=== PATIENT | female | born 1940 | race Caucasian/White ===

== ENCOUNTER 2018-12-14 07:16 | Outpatient (CLI) | payer MEDICARE ==
--- NOTE | 2018-12-14 08:17 | ULT ---
US Gallbladder RUQ HISTORY: Right upper quadrant abdominal pain COMPARISON: None. FINDINGS: The echogenicity of the liver is coarse likely due to fatty infiltration. No focal mass or intrahepatic ductal dilatation is seen. The pancreas and right kidney are normal. Multiple shadowing gallstones are seen without gallbladder wall thickening or pericholecystic fluid. The commo n duct measures 4 mm in diameter. No free fluid is seen in the Estrada's pouch. IMPRESSION: Cholelithiasis.
--- NOTE | 2018-12-14 10:40 | CT ---
CT ABDOMEN AND PELVIS WITH IV CONTRAST 12/14/2018 CLINICAL INFORMATION: Abdominal pain for one week. History of prior appendectomy as well as history of breast cancer. COMPARISON: None. Technique: Multiple contiguous axial CT images are obtained through the abdomen and pelvis with IV contrast. Cor onal reformatted images are provided. FINDINGS: Lower Chest: Postsurgical changes related to CABG are noted. Vascular calcifications are seen in the coronary arteries. Atelectasis is present in the lingula. 2 punctate pleural-based nodular densities are seen at the posterolateral right lung base stable from prior exam. Tiny punctate pulmon jason nodule is seen at the left lung base laterally which is also stable from the prior exam making potential representing small calcified granuloma. Vessels: Dense vascular calcifications are seen in the normal aorta involving the iliac arteries. The re is mild focal aneurysmal dilatation of the infrarenal abdominal aorta measuring approximately 3 cm in greatest AP dimension. Abdomen: Portal vein:Patent Gallbladder: Within normal limits for CT imaging. Liver: Calcified granulomata are seen. Pancreas: within normal limits. Spleen: Calcified granulomata are seen. Adrenals: within normal limits. Kidneys: A 12 mm low-density cystic lesion is seen in the midportion right kidney with a smaller hypo dense cystic lesion seen in the midportion left kidney which are difficult to further characterize but statistically likely represent cysts. There is an exophytic 3.9 cm cystic lesion inferior pole le ft kidney demonstrating attenuation coefficient consistent with a cyst. Bowel: There is colonic diverticulosis. Loops of small bowel are normal in caliber. Appendix: Not visualized. Patient has reported history of prior appendectomy. Peritoneum: No ascites or free air; no fluid collection. Mesentery and Retroperitoneum: No enlarged mesenteric or retroperitoneal lymph nodes. Abdominal Wall: Small focal area of stranding is seen in the adipose layer right posterior lateral ch est which may be related to minimal contusion in this region. Pelvis: Reproductive Organs: The uterus is small in size. Pelvis within normal limits. Bladder: within normal limits. Bones: Degenerative changes are seen in the spine. 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 No lytic or sclerotic osseous lesions are appreciated. IMPRESSION: 1. Difficult to characterize hypodense lesions in each kidney, but these lesions statistically likely represent small cysts. There is a larger exophytic left renal cyst identified. 2. Colonic diverticulosis. 3. No acute findings are seen in the abdomen or pelvis. 4. Dense vascular calcifications. 5. Tiny less than 3 mm nodular densities at each lung base. 6. Small focal aneurysmal dilatation of the abdominal aorta which measures 3 cm.
[2018-12-14] MEDS ORDERED: Iopamidol 370 76% 100 ML VIAL ONE (11:14)
== END 2018-12-14 07:17 | disposition home or self-care (01) ==
LOC: CT 07:16
PROVIDERS: ATTEND Family Medicine
DX: R10.9 Unspecified abdominal pain (principal); R63.4 Abnormal weight loss; N28.89 Other specified disorders of kidney and ureter; K57.30 Diverticulosis of large intestine without perforation or abscess without bleeding; I70.90 Unspecified atherosclerosis; R91.8 Other nonspecific abnormal finding of lung field; I77.811 Abdominal aortic ectasia; K80.20 Calculus of gallbladder without cholecystitis without obstruction
CPT/HCPCS: 74177; 76705; Q9967

== ENCOUNTER 2019-10-01 15:32 | Inpatient (IN) | payer MEDICARE ==
[2019-10-01] MEDS ORDERED: Furosemide 40 MG/4 ML VIAL ONE ×2 (16:56→20:18)
[2019-10-01 17:29] LABS: #Eosinphils 0.1 thou/uL (0.0-0.7); #Monocytes 0.6 thou/uL (0.11-0.59); #Neutrophils 11.3 thou/uL (1.40-6.50); %Basophils 0.3 % (0.0-1.0); %Eosinophils 0.7 % (0.0-10.0); %Lymphocytes 7.6 % (21.0-51.0); %Monocytes 4.4 % (0.0-10.0); %Neutrophils 86.9 % (42.0-75.0); Hemoglobin 7.3 g/dL (12.0-16.0); Mean Corpuscular HGB CONC 30.4 g/dL (32.0-36.0); Mean Corpuscular Hemoglobin 24.3 pg (27.0-31.0); Mean Corpuscular Volume 79.8 fL (78.0-98.0); Mean Platelet Volume 9.5 fL (7.4-10.4); Platelet Count 354 thou/uL (130-400); RBC Distribution Width 15.7 % (11.5-14.5); White Blood Cell (WBC) Count 13.1 thou/uL (4.8-10.8)
--- NOTE | 2019-10-01 17:37 | RAD ---
Chest AP view INDICATION: History of volume overload COMPARISON: October 03, 2016 and October 01, 2019 FINDINGS: Lungs:Left basilar pleural-parenchymal opacity persists suspicious for volume loss. Component of the left lower lobe pneumonia is not excluded. Cardiac silhouette:There is stable moderate cardiomegaly Pulmonary vasculature:Normal Pleural spaces:There is a moderate left and tiny right pleural effusion which is stable. Upper abdomen:No abnormality seen. Osseous structures: No acute osseous abnormality. Additional findings:Post-CABG changes stable IMPRESSION: Stable moderate left and tiny right pleural effusion. Stable moderate cardiomegaly. Persi stent left basilar airspace opacity most suspicious for volume loss. Pneumonia is not entirely excluded. Recommend correlation with the clinical exam.
[2019-10-01 18:00] LABS: ALT (SGPT) 13 U/L (8-55); AST (SGOT) 16 U/L (5-34); Albumin 4.1 g/dL (3.4-4.8); Alkaline Phosphatase 141 U/L (40-110); Anion Gap 15 mmol/L (10-20); BUN (Urea Nitrogen) 28 mg/dL (9.8-20.1); Bilirubin, Total 0.2 mg/dL (0.2-1.2); Calc. Creatinine Clearance 0 mL/min (70-130); Calcium 9.1 mg/dL (7.8-10.44); Carbon Dioxide 31 mmol/L (23-31); Chloride 100 mmol/L (98-107); Estimated GFR-MDRD 46; Glucose 229 mg/dL (83-110); Protein, Total 7.1 g/dL (6.0-8.3); Sodium 141 mmol/L (136-145)
[2019-10-01 18:14] LABS: CKMB 1.7 ng/mL (0-6.6)
[2019-10-01 21:33] LABS: Troponin I 0.087 ng/mL (< 0.028)
[2019-10-01] MEDS ORDERED: Ondansetron PF 4 MG/2 ML Vial IVP PRN (22:01)
[2019-10-01] MEDS ORDERED: Ondansetron ODT 4 MG TAB SL PRN (22:01)
[2019-10-02 00:39] LABS: Troponin I 0.088 ng/mL (< 0.028)
[2019-10-02] MEDS ORDERED: Loperamide HCl 2 MG CAP PO PRN (00:44)
[2019-10-02] MEDS ORDERED: Senokot S 8.6-50 MG TAB PO PRN (00:44)
[2019-10-02] MEDS ORDERED: Bisacodyl 5 MG TAB PO PRN (00:44)
[2019-10-02] MEDS ORDERED: Furosemide 100 MG/10 ML VIAL SLOW IVP SCH (01:00)
[2019-10-02] MEDS ORDERED: Dextrose 50% Abboject 50 ML SYRINGE SLOW IVP PRN (01:18)
[2019-10-02] MEDS ORDERED: Dextrose 5% in Water 1,000 ML IV PRN (01:18)
--- NOTE | 2019-10-02 05:38 | PDOC.HHP ---
Hospitalist HPI - History of Present Illness shortness of breath History of Present Illness: This is a 79 year old female with a past medical history of hypertension, COPD, CHF, who presented to the emergency room with shortness of breath . The patient states that her shortness of breath is worst with exertion and started a few days ago. It progressively got worst and she was having difficulty just ambulating to the bathroom. This morning her son increased her oxygen from 2.5L to 3L nasal cannula. The patient says her oxygen saturation was low but doesn't recall the number. She denies fevers, chills, sick contacts, cough,. SHe has been drinking approximately two jugs of water a day. SHe does feel her legs have gotten more swollen. THe patient says she takes lasix 40 mg daily at home and she is compliant with her medications. ED Course: In the ED, the patient had normal vital with oxygen saturation of 94% on 2L of oxygen. EKG showed new T wave inversions in V4-V6 and lead II and old T wave inversions in I and AVL. Troponin was positive at 0.80 and increased to 0.87. Creatinine was 1.15. Chest Xray shows large pleural effusion on the left. THe patient was given 40 mg IV lasix at 5:30 pm and 8:20 pm. Per nursing patient had only 200 output. The patient reports that her breathing had improved slightly after arriving on the floor. Hospitalist ROS - Review of Systems ENT: denies: ear pain, ear discharge Respiratory: denies: cough, dry, shortness of breath Cardiovascular: denies: chest pain, palpitations, orthopnea Gastrointestinal: denies: nausea, vomiting, abdominal pain, diarrhea, constipation Genitourinary: denies: dysuria, frequency, incontinence Musculoskeletal: denies: neck pain, shoulder pain, arm pain Hospitalist History - Past Medical History Cardiac: reports: CAD Pulmonary: reports: COPD - Past Surgical History Past Surgical History: reports: Appendectomy, CABG Other Surgical History: Right breast lumpectomy - Family History Other Family History: Brother had diabetes and of heart attack - Social History Smoking Status: Former smoker (Smoked for 50 years, quit three weeks ago. Approx 1 pack a day) Alcohol: reports: None Drugs: reports: none Living Situation: Alone Other Social History: Retired. Worked a [employer] - Exam General Appearance: NAD, awake alert Eye: PERRL, anicteric sclera ENT: normocephalic atraumatic, no oropharyngeal lesions Neck: no JVD Heart: RRR, no murmur, no gallops, no rubs Respiratory: CTAB, no wheezes, no rales, no ronchi Gastrointestinal: soft, non-tender, non-distended, normal bowel sounds Extremities: no cyanosis, 2+ LE edema Skin: normal turgor, no lesions, no rashes Neurological: cranial nerve grossly intact, normal sensation to touch, no focal deficits, no new deficit Hospitalist Results - Labs Result Diagrams: 10/02/19 04:00 10/02/19 04:00 Lab results: WBC 13.1 thou/uL (4.8-10.8) H 10/01/19 17:16 Hgb 7.3 g/dL (12.0-16.0) L 10/01/19 17:16 Hct 23.9 % (36.0-47.0) L 10/01/19 17:16 MCV 79.8 fL (78.0-98.0) 10/01/19 17:16 Plt Count 354 thou/uL (130-400) 10/01/19 17:16 Neutrophils % 86.9 % (42.0-75.0) H 10/01/19 17:16 Sodium 141 mmol/L (136-145) 10/01/19 17:16 Potassium 5.0 mmol/L (3.5-5.1) 10/01/19 17:16 Chloride 100 mmol/L (98-107) 10/01/19 17:16 Carbon Dioxide 31 mmol/L (23-31) 10/01/19 17:16 BUN 28 mg/dL (9.8-20.1) H 10/01/19 17:16 Creatinine 1.15 mg/dL (0.6-1.1) H 10/01/19 17:16 Glucose 229 mg/dL (83-110) H 10/01/19 17:16 Calcium 9.1 mg/dL (7.8-10.44) 10/01/19 17:16 Total Bilirubin 0.2 mg/dL (0.2-1.2) 10/01/19 17:16 AST 16 U/L (5-34) 10/01/19 17:16 ALT 13 U/L (8-55) 10/01/19 17:16 Alkaline Phosphatase 141 U/L (40-110) H 10/01/19 17:16 CK-MB (CK-2) 1.7 ng/mL (0-6.6) 10/01/19 17:16 Troponin I 0.088 ng/mL (< 0.028) H 10/02/19 00:02 B-Natriuretic Peptide 615.5 pg/mL (0-100) H 10/01/19 17:16 Serum Total Protein 7.1 g/dL (6.0-8.3) 10/01/19 17:16 Albumin 4.1 g/dL (3.4-4.8) 10/01/19 17:16 Hospitalist H&P A/P - Plan Plan: This is a 79 year old female with history of diastolic CHF, CAD s/p CABG presenting with gradually worsening shortness of breath over the past few days, likely from CHF exacerbation #Acute diastolic CHF exacerbation #Elevated troponin #CAD s/p CABG - chest Xray showed moderate left effusion and tiny right effusion. S/p 80 mg IV lasix in the ER - additional 80 mg IV lasix ordered - repeat labs in am - troponin elevated with EKG changes. CUrrently no chest pain, will placed cardiology consult and repeat ECHO SHARONDA - secondary to cardiorenal - creatinine improved from 1.15 to 1.0 with diuretics - check UA COPD - continue breathing treatments Breast cancer s/p right lumpectomy - stable DVT prophylaxis: Heparin COde status: full code
[2019-10-02 05:46] LABS: #Eosinphils 0.2 thou/uL (0.0-0.7); #Lymphocytes 1.1 thou/uL (1.20-3.40); #Monocytes 0.8 thou/uL (0.11-0.59); #Neutrophils 9.4 thou/uL (1.40-6.50); %Basophils 0.3 % (0.0-1.0); %Lymphocytes 9.2 % (21.0-51.0); %Neutrophils 81.5 % (42.0-75.0); ALT (SGPT) 12 U/L (8-55); AST (SGOT) 12 U/L (5-34); Albumin 3.8 g/dL (3.4-4.8); Alkaline Phosphatase 122 U/L (40-110); Anion Gap 14 mmol/L (10-20); BUN (Urea Nitrogen) 28 mg/dL (9.8-20.1); Bilirubin, Total 0.3 mg/dL (0.2-1.2); Calc. Creatinine Clearance 0 mL/min (70-130); Calcium 9.2 mg/dL (7.8-10.44); Carbon Dioxide 33 mmol/L (23-31); Chloride 97 mmol/L (98-107); Estimated GFR-MDRD 53; Globulin 2.9 g/dL (2.4-3.5); Glucose 234 mg/dL (83-110); Hemoglobin 7.3 g/dL (12.0-16.0); Mean Corpuscular HGB CONC 30.7 g/dL (32.0-36.0); Mean Corpuscular Hemoglobin 24.5 pg (27.0-31.0); Mean Corpuscular Volume 79.6 fL (78.0-98.0); Mean Platelet Volume 9.7 fL (7.4-10.4); Platelet Count 300 thou/uL (130-400); Potassium 3.8 mmol/L (3.5-5.1); Protein, Total 6.7 g/dL (6.0-8.3); RBC Distribution Width 15.5 % (11.5-14.5); Red Blood Cell (RBC) Count 2.99 mill/uL (4.20-5.40); Sodium 140 mmol/L (136-145); White Blood Cell (WBC) Count 11.5 thou/uL (4.8-10.8)
[2019-10-02] MEDS: Carvedilol 6.25 MG TAB PO SCH ×3 (06:13→20:39)
[2019-10-02] MEDS ORDERED: Simvastatin 40 MG TAB ONE (06:30)
[2019-10-02] MEDS: Simvastatin 40 MG TAB PO SCH ×2 (06:46→20:40)
--- NOTE | 2019-10-02 07:50 | RAD ---
EXAM: Chest PA and lateral: HISTORY: Follow-up pleural effusion COMPARISON: 10/01/2019 FINDINGS: Sternotomy wires are redemonstrated Heart: Marked cardiomegaly Aorta: Atherosclerosis Pulmonary vessels: Normal Costophrenic angles: Persistent left-sided pleural effusion. Lungs: Left lower lobe and lingular parenchymal changes due to atelectasis, pneumonia or aspiration. Additional chronic changes throughout the lung parenchyma. Pneumothorax: No pneumothorax Osseous structures: No osseous abnormalities IMPRESSION: Persistent pleural and parenchymal changes left lung base, no significant interval change.
[2019-10-02] MEDS: Acetaminophen 325 MG TAB PO PRN (09:53)
[2019-10-02] MEDS: Aspirin 325 mg Enteric Coated Tablet PO SCH (09:53)
[2019-10-02] MEDS: Heparin 5,000 UNITS/ML VIAL SC SCH ×3 (09:54→20:38)
[2019-10-02] MEDS: Amlodipine 10 MG TAB PO SCH (09:54)
[2019-10-02 11:37] LABS: Iron 10 ug/dL (50-170); Iron Binding Capacity, Total 391 mcg/dL (265-497)
[2019-10-02] MEDS: Furosemide 40 MG/4 ML VIAL SLOW IVP SCH (14:28)
--- NOTE | 2019-10-02 14:45 | PDOC.HOSPP ---
- Subjective Encounter Date: 10/02/19 Encounter Time: 08:00 Subjective: Pt seen for followup re; CHF exacerbation. Feels better. - Objective Vital Signs & Weight: Vital Signs (12 hours) Temp Pulse Pulse Pulse Resp BP BP 10/02/19 13:00 98.2 F 88 16 10/02/19 11:51 89 70 108/56 L 10/02/19 09:00 98.3 F 101 H 16 10/02/19 06:13 132/62 10/02/19 03:45 98.9 F 92 16 BP BP Pulse Ox 10/02/19 13:00 108/56 L 96 10/02/19 11:51 112/51 L 10/02/19 09:00 122/61 10/02/19 06:13 10/02/19 03:45 132/62 91 L Weight Weight 201 lb 3.2 oz I&O: 10/01/19 10/02/19 10/03/19 06:59 06:59 06:59 Intake Total 237 Output Total 825 Balance -588 Result Diagrams: 10/02/19 04:00 10/02/19 04:00 Additional Labs: Accuchecks 10/02/19 06:35 POC Glucose 253 H labs and MARs reviewed by me EKG Reviewed by me: Yes (Tele: a. génesis) Hospitalist ROS - Review of Systems Respiratory: reports: cough, dry, shortness of breath, SOB with excertion. denies: hemoptysis, pleuritic pain, sputum, wheezing Cardiovascular: denies: chest pain, palpitations, orthopnea, paroxysmal noc. dyspnea, edema, light headedness - Medication Medications: Active Medications Generic Name Dose Route Start Last Admin Trade Name Freq PRN Reason Stop Dose Admin Acetaminophen 650 mg 10/02/19 00:44 10/02/19 09:53 Tylenol PO 650 mg Q4H PRN Administration Headache/Fever/Mild Pain (1-3) Amlodipine Besylate 10 mg 10/02/19 09:00 10/02/19 09:54 Norvasc PO 10 mg DAILY WONG Administration Aspirin 325 mg 10/02/19 09:00 10/02/19 09:53 Ecotrin PO 325 mg QAM WONG Administration Carvedilol 6.25 mg 10/02/19 01:18 10/02/19 09:53 Coreg PO 6.25 mg BID WONG Administration Heparin Sodium (Porcine) 5,000 units 10/02/19 09:00 10/02/19 09:54 Heparin SC 5,000 units TID WONG Administration Pantoprazole Sodium 20 mg 10/02/19 09:00 10/02/19 09:53 Protonix PO 20 mg DAILY WONG Administration Simvastatin 40 mg 10/02/19 01:18 10/02/19 06:46 Zocor PO 40 mg HS WONG Administration - Exam General Appearance: NAD Eye: anicteric sclera ENT: moist mucosa Neck: supple, symmetric, no thyromegaly, JVD Heart: no gallops, no rubs, normal peripheral pulses, irregular Respiratory: rales Gastrointestinal: soft, non-tender, non-distended, normal bowel sounds Extremities: 1+ LE edema Psychiatric: normal affect, normal behavior, A&O x 3 Hosp A/P - Plan #Acute diastolic CHF exacerbation NYHA Class 3 -Await 2D echo. -continue iv furosemide -clinically improved #Elevated troponin -likely due to CHF exacerbation #CAD s/p CABG - no chest pain #Acute on chronic stage 2 renal failure - creatinine improved 1.0 - Monitor creatinine and lytes #COPD - continue breathing treatments -clinically stable #Breast cancer s/p right lumpectomy - stable
--- NOTE | 2019-10-02 14:59 | CON ---
DATE OF CONSULTATION: 10/02/2019 REASON FOR CONSULTATION: Shortness of breath and pleural effusion. HISTORY OF PRESENT ILLNESS: Ms. Vazquez is a 79-year-old woman, who I have seen and evaluated in the past. She has had a history of CAD, status post bypass surgery many years ago. She presented with increased shortness of breath over the last several weeks. No chest pain or pressure noted. She does state she has had lower extremity edema. She does have underlying COPD and is followed by Dr. Ramu Richardson. She was given Lasix given the pleural effusion with some improvement, but continues with symptoms. She also appears to have new-onset anemia with a hemoglobin of 7.3. After reviewing her chart, her last CBC at [facility] was in 2019, where her hemoglobin was within normal limits. CURRENT MEDICATIONS: Include: 1. Amlodipine. 2. Centrum Silver. 3. Levemir. 4. Pantoprazole. 5. Janumet. 6. Meloxicam. 7. Allopurinol. 8. Simvastatin. 9. Coreg. 10. Potassium. 11. GoodSense. 12. Lisinopril. 13. Lasix. 14. Symbicort. PAST MEDICAL HISTORY: CAD, status post bypass surgery; hypertension; COPD; diabetes mellitus; hyperlipidemia; appendectomy; lumpectomy; and CABG x3 in 2012. SOCIAL HISTORY: Continued tobacco use, unfortunately. No alcohol use. ALLERGIES: NONE. REVIEW OF SYSTEMS: A 10-point review of systems is reviewed and as above, otherwise negative. PHYSICAL EXAMINATION: GENERAL: Patient is a pleasant 79-year-old woman, who is in no acute distress. The patient appears their stated age. VITAL SIGNS: Blood pressure 108/56, pulse 88, temperature 98.2. NEUROLOGIC: The patient is alert and oriented x3 with no focal neurologic deficits. HEENT: Sclerae without icterus. Mouth has moist mucous membranes with normal pallor. NECK: No JVD. Carotid upstroke brisk. No bruits bilaterally. LUNGS: Decreased breath sounds on the left versus right. BACK: No scoliosis or kyphosis. CARDIAC: Regular rate and rhythm with normal S1 and S2. No S3 or S4 noted. No significant rubs, murmurs, thrills, or gallops noted throughout the precordium. PMI is not displaced. There is no parasternal heave. ABDOMEN: Soft, nontender, nondistended. No peritoneal signs present. No hepatosplenomegaly. No abnormal striae. EXTREMITIES: 1 to 2+ pitting edema. 2+ femoral and 2+ dorsalis pedis pulses. No cyanosis, clubbing. SKIN: No gross abnormalities. PERTINENT LABORATORY DATA: Hemoglobin 7.3, hematocrit 23.8, white blood cell count 11.5. Creatinine 1.01, chloride 97, CO2 of 33. Current glucose 234. Telemetry monitoring suggests atrial fibrillation. IMPRESSION: 1. Shortness of breath. 2. Atrial fibrillation. 3. Chronic obstructive pulmonary disease. 4. Anemia. 5. Tobacco abuse. RECOMMENDATIONS: Ms. Vazquez's symptoms are likely multifactorial. Her last LVEF estimated 55% to 60% with mild aortic stenosis. She also has anemia with a new left-sided pleural effusion in addition to COPD. At this point, we will continue with Lasix. Consider transfusion if symptoms continue. Recommend repeating her echo. Last echo was over 1 year ago. She also appears to have new-onset atrial fibrillation. At this point, we will hold off on anticoagulants until further assessment of anemia is noted. This is felt to be a new finding based on her CBC 1 year ago. Job ID: [id number]
[2019-10-02] MEDS ORDERED: METFORMIN HCL PO SCH (17:00)
[2019-10-02] MEDS ORDERED: SITAGLIPTIN PHOS PO SCH (17:00)
[2019-10-02] MEDS: Mometasone/Formoterol 120 PUFF INHALER INH SCH (18:18)
[2019-10-02] MEDS: PROVENTIL INHALER 6.7 G (200 INHALATIONS) INH SCH (18:19)
[2019-10-02 19:03] LABS: Bacteria/HPF None Seen HPF (None Seen); Bilirubin Negative (Negative); Blood, Urine Negative (Negative); Clarity Clear (Clear); Glucose, Urine (Dipstick) Normal (Negative); Leukocyte 250 Leu/uL (Negative); Nitrite Negative (Negative); Protein, Urine (Dipstick) Negative (Neg-Trace); RBC/HPF 0-3 HPF (0-3); Renal Epithelial 0-3 HPF (None Seen); Squamous Epithelial 0-3 HPF (0-3); Transitional Epithelial 0-3 HPF (None Seen); Urobilinogen Normal mg/dL (Less than 2); WBC/HPF 0-3 HPF (0-3)
[2019-10-02 19:05] LABS: Urine Culture Reflex Yes Yes
[2019-10-02] MEDS: HumaLOG 300 UNITS/3 ML VIAL SC PRN (20:38)
[2019-10-02] MEDS: Insulin Glargine 4 UNITS in Pre-Filled Syringe 1 EACH SC SCH (20:39)
[2019-10-02] MEDS ORDERED: Non-Formulary Item 1 EACH (Budesonide-Formoterol [Symbicort 160-4.5] 2 PUFF) INH SCH (21:00)
[2019-10-02] MEDS ORDERED: ALBUTEROL SULFATE INH SCH (21:00)
[2019-10-02] MEDS ORDERED: Ferrous Sulfate 325 MG TAB PO SCH (21:30)
--- NOTE | 2019-10-02 23:53 | CON ---
DATE OF CONSULTATION: 10/02/2019 CONSULTING PHYSICIAN: Dong Devries MD REASON FOR CONSULTATION: Shortness of breath. HISTORY OF PRESENT ILLNESS: Ms. Vazquez came to my office yesterday on an urgent visit requesting to be seen because of increasing shortness of breath. I found her to be in florid congestive heart failure and had her sent to the emergency room for further evaluation, workup, and admission to the hospitalist group. She was diuresed last night. She says she is breathing better today. PAST MEDICAL HISTORY: 1. Congestive heart failure, diastolic. 2. Coronary artery disease. 3. COPD, quit smoking 3 weeks ago. 4. Diabetes mellitus. PAST SURGICAL HISTORY: 1. Coronary artery bypass grafting surgery. 2. Appendectomy. 3. Breast lumpectomy. SOCIAL HISTORY: Quit smoking 3 weeks ago after heavy consumption in the past. Does not consume alcohol. ALLERGIES: NONE. MEDICATIONS: Prior to admission, reviewed, see chart. REVIEW OF SYSTEMS: Remarkable for shortness breath, orthopnea, PND. Otherwise, negative. PHYSICAL EXAMINATION: VITAL SIGNS: Temperature 98, pulse 80, respirations 20, saturating 94% on 3 L, and blood pressure 108/56. GENERAL: She is awake, appears much less dyspneic than yesterday. HEENT: Unremarkable. NECK: No adenopathy or JVD. LUNGS: She has improved air movement in both bases compared to yesterday. She has slight dullness to percussion in the left base. CARDIOVASCULAR: S1 and S2. Regular. ABDOMEN: Soft, obese, nontender, nondistended. EXTREMITIES: Trace edema. IMAGING STUDIES: Her x-ray shows bilateral effusions, left greater than right. The left effusion is probably better compared to yesterday. An echocardiogram is pending. LABORATORY DATA: White blood cell count 11.5, hematocrit 23.8, and platelet count 300. Sodium 140, potassium 3.8, chloride 97, CO2 of 33, BUN 28, creatinine 1.0, glucose 234. BNP level was 615. ASSESSMENT: 1. Acute congestive heart failure, primarily diastolic. 2. History of mild aortic stenosis. 3. Bilateral pleural effusions. 4. Anemia. 5. Underlying chronic obstructive pulmonary disease. RECOMMENDATIONS: I have recommended to her that the pleural effusions be treated with diuresis as we are most likely looking at transudative effusions from diastolic congestive heart failure. Her COPD seems to be under good control at this point. Thank you for the referral. We will follow. Job ID: [id number]
[2019-10-03] MEDS: Furosemide 40 MG/4 ML VIAL SLOW IVP SCH ×2 (05:58→14:17)
[2019-10-03] MEDS: PROVENTIL INHALER 6.7 G (200 INHALATIONS) INH SCH ×2 (07:07→19:08)
[2019-10-03] MEDS: Mometasone/Formoterol 120 PUFF INHALER INH SCH ×2 (07:10→19:10)
[2019-10-03] MEDS: Multivitamin W/ Minerals 1 TAB PO SCH (08:33)
[2019-10-03] MEDS: Heparin 5,000 UNITS/ML VIAL SC SCH ×3 (08:33→20:33)
[2019-10-03] MEDS: Aspirin 325 mg Enteric Coated Tablet PO SCH (08:34)
[2019-10-03] MEDS: Carvedilol 6.25 MG TAB PO SCH ×2 (08:34→20:34)
[2019-10-03] MEDS: Potassium Chloride 20 MEQ TAB PO SCH (08:34)
[2019-10-03] MEDS: Amlodipine 10 MG TAB PO SCH (08:34)
[2019-10-03] MEDS: Ferrous Sulfate 325 MG TAB PO SCH ×2 (08:34→17:00)
[2019-10-03] MEDS: Metolazone 2.5 MG TAB PO SCH (08:34)
[2019-10-03 08:41] LABS: #Basophils 0.1 thou/uL (0.0-0.2); #Eosinphils 0.3 thou/uL (0.0-0.7); #Lymphocytes 1.2 thou/uL (1.20-3.40); #Monocytes 0.6 thou/uL (0.11-0.59); #Neutrophils 8.3 thou/uL (1.40-6.50); %Basophils 0.8 % (0.0-1.0); %Eosinophils 2.7 % (0.0-10.0); %Monocytes 6.2 % (0.0-10.0); %Neutrophils 79.3 % (42.0-75.0); Hemoglobin 7.2 g/dL (12.0-16.0); Mean Corpuscular HGB CONC 30.4 g/dL (32.0-36.0); Mean Corpuscular Hemoglobin 23.6 pg (27.0-31.0); Mean Corpuscular Volume 77.9 fL (78.0-98.0); Mean Platelet Volume 9.6 fL (7.4-10.4); Platelet Count 310 thou/uL (130-400); RBC Distribution Width 15.8 % (11.5-14.5); Red Blood Cell (RBC) Count 3.04 mill/uL (4.20-5.40); White Blood Cell (WBC) Count 10.4 thou/uL (4.8-10.8)
--- NOTE | 2019-10-03 08:59 | PRG ---
DATE OF SERVICE: 10/03/2019 SUBJECTIVE: Ms. Vazquez is doing somewhat better, had no acute complaints this morning. OBJECTIVE: VITAL SIGNS: On exam, temperature is 98.5, pulse 85, respirations 16, and O2 saturation 95% on 3 L. HEENT: Unremarkable. NECK: No adenopathy or JVD. LUNGS: Diminished breath sounds in both bases. CARDIAC: S1 and S2. Regular. ABDOMEN: Soft. EXTREMITIES: 2+ edema in her ankles. LABORATORY DATA: No labs have resulted today. ASSESSMENT: 1. Acute diastolic congestive heart failure. 2. Bilateral pleural effusions. PLAN: Continue diuresis. We will recheck a chest x-ray tomorrow. Job ID: [id number]
[2019-10-03] MEDS ORDERED: INSULIN DETEMIR 4 UNIT SQ SCH (09:00)
[2019-10-03] MEDS ORDERED: Non-Formulary Item 1 EACH (Potassium Chloride [Potassium Chloride] 20 MEQ) PO SCH (09:00)
[2019-10-03] MEDS ORDERED: Non-Formulary Item 1 EACH (Multivit-Min/Iron/Folic/Lutein [Centrum Silver Women] 1 TAB) PO SCH (09:00)
[2019-10-03 09:04] LABS: Anion Gap 14 mmol/L (10-20); BUN (Urea Nitrogen) 35 mg/dL (9.8-20.1); Calc. Creatinine Clearance 55 mL/min (70-130); Calcium 8.6 mg/dL (7.8-10.44); Carbon Dioxide 33 mmol/L (23-31); Chloride 96 mmol/L (98-107); Estimated GFR-MDRD 43; Glucose 197 mg/dL (83-110); Potassium 4.2 mmol/L (3.5-5.1); Sodium 139 mmol/L (136-145)
--- NOTE | 2019-10-03 11:51 | PQF ---
TAMMY ROSALES GEOFFREY NOVOA [id number] CLINICAL DOCUMENTATION IMPROVEMENT CLARIFICATION FORM: ICD-10 Updated PLEASE DO AN ADDENDUM TO THE PROGRESS NOTE WITH ANY DOCUMENTATION UPDATES OR ADDITIONS AND CARRY THROUGH TO DC SUMMARY. THANK YOU. DATE: 10/03/2019 ATTN: DR. Andrea BROUSSARD Please exercise your independent, professional judgment in responding to the clarification form. Clinical indicators are provided on the bottom of this form for your review. Please check appropriate box(s): [ ] Acute On Chronic Respiratory Failure: [ ] with Hypoxia [ ] with Hypercapnia [ ] Chronic Respiratory Failure only [ ] with Hypoxia [ ] with Hypercapnia [ ] Hypoxia [ ] Other diagnosis [ ] Unable to determine In addition, please specify: Present on Admission (POA): [ ] Yes [ ] No [ ] Unable to determine For continuity of documentation, please document condition throughout progress notes and discharge summary. Thank You. CLINICAL INDICATORS - SIGNS / SYMPTOMS / LABS / RESULTS AND LOCATION IN MR 10/01 ED REPORT: PT SENT FROM DR OCHOA OFFICE FOR OVERLOAD, PT USUALLY WEARS 2L/NC AT HOME, WENT UP TO 3L THIS AM, PT ON 5L ON ARRIVAL TO ED. RESP 18-24, 91% 4L/NC, PT REPORTS SOB, FATIGUE AND WEAKNESS 10/01 H&P (LOPEZ) HPI: THIS MORNING PT SON INCREASED HER OXYGEN FROM 2.5-3;/NC PLAN: THIS IS A 79 YEAR OLD FEMALE WITH A HX OF DIASTOLIC CHF, CAD S/P CABG PRESENTING WITH GRADUALLY WORSENING SOB OVER THE PAST FEW DAYS, LIKELY FROM CHF EXACERBATION. 10/03 PN (JANNA) ASSESSMENT: 2). BILATERAL PLEURAL EFFUSIONS. RISK: HX/DX CHF, COPD (H&P/LOPEZ) 10/01 DX LEFT SIDE PLEURAL EFFUSION (CONSULT/JAZMIN) 10/02 HX TOBACCO USE, QUIT SMOKING X 3 WEEKS AGO (ED REPORT/10/01) TREATMENTS: SUPPLEMENTAL OXYGEN( 10/01-PRESENT) LASIX 40MG IVP ( 10/01 - PRESENT) PULMONOLOGY CONSULT (JANNA/ 10/02) Acute Respiratory Failure: ABG pH < 7.35 or > 7.45; Decreased oxygen saturation (<90% room air or < 95% on oxygen); PCO2 > 50 mm Hg; PO2 < 60 mm Hg; Labored or rapid respirations ARDS: Dx Criteria [[place] ARDS]: Respiratory symptoms within one week of a known clinical insult (e.g. shock, infection, surgery, trauma) Bilateral opacities in CXR/Chest CT not due to CHF or fluid THANK YOU! MIKAEL (This form is maintained as a part of the permanent medical record) 2014 [employer], [employer]. All Rights Reserved [email or web address] [phone] [email or web address]
[2019-10-03] MEDS: JANUMET PO SCH ×2 (12:10→16:59)
[2019-10-03] MEDS: HumaLOG 300 UNITS/3 ML VIAL SC PRN (12:41)
--- NOTE | 2019-10-03 18:31 | CON ---
DATE OF CONSULTATION: 10/03/2019 SUBJECTIVE: Ms. Vazquez states she is doing better. She is breathing better. She continues to have shortness of breath, but is improving. Her hemoglobin remains low. A recent echo did suggest LVEF 50% to 55% with mild concentric LVH. She did have underlying atrial fibrillations, was difficult to assess her diastolic function. OBJECTIVE: GENERAL: Patient is a pleasant 79-year-old who is in no acute distress. The patient appears their stated age. VITAL SIGNS: Blood pressure 115/51, pulse 82, temperature afebrile. I's and O's -363. NEUROLOGIC: The patient is alert and oriented x3 with no focal neurologic deficits. HEENT: Sclerae without icterus. Mouth has moist mucous membranes with normal pallor. NECK: No JVD. Carotid upstroke brisk. No bruits bilaterally. LUNGS: Crackles noted bilaterally with decreased breath sounds noted on the left versus right. BACK: No scoliosis or kyphosis. CARDIAC: Regular rate and rhythm with normal S1 and S2. No S3 or S4 noted. No significant rubs, murmurs, thrills, or gallops noted throughout the precordium. PMI is not displaced. There is no parasternal heave. ABDOMEN: Soft, nontender, nondistended. No peritoneal signs present. No hepatosplenomegaly. No abnormal striae. EXTREMITIES: 2+ femoral and 2+ dorsalis pedis pulses. No cyanosis, clubbing, or edema. SKIN: No gross abnormalities. PERTINENT LABORATORY DATA: Hemoglobin 7.2, creatinine 1.21, chloride 96, ferritin 6.88. IMPRESSION: 1. Shortness of breath. 2. Likely diastolic dysfunction. 3. Chronic obstructive pulmonary disease. 4. Tobacco abuse. 5. Anemia. RECOMMENDATIONS: Certainly her symptoms are likely multifactorial. Her LVEF is normal. She likely has diastolic dysfunction. I agree with continued diuresis. I am concerned about anticoagulating Ms. Vazquez. She continues to be anemic. On review of her hemoglobin last year, her hemoglobin appeared much better. May consider GI consultations by Primary Team. Job ID: [id number]
--- NOTE | 2019-10-03 18:34 | PDOC.HOSPP ---
- Subjective Encounter Date: 10/03/19 Encounter Time: 13:00 Subjective: Pt seen for followup re: acute diastolic heart failure. Feels better. - Objective Vital Signs & Weight: Vital Signs (12 hours) Temp Pulse Resp BP BP BP BP 10/03/19 16:00 98.7 F 80 20 97/55 L 10/03/19 11:57 98.5 F 82 20 115/51 L 10/03/19 08:34 85 112/52 L 10/03/19 07:30 98.4 F 83 22 H 112/52 L 10/03/19 07:12 10/03/19 07:10 85 16 10/03/19 07:07 85 16 Pulse Ox 10/03/19 16:00 99 10/03/19 11:57 99 10/03/19 08:34 10/03/19 07:30 94 L 10/03/19 07:12 95 10/03/19 07:10 95 10/03/19 07:07 95 Weight Weight 199 lb 1.6 oz I&O: 10/02/19 10/03/19 10/04/19 06:59 06:59 06:59 Intake Total 1437 Output Total 1800 Balance -363 Result Diagrams: 10/03/19 08:29 10/03/19 08:29 Additional Labs: Accuchecks 10/03/19 10/03/19 10/03/19 16:40 11:23 05:24 POC Glucose 163 H 376 H 201 H 10/02/19 20:28 POC Glucose 307 H Labs and MARs reviewed by me EKG Reviewed by me: Yes (Tele; NSR) Hospitalist ROS - Review of Systems Respiratory: reports: cough, SOB with excertion, sputum. denies: dry, shortness of breath, hemoptysis, pleuritic pain, wheezing Cardiovascular: denies: chest pain, palpitations, orthopnea, paroxysmal noc. dyspnea, edema, light headedness - Medication Medications: Active Medications Generic Name Dose Route Start Last Admin Trade Name Freq PRN Reason Stop Dose Admin Acetaminophen 650 mg 10/02/19 00:44 10/02/19 09:53 Tylenol PO 650 mg Q4H PRN Administration Headache/Fever/Mild Pain (1-3) Albuterol Sulfate 1 puff 10/02/19 18:30 10/03/19 07:07 Proventil Hfa INH 1 puff BID-RT WONG Administration Amlodipine Besylate 10 mg 10/02/19 09:00 10/03/19 08:34 Norvasc PO 10 mg DAILY WONG Administration Aspirin 325 mg 10/02/19 09:00 10/03/19 08:34 Ecotrin PO 325 mg QAM WONG Administration Carvedilol 6.25 mg 10/02/19 01:18 10/03/19 08:34 Coreg PO 6.25 mg BID WONG Administration Ferrous Sulfate 325 mg 10/03/19 08:00 10/03/19 17:00 Feosol PO 325 mg BID-WM WONG Administration Furosemide 40 mg 10/02/19 14:00 10/03/19 14:17 Lasix SLOW IVP 40 mg 0600,1400 WONG Administration Heparin Sodium (Porcine) 5,000 units 10/02/19 09:00 10/03/19 14:17 Heparin SC 5,000 units TID WONG Administration Insulin Glargine 4 units/ 0.04 mls @ 0 mls/hr 10/02/19 21:00 10/02/19 20:39 Miscellaneous Medication SC 0.04 mls HS WONG Administration Insulin Human Lispro 0 units 10/02/19 01:18 10/03/19 12:41 Humalog SC 6 unit .MILD SLIDING SCALE PRN Administration Mild Correctional Scale Iron/Minerals/Multivitamins 1 tab 10/03/19 09:00 10/03/19 08:33 Theragran M PO 1 tab DAILY WONG Administration Metolazone 2.5 mg 10/03/19 08:30 10/03/19 08:34 Zaroxolyn PO 2.5 mg 0830 WONG Administration Mometasone Furoate/Formoterol Fumar 2 puff 10/02/19 18:30 10/03/19 07:10 Dulera 200 Mcg/5 Mcg Inhaler INH 2 puff BID-RT WONG Administration Pantoprazole Sodium 20 mg 10/02/19 09:00 10/03/19 08:33 Protonix PO 20 mg DAILY WONG Administration Janumet Xr 0 each 10/02/19 17:00 10/03/19 16:59 Mg PO 2 each QPM-WM WONG Administration Potassium Chloride 20 meq 10/03/19 09:00 10/03/19 08:34 K-Dur PO 20 meq DAILY WONG Administration Simvastatin 40 mg 10/02/19 01:18 10/02/19 20:40 Zocor PO 40 mg HS WONG Administration Sodium Chloride 10 ml 10/01/19 22:01 10/03/19 14:17 Flush - Normal Saline IVF 10 ml PRN PRN Administration Saline Flush - Exam General - other findings: Obese Eye: anicteric sclera ENT: moist mucosa Neck: supple Heart: RRR Respiratory: rales Gastrointestinal: soft, non-tender Extremities: 1+ LE edema Psychiatric: normal affect, normal behavior Hosp A/P - Plan #Acute diastolic CHF exacerbation NYHA Class 3 -clinically improved -continue iv furosemide #Acute on chronic hypoxic respiratory failure - POA, improving #Elevated troponin -NSTEMI II secondary to CHF exacerbation. #CAD s/p CABG - stable #Acute on chronic stage 2 renal failure - Monitor creatinine and lytes #COPD - stable #Breast cancer s/p right lumpectomy - stable #DM2 - sugars poorly controlled. Switch to moderate insulin sliding scale and start 1800 david diet.
[2019-10-03] MEDS: Insulin Glargine 4 UNITS in Pre-Filled Syringe 1 EACH SC SCH (20:33)
[2019-10-03] MEDS: Simvastatin 40 MG TAB PO SCH (20:34)
[2019-10-04 04:02] LABS: #Eosinphils 0.3 thou/uL (0.0-0.7); #Lymphocytes 1.4 thou/uL (1.20-3.40); #Monocytes 0.8 thou/uL (0.11-0.59); #Neutrophils 8.2 thou/uL (1.40-6.50); %Eosinophils 2.6 % (0.0-10.0); %Monocytes 7.3 % (0.0-10.0); %Neutrophils 77.1 % (42.0-75.0); Hemoglobin 6.3 g/dL (12.0-16.0); Mean Corpuscular HGB CONC 29.5 g/dL (32.0-36.0); Mean Corpuscular Hemoglobin 23.2 pg (27.0-31.0); Mean Corpuscular Volume 78.6 fL (78.0-98.0); Mean Platelet Volume 10.1 fL (7.4-10.4); Platelet Count 277 thou/uL (130-400); RBC Distribution Width 15.7 % (11.5-14.5); Red Blood Cell (RBC) Count 2.74 mill/uL (4.20-5.40); White Blood Cell (WBC) Count 10.7 thou/uL (4.8-10.8)
[2019-10-04 04:23] LABS: Anion Gap 12 mmol/L (10-20); BUN (Urea Nitrogen) 43 mg/dL (9.8-20.1); Calc. Creatinine Clearance 49 mL/min (70-130); Calcium 8.4 mg/dL (7.8-10.44); Carbon Dioxide 35 mmol/L (23-31); Chloride 97 mmol/L (98-107); Estimated GFR-MDRD 38; Glucose 196 mg/dL (83-110); Potassium 4.1 mmol/L (3.5-5.1); Sodium 140 mmol/L (136-145)
[2019-10-04] MEDS: Furosemide 40 MG/4 ML VIAL SLOW IVP SCH ×2 (05:48→14:58)
[2019-10-04] MEDS: Mometasone/Formoterol 120 PUFF INHALER INH SCH ×2 (07:03→18:28)
[2019-10-04] MEDS: PROVENTIL INHALER 6.7 G (200 INHALATIONS) INH SCH ×2 (07:03→18:28)
--- NOTE | 2019-10-04 07:41 | RAD ---
Portable frontal chest radiograph: 10/04/2019 COMPARISON: 10/01/2019 HISTORY: Pneumonia FINDINGS: Stable midline sternotomy wires and prominence of the cardiac silhouette. Stable mild pulmo nary vascular congestion. No pneumothorax seen. There is persistent dense opacity within the left lung base with obscuration of the left heart border and left hemidiaphragm as well as blunting of the left costophrenic angle. IMPRESSION: Stable dense pleural and parenchymal opacity within the left lung base.
[2019-10-04] MEDS: Ferrous Sulfate 325 MG TAB PO SCH ×2 (09:10→17:40)
[2019-10-04] MEDS: Multivitamin W/ Minerals 1 TAB PO SCH (09:10)
[2019-10-04] MEDS: Amlodipine 10 MG TAB PO SCH (09:10)
[2019-10-04] MEDS: Carvedilol 6.25 MG TAB PO SCH ×2 (09:11→20:02)
[2019-10-04] MEDS: Potassium Chloride 20 MEQ TAB PO SCH (09:11)
[2019-10-04] MEDS: Metolazone 2.5 MG TAB PO SCH (09:11)
[2019-10-04] MEDS: Aspirin 325 mg Enteric Coated Tablet PO SCH (09:11)
[2019-10-04] MEDS: HumaLOG 300 UNITS/3 ML VIAL SC PRN ×3 (09:23→17:44)
[2019-10-04] MEDS: Heparin 5,000 UNITS/ML VIAL SC SCH ×3 (09:32→20:02)
--- NOTE | 2019-10-04 10:11 | PRG ---
DATE OF SERVICE: 10/04/2019 SUBJECTIVE: The patient states that she is breathing better. She is sitting up. She is talking to family today without much difficulty. OBJECTIVE: VITAL SIGNS: Temperature 98, pulse 74, blood pressure 146/64, O2 sat 95%. I's and O's showed only negative 500 output yesterday. HEENT: Unremarkable. NECK: No adenopathy or JVD. LUNGS: Slightly diminished breath sounds in the left base. Right side clear. CARDIAC: S1 and S2, regular. ABDOMEN: Soft. EXTREMITIES: No edema. LABORATORY DATA: White blood cell count 10, hematocrit 21.5, and platelet count 277. Sodium 140, potassium 4.1, chloride 97, CO2 of 35, BUN 43, creatinine 1.3, and glucose 196. ASSESSMENT: 1. Acute diastolic congestive heart failure. 2. Mild aortic stenosis. 3. Bilateral pleural effusions, left greater than right, slight improvement on the x-ray. 4. Underlying chronic obstructive pulmonary disease. 5. Anemia. RECOMMENDATIONS: We would suggest transfusing the patient and also continuing with aggressive diuresis. There is no urgent indication for thoracentesis at this time. Job ID: [id number]
[2019-10-04 11:31] LABS: Hemoglobin 8.4 g/dL (12.0-16.0)
--- NOTE | 2019-10-04 14:15 | PDOC.HOSPP ---
- Subjective Encounter Date: 10/04/19 Encounter Time: 09:00 Subjective: Pt seen for followup re: acute CHF. Feels better today. - Objective Vital Signs & Weight: Vital Signs (12 hours) Temp Pulse Pulse Resp BP BP BP 10/04/19 12:00 71 10/04/19 09:15 96.9 F L 74 20 145/64 H 10/04/19 09:11 146/64 H 10/04/19 09:10 74 145/64 H 10/04/19 08:00 96.9 F L 74 20 10/04/19 06:23 98.0 F 65 16 112/74 10/04/19 04:00 99.0 F 78 16 99/48 L BP Pulse Ox 10/04/19 12:00 137/56 L 10/04/19 09:15 98 10/04/19 09:11 10/04/19 09:10 10/04/19 08:00 145/64 H 98 10/04/19 06:23 95 10/04/19 04:00 95 Weight Weight 197 lb 8 oz I&O: 10/03/19 10/04/19 10/05/19 06:59 06:59 06:59 Intake Total 1437 300 350 Output Total 1800 800 Balance -363 -500 350 Result Diagrams: 10/04/19 11:22 10/04/19 03:48 Additional Labs: Accuchecks 10/04/19 10/04/19 10/03/19 10:46 05:27 20:32 POC Glucose 308 H 221 H 179 H 10/03/19 16:40 POC Glucose 163 H Labs and MARs reviewed by me EKG Reviewed by me: Yes (Tele: NSR) Hospitalist ROS - Review of Systems Respiratory: reports: SOB with excertion Cardiovascular: reports: orthopnea, edema. denies: chest pain, palpitations, paroxysmal noc. dyspnea, light headedness, other Gastrointestinal: denies: nausea, vomiting, abdominal pain, diarrhea, constipation, melena, hematochezia - Medication Medications: Active Medications Generic Name Dose Route Start Last Admin Trade Name Freq PRN Reason Stop Dose Admin Acetaminophen 650 mg 10/02/19 00:44 10/02/19 09:53 Tylenol PO 650 mg Q4H PRN Administration Headache/Fever/Mild Pain (1-3) Albuterol Sulfate 1 puff 10/02/19 18:30 10/04/19 07:03 Proventil Hfa INH 1 puff BID-RT WONG Administration Amlodipine Besylate 10 mg 10/02/19 09:00 10/04/19 09:10 Norvasc PO 10 mg DAILY WONG Administration Aspirin 325 mg 10/02/19 09:00 10/04/19 09:11 Ecotrin PO 325 mg QAM WONG Administration Carvedilol 6.25 mg 10/02/19 01:18 10/04/19 09:11 Coreg PO 6.25 mg BID WONG Administration Ferrous Sulfate 325 mg 10/03/19 08:00 10/04/19 09:10 Feosol PO 325 mg BID-WM WONG Administration Furosemide 40 mg 10/02/19 14:00 10/04/19 05:48 Lasix SLOW IVP 40 mg 0600,1400 WONG Administration Heparin Sodium (Porcine) 5,000 units 10/02/19 09:00 10/04/19 09:32 Heparin SC Not Given TID WONG Insulin Glargine 4 units/ 0.04 mls @ 0 mls/hr 10/02/19 21:00 10/03/19 20:33 Miscellaneous Medication SC 0.04 mls HS WONG Administration Insulin Human Lispro 0 units 10/03/19 18:39 10/04/19 11:45 Humalog SC 8 unit .MODERATE SLIDING SC PRN Administration Moderate Correctional Scale Iron/Minerals/Multivitamins 1 tab 10/03/19 09:00 10/04/19 09:10 Theragran M PO 1 tab DAILY WONG Administration Metolazone 2.5 mg 10/03/19 08:30 10/04/19 09:11 Zaroxolyn PO 2.5 mg 0830 WONG Administration Mometasone Furoate/Formoterol Fumar 2 puff 10/02/19 18:30 10/04/19 07:03 Dulera 200 Mcg/5 Mcg Inhaler INH 2 puff BID-RT WONG Administration Pantoprazole Sodium 20 mg 10/02/19 09:00 10/04/19 09:11 Protonix PO 20 mg DAILY WONG Administration Janumet Xr 0 each 10/02/19 17:00 10/03/19 16:59 Mg PO 2 each QPM-WM WONG Administration Potassium Chloride 20 meq 10/03/19 09:00 10/04/19 09:11 K-Dur PO 20 meq DAILY WONG Administration Sodium Chloride 10 ml 10/01/19 22:01 10/03/19 14:17 Flush - Normal Saline IVF 10 ml PRN PRN Administration Saline Flush - Exam General - other findings: Obese Eye: anicteric sclera ENT: moist mucosa Heart: RRR, no gallops, no rubs Respiratory: rales Gastrointestinal: soft, non-tender Extremities: 1+ LE edema Psychiatric: normal affect, normal behavior Hosp A/P - Plan #Acute diastolic CHF exacerbation NYHA Class 3 -clinically improved -continue iv furosemide #Acute on chronic hypoxic respiratory failure - POA, improving #Symptomatic anemia -pRBC transfusion, GI consult #Elevated troponin -NSTEMI II secondary to CHF exacerbation. #CAD s/p CABG - stable #Acute on chronic stage 2 renal failure - Monitor creatinine and lytes #COPD - stable #Breast cancer s/p right lumpectomy - stable #DM2 - Switch to aggressive insulin sliding scale and 1800 david diet.
--- NOTE | 2019-10-04 14:37 | PRG ---
DATE OF SERVICE: 10/04/2019 HISTORY OF PRESENT ILLNESS: Ms. Vazquez today feels better overall. Her hemoglobin dropped to 6.3. She did receive 2 units of packed red blood cells. GI has been consulted. Recommendations are currently pending. OBJECTIVE: VITAL SIGNS: Blood pressure 137-56, pulse 71, temperature 96.9. LUNGS: Decreased breath sounds on the left versus right. HEART: Regular rate and rhythm with extra systolic beats. ABDOMEN: Soft, nontender, nondistended. EXTREMITIES: No edema. PERTINENT LABORATORY DATA: Hemoglobin 6.3, up to 8.4 after transfusion. Creatinine 1.34 with a GFR of 38. IMPRESSION: 1. One shortness of breath. 2. Paroxysmal atrial fibrillation. 3. Diastolic dysfunction. 4. Chronic obstructive pulmonary disease. 5. Tobacco abuse. RECOMMENDATIONS: Ms. Vazquez's symptoms are likely multifactorial. She did convert back to sinus. Having paroxysmal atrial fibrillation, may exacerbate her current symptoms from all the above. At this point, I would agree with a GI consultation to assess her anemia. I feel reluctant to proceed with anticoagulation therapy despite having her having paroxysmal atrial fibrillation. I discussed this with Ms. Vazquez. We will add Multaq to her current regime to prevent episodes from recurring. Continue aspirin 325 q.a.m. in addition to carvedilol, Lasix and metolazone. Discontinue metolazone after today's doses and may switch to p.o. Lasix in a.m. Job ID: [id number]
--- NOTE | 2019-10-04 15:39 | CON ---
DATE OF CONSULTATION: 10/04/2019 REQUESTING PHYSICIAN: Dr. Devries. REASON FOR CONSULTATION: Iron deficiency anemia. HISTORY OF PRESENT ILLNESS: Tatiana Vazquez is a very pleasant 79-year-old woman with a history of severe COPD, on home oxygen, as well as coronary artery disease and coronary artery bypass graft in 2012. She has some mild aortic stenosis and diastolic heart failure for which she takes diuretics. She reports having had a history of peptic ulcer disease in the remote past. It would have been over 20 years ago. We have no pertinent records that I can find regarding this. She has never undergone colonoscopy. She presented to the hospital, was admitted three days ago with progressive shortness of breath, had some degree of acute kidney injury, imaging showed a left pleural effusion and she also has new onset atrial fibrillation. Laboratory studies are also remarkable for a new anemia. Last year, hemoglobin was in normal range of 13.6, but on admission here, it is 7.3. This is a normocytic anemia with MCV 79.8, but iron studies are all low with ferritin of only 6.8. The patient has been diuresed over the past few days and is breathing a lot better, feeling a lot better. She has some fatigue which persists. We are consulted for evaluation of the iron deficiency anemia. She is not yet on any anticoagulation due to this issue. Notably, she is not on any special diet. She denies any primary gastrointestinal symptoms such as abdominal pain, nausea, vomiting, significant heartburn, diarrhea, constipation, melena or hematochezia. There has been no abnormal weight loss that she knows of. She denies any overt bleeding from anywhere, including any epistaxis or gross hematuria. She has no known family history Of GI malignancy. She had a large breakfast today. REVIEW OF SYSTEMS: Full review of systems including constitutional, head, eyes, ears, nose, throat, GI, , cardiovascular, respiratory, musculoskeletal, neurologic systems is negative except as noted in the HPI. PAST MEDICAL HISTORY: Coronary artery disease; coronary artery bypass graft 2012; diastolic CHF; mild aortic stenosis; COPD, on home oxygen; tobacco abuse, ongoing, quit just a few weeks ago; hypertension; diabetes; breast cancer, status post lumpectomy; appendectomy; possible remote history of peptic ulcer disease. FAMILY HISTORY: Negative for GI illness or malignancy. SOCIAL HISTORY: The patient has been a long-time smoker but quit about 3 weeks ago. No alcohol use. ALLERGIES: NO KNOWN DRUG ALLERGIES. INPATIENT MEDICATIONS: 1. Tylenol. 2. Albuterol. 3. Amlodipine. 4. Aspirin 325 mg daily. 5. Coreg. 6. Ferrous sulfate 325 mg b.i.d. 7. Lasix 40 mg IV q.12 hours. 8. Sliding scale insulin. 9. Multivitamin with iron. 10. Zaroxolyn. 11. Dulera inhaler. 12. Pantoprazole 20 mg daily. 13. Potassium chloride. 14. Zocor. PHYSICAL EXAMINATION: VITAL SIGNS: Temperature 96.9, blood pressure is 146/64, pulse is 74, 98% oxygen saturation on 2.5 L nasal cannula. GENERAL: Obese 79-year-old woman, sitting up in bed comfortably, in no distress. SKIN: Pale. No jaundice. No rashes were palpable. EYES: No scleral icterus. Extraocular movements intact. ENT: Mucous membranes moist. No oral lesions. LYMPH: No submandibular or supraclavicular lymphadenopathy. Thyroid nontender to palpation. HEART: Irregular rhythm. LUNGS: Some bibasilar crackles. No wheezing. No respiratory distress. ABDOMEN: Bowel sounds are present. Soft, nontender to palpation. EXTREMITIES: No peripheral edema. VESSELS: Radial pulses 2+ bilaterally. NEURO: Cranial nerves 2 through 12 intact bilaterally. No focal deficits. LABORATORY STUDIES: Hemoglobin 6.3, now up to 8.4 after 1 unit RBC transfusion. MCV is a 78.6, WBC 10.7, platelets 277. Ferritin only 6.88, iron only 10, TIBC 391, 3% iron saturation. BUN 43, creatinine 1.34, glucose 221. IMAGING STUDIES: Chest x-ray shows moderate left pleural effusion and cardiomegaly. Echocardiogram shows ejection fraction of 50% to 55% with mild aortic stenosis. ASSESSMENT AND PLAN: 1. Iron-deficiency anemia, symptomatic. 2. Severe chronic obstructive pulmonary disease, on home oxygen. 3. Diastolic heart failure, doing better over the past few days with aggressive diuresis. I had a long discussion with the patient regarding potential reasons for iron deficiency. I doubt inadequate dietary intake or malabsorption. She has no evidence of overt bleeding, but occult GI bleeding lesion should certainly be considered. I do recommend we proceed further with diagnostic EGD and colonoscopy. The patient had a large breakfast today and is not really willing to drink bowel preparation this evening. So, we will plan to have her on clear liquids tomorrow, we will discuss again with her and she will make her final decision on whether she wants to proceed. If so, we will administer bowel preparation tomorrow evening with plan for EGD and colonoscopy the following day. Please call anytime with questions or concerns. Job ID: [id number]
[2019-10-04] MEDS: JANUMET PO SCH (17:40)
[2019-10-04] MEDS: Simvastatin 40 MG TAB PO SCH (20:02)
[2019-10-04] MEDS: Insulin Glargine 4 UNITS in Pre-Filled Syringe 1 EACH SC SCH (20:02)
[2019-10-05 04:52] LABS: Anion Gap 14 mmol/L (10-20); BUN (Urea Nitrogen) 44 mg/dL (9.8-20.1); Calc. Creatinine Clearance 49 mL/min (70-130); Calcium 8.9 mg/dL (7.8-10.44); Carbon Dioxide 36 mmol/L (23-31); Chloride 95 mmol/L (98-107); Estimated GFR-MDRD 39; Glucose 188 mg/dL (83-110); Potassium 3.9 mmol/L (3.5-5.1); Sodium 141 mmol/L (136-145)
[2019-10-05 05:59] LABS: #Eosinphils 0.3 thou/uL (0.0-0.7); #Lymphocytes 1.3 thou/uL (1.20-3.40); #Monocytes 0.7 thou/uL (0.11-0.59); #Neutrophils 7.9 thou/uL (1.40-6.50); %Basophils 0.2 % (0.0-1.0); %Eosinophils 2.5 % (0.0-10.0); %Lymphocytes 12.9 % (21.0-51.0); %Monocytes 7.2 % (0.0-10.0); %Neutrophils 77.3 % (42.0-75.0); Anisocytosis SLIGHT = 6-15 cells (100X) (0-5/hpf); Hemoglobin 7.7 g/dL (12.0-16.0); Hypochromia SLIGHT = 6-15 cells (100X) (0-5/hpf); MDiff Complete? YES; Mean Corpuscular HGB CONC 30.8 g/dL (32.0-36.0); Mean Corpuscular Hemoglobin 24.8 pg (27.0-31.0); Mean Corpuscular Volume 80.6 fL (78.0-98.0); Mean Platelet Volume 9.9 fL (7.4-10.4); Platelet Count 270 thou/uL (130-400); Polychromasia SLIGHT = 2-3 cells (100X) (0-2/hpf); RBC Distribution Width 16.5 % (11.5-14.5); White Blood Cell (WBC) Count 10.3 thou/uL (4.8-10.8)
[2019-10-05] MEDS: Furosemide 40 MG/4 ML VIAL SLOW IVP SCH ×2 (06:04→15:34)
--- NOTE | 2019-10-05 08:41 | PRG ---
DATE OF SERVICE: 10/05/2019 SUBJECTIVE: Ms. Vazquez is feeling fine. No chest pain or shortness of breath this morning. Hemoglobin essentially stable at 7.7. No overt bleeding. She started a clear liquid diet this morning. OBJECTIVE: VITAL SIGNS: Temperature 97.9, pulse 63, blood pressure 132/53, and 97% oxygen saturation on 3 L nasal cannula. GENERAL: No acute distress. HEART: Regular rate and rhythm. LUNGS: Clear to auscultation bilaterally. ABDOMEN: Soft, nontender. EXTREMITIES: No peripheral edema. LABORATORY STUDIES: Hemoglobin 7.7, WBC 10.3, and platelets 270. Sodium 141, potassium 3.9, BUN 44, creatinine 1.33, and glucose 233. ASSESSMENT AND PLAN: 1. Iron deficiency anemia. 2. Atrial fibrillation. 3. Congestive heart failure. 4. Severe chronic obstructive pulmonary disease. The patient is willing to undergo bowel preparation this evening and so we will plan for EGD and colonoscopy tomorrow as investigation of her iron deficiency anemia. Further recommendations tomorrow following endoscopy. Please call anytime with questions or concerns. Job ID: [id number]
--- NOTE | 2019-10-05 08:44 | PRG ---
DATE OF SERVICE: 10/05/2019 SUBJECTIVE: Ms. Vazquez says she is breathing better. She is going to have a colonoscopy and EGD tomorrow. OBJECTIVE: VITAL SIGNS: Temperature 97.9, pulse 63, respirations 21, O2 saturation 97% on 3 L, blood pressure 132/53. HEENT: Clear. NECK: No adenopathy or JVD. LUNGS: Fairly clear. CARDIAC: S1, S2. Regular. ABDOMEN: Soft. EXTREMITIES: Decreased edema. LABORATORY DATA: White blood cell count 10, hematocrit 25.0, and platelet count 270. Sodium 141, potassium 3.9, chloride 95, CO2 of 36, BUN 44, creatinine 1.3, glucose 188. ASSESSMENT: 1. Diastolic heart failure. 2. Severe chronic obstructive pulmonary disease which is probably at baseline. 3. Bilateral pleural effusions, left greater than right secondary to diastolic heart failure. 4. Paroxysmal atrial fibrillation. PLAN: Symptomatically, respiratory status is better after diuresis. At some point in the next 2 or 3 weeks, we will recheck her x-ray and see what progress we made towards resolving her pleural effusions. There is no urgent need to address or intervene with a thoracentesis. Dr. Crane is available design/animation instructor this weekend. Please call if help needed. Job ID: [id number]
[2019-10-05] MEDS: Amlodipine 10 MG TAB PO SCH (09:01)
[2019-10-05] MEDS: Potassium Chloride 20 MEQ TAB PO SCH (09:01)
[2019-10-05] MEDS: Ferrous Sulfate 325 MG TAB PO SCH ×2 (09:01→16:49)
[2019-10-05] MEDS: Aspirin 325 mg Enteric Coated Tablet PO SCH (09:01)
[2019-10-05] MEDS: Multivitamin W/ Minerals 1 TAB PO SCH (09:01)
[2019-10-05] MEDS: Carvedilol 6.25 MG TAB PO SCH ×2 (09:01→20:19)
[2019-10-05] MEDS: Heparin 5,000 UNITS/ML VIAL SC SCH ×3 (09:02→20:19)
[2019-10-05] MEDS: PROVENTIL INHALER 6.7 G (200 INHALATIONS) INH SCH ×2 (10:06→19:26)
[2019-10-05] MEDS: Mometasone/Formoterol 120 PUFF INHALER INH SCH ×2 (10:06→19:24)
[2019-10-05] MEDS: HumaLOG 300 UNITS/3 ML VIAL SC PRN (11:54)
--- NOTE | 2019-10-05 13:24 | PRG ---
DATE OF SERVICE: 10/05/2019 SUBJECTIVE: Ms. Vazquez is feeling better. She has less shortness of breath. She did receive 2 units of packed red blood cells yesterday. OBJECTIVE: VITAL SIGNS: Blood pressure 125/63, pulse 64, and temperature 97.7. LUNGS: Clear to auscultation. HEART: Regular rate and rhythm. ABDOMEN: Soft, nontender, and nondistended. EXTREMITIES: No edema. PERTINENT LABORATORY DATA: Hemoglobin 7.7. Creatinine 1.33. IMPRESSION: 1. Shortness of breath. 2. Chronic obstructive pulmonary disease. 3. Diastolic dysfunction. 4. Recurrent anemia. RECOMMENDATIONS: Symptoms likely multifactorial. She is scheduled for an EGD and colonoscopy tomorrow. At this point, we will continue with conservative treatment. Continue amlodipine and carvedilol. Metolazone had been discontinued. We would recommend changing Lasix to p.o. Otherwise, I have no further recommendations. Plan is to follow up with Ms. Vazquez in the office in 1 to 2 weeks. Please re-consult if needed. Job ID: [id number]
[2019-10-05] MEDS ORDERED: GoLYTELY 4,000 ml Bottle PO SCH (16:00)
[2019-10-05] MEDS: JANUMET PO SCH (16:51)
--- NOTE | 2019-10-05 18:37 | PDOC.HOSPP ---
- Subjective Encounter Date: 10/05/19 Encounter Time: 08:20 Subjective: Pt seen for followup re: CHF. Feels better today. - Objective Vital Signs & Weight: Vital Signs (12 hours) Temp Pulse Pulse Pulse Resp BP BP 10/05/19 15:45 97.2 F L 62 16 10/05/19 14:05 68 65 120/52 L 10/05/19 11:35 97.7 F 64 17 10/05/19 10:06 63 16 10/05/19 09:01 63 123/76 10/05/19 08:00 98.0 F 66 17 BP BP BP Pulse Ox Pulse Ox Pulse Ox 10/05/19 15:45 120/52 L 96 10/05/19 14:05 121/57 L 94 L 95 10/05/19 11:35 125/63 97 10/05/19 10:06 10/05/19 09:01 10/05/19 08:00 144/60 H 100 Weight Weight 196 lb 12.236 oz I&O: 10/04/19 10/05/19 10/06/19 06:59 06:59 06:59 Intake Total 300 1050 1440 Output Total 800 1400 1500 Balance -500 -350 -60 Result Diagrams: 10/05/19 04:05 10/05/19 04:05 Additional Labs: Accuchecks 10/05/19 10/05/19 10/05/19 16:54 10:56 06:12 POC Glucose 110 315 H 233 H 10/04/19 20:04 POC Glucose 186 H Labs and MARs reviewed by me EKG Reviewed by me: Yes (Tele; NSR) Hospitalist ROS - Review of Systems Respiratory: denies: cough, shortness of breath, SOB with excertion, pleuritic pain, wheezing Cardiovascular: denies: chest pain, orthopnea, paroxysmal noc. dyspnea, edema - Medication Medications: Active Medications Generic Name Dose Route Start Last Admin Trade Name Freq PRN Reason Stop Dose Admin Acetaminophen 650 mg 10/02/19 00:44 10/02/19 09:53 Tylenol PO 650 mg Q4H PRN Administration Headache/Fever/Mild Pain (1-3) Albuterol Sulfate 1 puff 10/02/19 18:30 10/05/19 10:06 Proventil Hfa INH 1 puff BID-RT WONG Administration Amlodipine Besylate 10 mg 10/02/19 09:00 10/05/19 09:01 Norvasc PO 10 mg DAILY WONG Administration Aspirin 325 mg 10/02/19 09:00 10/05/19 09:01 Ecotrin PO 325 mg QAM WONG Administration Carvedilol 6.25 mg 10/02/19 01:18 10/05/19 09:01 Coreg PO 6.25 mg BID WONG Administration Ferrous Sulfate 325 mg 10/03/19 08:00 10/05/19 16:49 Feosol PO 325 mg BID-WM WONG Administration Heparin Sodium (Porcine) 5,000 units 10/02/19 09:00 10/05/19 15:34 Heparin SC 5,000 units TID WONG Administration Insulin Glargine 4 units/ 0.04 mls @ 0 mls/hr 10/02/19 21:00 10/04/19 20:02 Miscellaneous Medication SC 0.04 mls HS WONG Administration Insulin Human Lispro 0 units 10/04/19 14:17 10/05/19 11:54 Humalog SC 11 unit .AGGRESSIVE SLIDING PRN Administration Aggressive Correctional Scale Iron/Minerals/Multivitamins 1 tab 10/03/19 09:00 10/05/19 09:01 Theragran M PO 1 tab DAILY WONG Administration Mometasone Furoate/Formoterol Fumar 2 puff 10/02/19 18:30 10/05/19 10:06 Dulera 200 Mcg/5 Mcg Inhaler INH 2 puff BID-RT WONG Administration Pantoprazole Sodium 20 mg 10/02/19 09:00 10/05/19 09:01 Protonix PO 20 mg DAILY WONG Administration Janumet Xr 0 each 10/02/19 17:00 10/05/19 16:51 Mg PO 2 each QPM-WM WONG Administration Polyethylene Glycol/Electrolytes 4,000 ml 10/05/19 16:00 10/05/19 16:49 Golytely PO 10/05/19 23:59 4,000 ml 1600 WONG Administration Potassium Chloride 20 meq 10/03/19 09:00 10/05/19 09:01 K-Dur PO 20 meq DAILY WONG Administration Simvastatin 40 mg 10/04/19 21:00 10/04/19 20:02 Zocor PO 40 mg HS WONG Administration Sodium Chloride 10 ml 10/01/19 22:01 10/03/19 14:17 Flush - Normal Saline IVF 10 ml PRN PRN Administration Saline Flush - Exam General - other findings: Obese Eye: scleral icterus ENT: no oropharyngeal lesions Neck: supple Heart: RRR Respiratory: CTAB Gastrointestinal: soft, non-tender Extremities: 2+ LE edema Psychiatric: normal affect, normal behavior Hosp A/P - Plan #Acute diastolic CHF exacerbation NYHA Class 3 -clinically improved -switch to oral furosemide #Acute on chronic hypoxic respiratory failure - Improved #Symptomatic anemia -Pt for scope studies tomorrow #Elevated troponin -NSTEMI II secondary to CHF exacerbation. #CAD s/p CABG - stable #Acute on chronic stage 2 renal failure - Monitor creatinine and lytes; ACEI on hold #COPD - stable #Breast cancer s/p right lumpectomy - stable #DM2 - Continue aggressive insulin sliding scale and 1800 david diet.
[2019-10-05] MEDS: Simvastatin 40 MG TAB PO SCH (20:19)
[2019-10-05] MEDS: Insulin Glargine 4 UNITS in Pre-Filled Syringe 1 EACH SC SCH (20:19)
[2019-10-06 04:30] LABS: #Eosinphils 0.3 thou/uL (0.0-0.7); #Monocytes 0.7 thou/uL (0.11-0.59); #Neutrophils 7.6 thou/uL (1.40-6.50); %Eosinophils 2.7 % (0.0-10.0); %Lymphocytes 10.8 % (21.0-51.0); %Monocytes 7.6 % (0.0-10.0); %Neutrophils 78.9 % (42.0-75.0); Hemoglobin 7.8 g/dL (12.0-16.0); Mean Corpuscular HGB CONC 31.1 g/dL (32.0-36.0); Mean Corpuscular Volume 80.2 fL (78.0-98.0); Mean Platelet Volume 10.1 fL (7.4-10.4); Platelet Count 269 thou/uL (130-400); RBC Distribution Width 16.8 % (11.5-14.5); Red Blood Cell (RBC) Count 3.13 mill/uL (4.20-5.40); White Blood Cell (WBC) Count 9.6 thou/uL (4.8-10.8)
[2019-10-06 04:52] LABS: BUN (Urea Nitrogen) 34 mg/dL (9.8-20.1); Calc. Creatinine Clearance 57 mL/min (70-130); Calcium 9.1 mg/dL (7.8-10.44); Estimated GFR-MDRD 46; Glucose 149 mg/dL (83-110)
[2019-10-06 05:01] LABS: Anion Gap 19 mmol/L (10-20); Carbon Dioxide 38 mmol/L (23-31); Chloride 89 mmol/L (98-107); Potassium 3.9 mmol/L (3.5-5.1); Sodium 142 mmol/L (136-145)
[2019-10-06] MEDS ORDERED: Ketamine 50 MG/ML (10ML VIAL) ONE (09:05)
[2019-10-06] MEDS ORDERED: Midazolam HCl 2 mg/2 ml Vial ONE (09:19)
[2019-10-06] MEDS ORDERED: PROPOFOL 200 MG/20 ML VIAL ONE (09:37)
[2019-10-06] MEDS ORDERED: Iopamidol 370 76% 50 ML VIAL FS ONE (11:48)
[2019-10-06] MEDS ORDERED: Iopamidol-370 76% 500 ML 1 ML ONE (11:48)
[2019-10-06] MEDS: Mometasone/Formoterol 120 PUFF INHALER INH SCH ×2 (12:09→19:03)
[2019-10-06] MEDS: PROVENTIL INHALER 6.7 G (200 INHALATIONS) INH SCH ×2 (12:09→19:02)
--- NOTE | 2019-10-06 13:09 | PDOC.HOSPP ---
- Subjective Encounter Date: 10/06/19 Encounter Time: 16:00 Subjective: had egd and colonoscopy this am no sob - Objective Vital Signs & Weight: Vital Signs (12 hours) Temp Pulse Resp BP Pulse Ox 10/06/19 07:50 98.5 F 68 18 138/49 L 94 L 10/06/19 07:30 94 L 10/06/19 04:00 98.1 F 75 23 H 131/54 L 94 L Weight Weight 198 lb 3.2 oz I&O: 10/05/19 10/06/19 10/07/19 06:59 06:59 06:59 Intake Total 1050 3240 Output Total 1400 3700 Balance -350 -460 Result Diagrams: 10/07/19 08:42 10/07/19 08:42 Additional Labs: Accuchecks 10/06/19 10/05/19 10/05/19 06:26 21:12 16:54 POC Glucose 160 H 133 H 110 Hospitalist ROS - Medication Medications: Active Medications Generic Name Dose Route Start Last Admin Trade Name Freq PRN Reason Stop Dose Admin Acetaminophen 650 mg 10/02/19 00:44 10/02/19 09:53 Tylenol PO 650 mg Q4H PRN Administration Headache/Fever/Mild Pain (1-3) Albuterol Sulfate 1 puff 10/02/19 18:30 10/06/19 12:09 Proventil Hfa INH Not Given BID-RT WONG Amlodipine Besylate 10 mg 10/02/19 09:00 10/05/19 09:01 Norvasc PO 10 mg DAILY WONG Administration Aspirin 325 mg 10/02/19 09:00 10/05/19 09:01 Ecotrin PO 325 mg QAM WONG Administration Carvedilol 6.25 mg 10/02/19 01:18 10/05/19 20:19 Coreg PO 6.25 mg BID WONG Administration Ferrous Sulfate 325 mg 10/03/19 08:00 10/05/19 16:49 Feosol PO 325 mg BID-WM WONG Administration Heparin Sodium (Porcine) 5,000 units 10/02/19 09:00 10/05/19 20:19 Heparin SC Not Given TID WONG Insulin Glargine 4 units/ 0.04 mls @ 0 mls/hr 10/02/19 21:00 10/05/19 20:19 Miscellaneous Medication SC Not Given HS WONG Insulin Human Lispro 0 units 10/04/19 14:17 10/05/19 11:54 Humalog SC 11 unit .AGGRESSIVE SLIDING PRN Administration Aggressive Correctional Scale Iron/Minerals/Multivitamins 1 tab 10/03/19 09:00 10/05/19 09:01 Theragran M PO 1 tab DAILY WONG Administration Mometasone Furoate/Formoterol Fumar 2 puff 10/02/19 18:30 10/06/19 12:09 Dulera 200 Mcg/5 Mcg Inhaler INH Not Given BID-RT WONG Pantoprazole Sodium 20 mg 10/02/19 09:00 10/05/19 09:01 Protonix PO 20 mg DAILY WONG Administration Janumet Xr 0 each 10/02/19 17:00 10/05/19 16:51 Mg PO 2 each QPM-WM WONG Administration Potassium Chloride 20 meq 10/03/19 09:00 10/05/19 09:01 K-Dur PO 20 meq DAILY WONG Administration Simvastatin 40 mg 10/04/19 21:00 10/05/19 20:19 Zocor PO 40 mg HS WONG Administration Sodium Chloride 10 ml 10/01/19 22:01 10/03/19 14:17 Flush - Normal Saline IVF 10 ml PRN PRN Administration Saline Flush - Exam General Appearance: awake alert Eye: PERRL, anicteric sclera ENT: no oropharyngeal lesions, moist mucosa Neck: supple, no JVD Heart: RRR, no murmur Respiratory: no wheezes, no rales Gastrointestinal: soft, non-distended, normal bowel sounds Extremities: no cyanosis, no edema Neurological: cranial nerve grossly intact, no focal deficits Psychiatric: normal affect, A&O x 3 Hosp A/P (1) Acute blood loss anemia Code(s): D62 - ACUTE POSTHEMORRHAGIC ANEMIA Status: Acute (2) CAD (coronary artery disease) Code(s): I25.10 - ATHSCL HEART DISEASE OF [place] CORONARY ARTERY W/O ANG PCTRS Status: Chronic Qualifiers: Coronary Disease-Associated Artery/Lesion type: bypass graft [place] vs. transplanted heart: [place] heart Associated angina: without angina Qualified Code(s): I25.810 - Atherosclerosis of coronary artery bypass graft(s) without angina pectoris (3) h/o right breast cancer Status: Chronic (4) Iron deficiency anemia Code(s): D50.9 - IRON DEFICIENCY ANEMIA, UNSPECIFIED Status: Chronic (5) Acute respiratory failure Code(s): J96.00 - ACUTE RESPIRATORY FAILURE, UNSP W HYPOXIA OR HYPERCAPNIA Status: Acute Qualifiers: Respiratory failure complication: hypoxia Qualified Code(s): J96.01 - Acute respiratory failure with hypoxia (6) CHF (congestive heart failure) Code(s): I50.9 - HEART FAILURE, UNSPECIFIED Status: Acute (7) COPD (chronic obstructive pulmonary disease) Status: Chronic Qualifiers: COPD type: chronic bronchitis (8) Physical deconditioning Code(s): R53.81 - OTHER [place]AISE Status: Chronic (9) DM type 2 (diabetes mellitus, type 2) Status: Chronic Qualifiers: Diabetes mellitus intermediate frame tender insulin use: without penitentiary use Diabetes mellitus complication status: with unspecified complications (10) Hypertension Code(s): I10 - ESSENTIAL (PRIMARY) HYPERTENSION Status: Chronic Qualifiers: Hypertension type: essential hypertension Qualified Code(s): I10 - Essential (primary) hypertension (11) Tobacco abuse Code(s): Z72.0 - TOBACCO USE Status: Chronic (12) Colonic mass Code(s): K63.89 - OTHER SPECIFIED DISEASES OF INTESTINE Status: Acute - Plan had egd and colonoscopy this am, friable mass in colon at 70cm, biopsies have been taken CT abd and pelvis will give iv ferrlicet 250mg daily for severe iron def anemia continue asp, coreg, lasix bid, lantus, zocor, norvasc echo showed ef of 50% had 1 unit prbc given on 10/04/2019. hemostable
[2019-10-06] MEDS: Ferrous Sulfate 325 MG TAB PO SCH ×2 (13:27→18:26)
[2019-10-06] MEDS: Heparin 5,000 UNITS/ML VIAL SC SCH ×3 (13:27→20:44)
[2019-10-06] MEDS: Furosemide 40 MG TAB PO SCH ×2 (13:27→13:30)
[2019-10-06] MEDS: Multivitamin W/ Minerals 1 TAB PO SCH (13:30)
[2019-10-06] MEDS: Aspirin 325 mg Enteric Coated Tablet PO SCH (13:30)
[2019-10-06] MEDS: Amlodipine 10 MG TAB PO SCH (13:31)
[2019-10-06] MEDS: Carvedilol 6.25 MG TAB PO SCH ×2 (13:31→20:44)
[2019-10-06] MEDS: Potassium Chloride 20 MEQ TAB PO SCH (13:32)
[2019-10-06] MEDS: Iron, Sodium Ferric Gluconate 250 MG in Sodium Chloride 0.9% 100 ML IVPB SCH (13:33)
--- NOTE | 2019-10-06 17:05 | OP ---
DATE OF PROCEDURE: 10/06/2019 [employer] LE[employer] SURGEON: None. PROCEDURES PERFORMED: 1. Esophagogastroduodenoscopy with argon plasma coagulation treatment. 2. Colonoscopy with biopsies and submucosal injection. INDICATIONS: Iron-deficiency anemia. MEDICATIONS: See Anesthesia record. FINDINGS: After discussion of the risks, benefits, and alternatives of the procedure, informed consent was obtained and witnessed. Pre-endoscopic cardiopulmonary examination was satisfactory. Time-out was performed before sedation was achieved. Sedation was achieved with Anesthesia assistance in the endoscopy unit. A Pentax adult upper endoscope was placed into the oropharynx and passed through the cricopharyngeus under direct visualization. The esophageal mucosa appeared normal throughout with a normal-appearing Z-line. There was no evidence of any esophageal varices. The endoscope was advanced into the stomach. Forward and retroflexed views of the entire gastric mucosa were obtained. There was no evidence of any old blood or active bleeding in the stomach. There were no gastric varices noted. 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 One of these AVMs was quite friable and started oozing upon manipulation with the endoscope. I used argon plasma coagulation to treat all 5 of these areas with good hemostasis maintained. The endoscope was passed through the pylorus and into the first and second portions of the duodenum, which appeared normal. The upper endoscope was completely withdrawn and the patient was repositioned. Digital rectal exam was performed, which was unremarkable. A Pentax adult colonoscope was inserted into the anus and passed forward to the cecum in the usual fashion. The cecal base was identified by the appendiceal orifice as well as the ileocecal valve. The terminal ileum was not intubated. The colonoscope was slowly withdrawn in a gradual and circumferential manner with careful examination of the entire colonic mucosa. The quality of the prep was fair, particularly in the right colon. There were a couple of small polyps, measuring no more than 5 mm, in the right colon, which were not snared on today's exam. This is because at about 70 cm, which I estimate to be in the transverse colon, there is a larger, flat, friable mass. It measures about 3 cm in diameter. It involves a couple of folds, and is not endoscopically resectable. I biopsied this lesion and it turned out to be quite vascular. Using 5 mL of SPOT ink, I tattooed the site just proximal and distal to the lesion. The remainder of the colonic mucosa appeared normal. There were a few sigmoid diverticula. There was what appears to be a submucosal lipoma in the sigmoid colon as well. Retroflexion in the rectum demonstrated some internal hemorrhoids. The colonoscope was completely withdrawn and the patient allowed to recover. The patient tolerated the procedure well. There were no immediate postprocedure complications. IMPRESSION: 1. 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 2. Otherwise normal esophagogastroduodenoscopy. 3. Flat, friable mass in the colon at 70 cm, estimated to be in the transverse colon, about 3 cm in diameter, not endoscopically resectable. Biopsied and tattooed proximal and distal to the lesion. 4. Few tiny right colon polyps, not removed on this exam. 5. Fair colon prep. 6. Sigmoid diverticulosis. 7. Internal hemorrhoids. RECOMMENDATION: 1. Follow up biopsy results. 2. CT of the abdomen and pelvis with contrast. 3. Get a CEA level with tomorrow morning's labs. 4. The patient will need surgical referral, either inpatient or outpatient, for resection of the colon mass. 5. I would avoid any anticoagulation for now. 6. Protonix 40 mg twice daily for 2 months, which should facilitate healing of APC treatment sites. Job ID: [id number]
--- NOTE | 2019-10-06 17:56 | CT ---
CT ABDOMEN AND PELVIS: HISTORY: Colon cancer. Staging. COMPARISON: 12/14/2018 PROCEDURE: Multiple contiguous axial images were obtained and a CT of the abdomen and pelvis with IV contrast. C oronal reformats were performed. FINDINGS: Lower Chest: Moderate left-sided pleural effusion with left lower lobe consolidation due to atelectas is, pneumonia or aspiration. Trace right-sided pleural effusion. Vessels: Atherosclerosis of the aorta with calcified and noncalcified plaque. Significant atheroscler otic disease involving the proximal to mid superior mesenteric artery as well as the splenic artery. Heart: Normal heart size. ABDOMEN Portal vein: Patent. Gallbladder: Cholelithiasis, without evidence of cholecystitis. Liver: Within normal limits. Pancreas: Within normal limits. Spleen: Within normal limits. Adrenals: Within normal limits. Kidneys: Symmetric enhancement. No obstructive uropathy. Stable hypodensity in the left renal cortex, measuring 0.7 cm. Incomplete evaluation. Nonobstructing calculus in the left renal cortex. Stable large exophytic cyst emanating from the lower pole the left kidney measuring 3.3 x 3.4 cm. Stable hyp odensity in the right renal cortex measuring 1.0 cm with an attenuation coefficient of 18 Hounsfield units. A slightly complex cyst is favored. No appreciable change in size. Nonobstructing c alcifications in the right renal pelvis. Peritoneum: No ascites or free air, no fluid collection. Bowel: Limited evaluation due to the lack of oral contrast administration. No evidence of bowel obstr uction. Ileocecal junction is unremarkable. Appendix is not appreciated. No obvious inflammation at the cecal apex. There is diverticulosis and bowel wall thickening involving the sigmoid colon. No inf lammatory change. Bowel wall thickening is similar to the previous examination and may represent sequela of remote bouts of diverticulitis. Scattered fecal material in a nondistended, nondilated colon. Mesentery and Retroperitoneum: No enlarged mesenteric or retroperitoneal lymph nodes. Abdominal Wall: Within normal limits. PELVIS Reproductive Organs: Reproductive organs are unremarkable. Pelvis: No mass, lymphadenopathy, free air or free fluid. Bladder: Within normal limits. Bones: Within normal limits. IMPRESSION: 1. Stable renal parenchymal hypodensities. No evidence of obstructive uropathy. 2. Cholelithiasis without evidence of cholecystitis. 3. Right-sided pleural effusion with adjacent consolidation due to atelectasis, pneumonia or aspirati on. 4. Mucosal thickening of the left hemicolon as described above. Transcribed Date/Time: 10/07/2019 8:43 AM
[2019-10-06] MEDS: JANUMET PO SCH (18:26)
[2019-10-06] MEDS: Simvastatin 40 MG TAB PO SCH (20:44)
[2019-10-06] MEDS: Insulin Glargine 4 UNITS in Pre-Filled Syringe 1 EACH SC SCH (20:45)
[2019-10-06] MEDS: HumaLOG 300 UNITS/3 ML VIAL SC PRN (20:46)
[2019-10-07] MEDS: Mometasone/Formoterol 120 PUFF INHALER INH SCH ×2 (07:53→19:01)
[2019-10-07] MEDS: PROVENTIL INHALER 6.7 G (200 INHALATIONS) INH SCH ×2 (07:53→19:00)
[2019-10-07 09:01] LABS: #Eosinphils 0.2 thou/uL (0.0-0.7); #Lymphocytes 0.9 thou/uL (1.20-3.40); #Monocytes 0.8 thou/uL (0.11-0.59); #Neutrophils 9.5 thou/uL (1.40-6.50); %Basophils 0.3 % (0.0-1.0); %Eosinophils 1.7 % (0.0-10.0); Hemoglobin 8.7 g/dL (12.0-16.0); Mean Corpuscular HGB CONC 30.5 g/dL (32.0-36.0); Mean Corpuscular Hemoglobin 25.3 pg (27.0-31.0); Mean Corpuscular Volume 82.8 fL (78.0-98.0); Platelet Count 277 thou/uL (130-400); RBC Distribution Width 17.9 % (11.5-14.5); Red Blood Cell (RBC) Count 3.44 mill/uL (4.20-5.40); White Blood Cell (WBC) Count 11.4 thou/uL (4.8-10.8)
[2019-10-07 09:12] LABS: BUN (Urea Nitrogen) 26 mg/dL (9.8-20.1); Calc. Creatinine Clearance 54 mL/min (70-130); Calcium 9.4 mg/dL (7.8-10.44); Estimated GFR-MDRD 42; Glucose 154 mg/dL (83-110)
[2019-10-07] MEDS: Ferrous Sulfate 325 MG TAB PO SCH ×2 (09:14→16:16)
[2019-10-07] MEDS: Amlodipine 10 MG TAB PO SCH (09:15)
[2019-10-07] MEDS: Aspirin 325 mg Enteric Coated Tablet PO SCH (09:15)
[2019-10-07] MEDS: Carvedilol 6.25 MG TAB PO SCH ×2 (09:15→21:19)
[2019-10-07] MEDS: Heparin 5,000 UNITS/ML VIAL SC SCH ×3 (09:16→21:19)
[2019-10-07] MEDS: Multivitamin W/ Minerals 1 TAB PO SCH (09:16)
[2019-10-07] MEDS: Furosemide 40 MG TAB PO SCH ×2 (09:16→14:56)
[2019-10-07] MEDS: Potassium Chloride 20 MEQ TAB PO SCH (09:17)
[2019-10-07] MEDS: Acetaminophen 325 MG TAB PO PRN ×3 (09:18→22:22)
[2019-10-07] MEDS: Iron, Sodium Ferric Gluconate 250 MG in Sodium Chloride 0.9% 100 ML IVPB SCH (09:19)
[2019-10-07 09:22] LABS: Anion Gap 20 mmol/L (10-20); Carbon Dioxide 32 mmol/L (23-31); Chloride 90 mmol/L (98-107); Potassium 4.1 mmol/L (3.5-5.1); Sodium 138 mmol/L (136-145)
--- NOTE | 2019-10-07 11:24 | PRG ---
DATE OF SERVICE: 10/07/2019 SUBJECTIVE: Ms. Vazquez is feeling pretty well today. There is no shortness of breath or abdominal pain. No nausea or vomiting. She is tolerating her diet. OBJECTIVE: VITAL SIGNS: Temperature 98.7, pulse 65, blood pressure 142/66, and 96% oxygen saturation on 2 L nasal cannula. GENERAL: No acute distress. HEART: Regular rate and rhythm. LUNGS: Clear to auscultation bilaterally. ABDOMEN: Bowel sounds present. Soft, nontender to palpation. EXTREMITIES: No peripheral edema. LABORATORY STUDIES: Hemoglobin up to 8.7, WBC is 11.4, platelets 277. Sodium 138, potassium 4.1, BUN 26, creatinine 1.23, glucose 154, calcium 9.4. CEA level is only 3.54. IMAGING STUDIES: CT of the abdomen and pelvis from yesterday showed some chronic mucosal thickening of the left hemicolon, similar to a prior examination, diverticulosis in the sigmoid colon, no inflammatory change, notably no evidence of ascites or free air or fluid collection or lymphadenopathy, no evidence of any metastatic disease. She does have cholelithiasis. ASSESSMENT AND PLAN: 1. Iron deficiency anemia. 2. Multiple gastric arteriovenous malformations, status post APC treatment yesterday with good hemostasis maintained. The patient will need to continue on pantoprazole 40 mg twice daily for 2 months, which should facilitate healing of the APC treatment sites. 3. Small colon mass at 70 cm, estimated to be in the transverse colon, not endoscopically resectable. We are awaiting biopsy results. I suspect this is either an advanced polyp or early adenocarcinoma. I tattooed the colon proximal and distal to the lesion. The patient is going to need consideration of surgical resection. She is already established with Dr. Betts in the past, so would recommend consultation with Dr. Betts tomorrow. Please call anytime if GI can be of further assistance this hospitalization. Job ID: [id number]
--- NOTE | 2019-10-07 12:04 | PDOC.HOSPP ---
- Subjective Encounter Date: 10/07/19 Encounter Time: 09:45 Subjective: no sob, is sitting in chair no abd pain or nausea - Objective Vital Signs & Weight: Vital Signs (12 hours) Temp Pulse Resp BP BP Pulse Ox 10/07/19 09:15 65 10/07/19 07:57 96 10/07/19 07:54 98.7 F 65 18 142/66 H 96 10/07/19 07:53 71 16 10/07/19 04:00 98.5 F 71 18 146/58 H 97 Weight Weight 199 lb 9.6 oz I&O: 10/06/19 10/07/19 10/08/19 06:59 06:59 06:59 Intake Total 3240 860 Output Total 3700 800 Balance -460 60 Result Diagrams: 10/07/19 08:42 10/07/19 08:42 Additional Labs: Accuchecks 10/07/19 10/07/19 10/06/19 10:22 06:13 23:23 POC Glucose 233 H 153 H 117 H 10/06/19 10/06/19 20:26 16:58 POC Glucose 223 H 186 H Hospitalist ROS - Medication Medications: Active Medications Generic Name Dose Route Start Last Admin Trade Name Freq PRN Reason Stop Dose Admin Acetaminophen 650 mg 10/02/19 00:44 10/07/19 09:18 Tylenol PO 650 mg Q4H PRN Administration Headache/Fever/Mild Pain (1-3) Albuterol Sulfate 1 puff 10/02/19 18:30 10/07/19 07:53 Proventil Hfa INH 1 puff BID-RT WONG Administration Amlodipine Besylate 10 mg 10/02/19 09:00 10/07/19 09:15 Norvasc PO 10 mg DAILY WONG Administration Aspirin 325 mg 10/02/19 09:00 10/07/19 09:15 Ecotrin PO 325 mg QAM WONG Administration Carvedilol 6.25 mg 10/02/19 01:18 10/07/19 09:15 Coreg PO 6.25 mg BID WONG Administration Ferrous Sulfate 325 mg 10/03/19 08:00 10/07/19 09:14 Feosol PO 325 mg BID-WM WONG Administration Furosemide 40 mg 10/06/19 09:00 10/07/19 09:16 Lasix PO 40 mg 0900,1400 WONG Administration Heparin Sodium (Porcine) 5,000 units 10/02/19 09:00 10/07/19 09:16 Heparin SC 5,000 units TID WONG Administration Insulin Glargine 4 units/ 0.04 mls @ 0 mls/hr 10/02/19 21:00 10/06/19 20:45 Miscellaneous Medication SC 0.04 mls HS WONG Administration Ferric Sodium Gluconate 120 mls @ 60 mls/hr 10/06/19 09:00 10/07/19 09:19 Complex 250 mg/ Sodium IVPB 10/09/19 10:59 120 mls Chloride Q24HR WONG Administration Insulin Human Lispro 0 units 10/04/19 14:17 10/06/19 20:46 Humalog SC 6 unit .AGGRESSIVE SLIDING PRN Administration Aggressive Correctional Scale Iron/Minerals/Multivitamins 1 tab 10/03/19 09:00 10/07/19 09:16 Theragran M PO 1 tab DAILY WONG Administration Mometasone Furoate/Formoterol Fumar 2 puff 10/02/19 18:30 10/07/19 07:53 Dulera 200 Mcg/5 Mcg Inhaler INH 2 puff BID-RT WONG Administration Pantoprazole Sodium 40 mg 10/06/19 21:00 10/07/19 09:17 Protonix PO 40 mg BID WONG Administration Janumet Xr 0 each 10/02/19 17:00 10/06/19 18:26 Mg PO 2 each QPM-WM WONG Administration Potassium Chloride 20 meq 10/03/19 09:00 10/07/19 09:17 K-Dur PO 20 meq DAILY WONG Administration Simvastatin 40 mg 10/04/19 21:00 10/06/19 20:44 Zocor PO 40 mg HS WONG Administration Sodium Chloride 10 ml 10/01/19 22:01 10/03/19 14:17 Flush - Normal Saline IVF 10 ml PRN PRN Administration Saline Flush - Exam General Appearance: awake alert Eye: PERRL, anicteric sclera ENT: no oropharyngeal lesions, moist mucosa Neck: supple, no JVD Heart: RRR, no murmur Respiratory: no wheezes, no rales Gastrointestinal: soft, non-tender, non-distended, normal bowel sounds Extremities: no cyanosis, no edema Neurological: cranial nerve grossly intact, no focal deficits Psychiatric: normal affect, A&O x 3 Hosp A/P (1) Colonic mass Code(s): K63.89 - OTHER SPECIFIED DISEASES OF INTESTINE Status: Acute (2) Acute blood loss anemia Code(s): D62 - ACUTE POSTHEMORRHAGIC ANEMIA Status: Acute (3) CAD (coronary artery disease) Code(s): I25.10 - ATHSCL HEART DISEASE OF [place] CORONARY ARTERY W/O ANG PCTRS Status: Chronic Qualifiers: Coronary Disease-Associated Artery/Lesion type: bypass graft [place] vs. transplanted heart: [place] heart Associated angina: without angina Qualified Code(s): I25.810 - Atherosclerosis of coronary artery bypass graft(s) without angina pectoris (4) h/o right breast cancer Status: Chronic (5) Iron deficiency anemia Code(s): D50.9 - IRON DEFICIENCY ANEMIA, UNSPECIFIED Status: Chronic (6) Acute respiratory failure Code(s): J96.00 - ACUTE RESPIRATORY FAILURE, UNSP W HYPOXIA OR HYPERCAPNIA Status: Acute Qualifiers: Respiratory failure complication: hypoxia Qualified Code(s): J96.01 - Acute respiratory failure with hypoxia (7) CHF (congestive heart failure) Code(s): I50.9 - HEART FAILURE, UNSPECIFIED Status: Acute (8) COPD (chronic obstructive pulmonary disease) Status: Chronic Qualifiers: COPD type: chronic bronchitis (9) Physical deconditioning Code(s): R53.81 - OTHER [place] Status: Chronic (10) DM type 2 (diabetes mellitus, type 2) Status: Chronic Qualifiers: Diabetes mellitus fdc insulin use: without long term care pharmacist use Diabetes mellitus complication status: with unspecified complications (11) Hypertension Code(s): I10 - ESSENTIAL (PRIMARY) HYPERTENSION Status: Chronic Qualifiers: Hypertension type: essential hypertension Qualified Code(s): I10 - Essential (primary) hypertension (12) Tobacco abuse Code(s): Z72.0 - TOBACCO USE Status: Chronic - Plan had egd and colonoscopy this am, friable mass in colon at 70cm, biopsies have been taken CT abd and pelvis shows no signs of mets. will need cardiac clearance for likely hemicolectomy. will give iv ferrlicet 250mg daily for severe iron def anemia continue asp, coreg, lasix bid, lantus, zocor, norvasc echo showed ef of 50% had 1 unit prbc given on 10/04/2019. hemostable
[2019-10-07] MEDS: JANUMET PO SCH (16:16)
[2019-10-07] MEDS: HumaLOG 300 UNITS/3 ML VIAL SC PRN (17:54)
[2019-10-07 18:06] LABS: Troponin I 0.093 ng/mL (< 0.028)
[2019-10-07] MEDS: Simvastatin 40 MG TAB PO SCH (21:19)
[2019-10-07] MEDS: Insulin Glargine 4 UNITS in Pre-Filled Syringe 1 EACH SC SCH (21:21)
[2019-10-07 21:47] LABS: Troponin I 0.073 ng/mL (< 0.028)
[2019-10-08 04:35] LABS: Anion Gap 15 mmol/L (10-20); BUN (Urea Nitrogen) 31 mg/dL (9.8-20.1); Calc. Creatinine Clearance 41 mL/min (70-130); Calcium 9.3 mg/dL (7.8-10.44); Carbon Dioxide 37 mmol/L (23-31); Chloride 93 mmol/L (98-107); Estimated GFR-MDRD 31; Glucose 188 mg/dL (83-110); Potassium 3.8 mmol/L (3.5-5.1); Sodium 141 mmol/L (136-145)
[2019-10-08 05:36] LABS: #Basophils 0.1 thou/uL (0.0-0.2); #Eosinphils 0.3 thou/uL (0.0-0.7); #Lymphocytes 1.2 thou/uL (1.20-3.40); #Neutrophils 8.6 thou/uL (1.40-6.50); %Basophils 0.7 % (0.0-1.0); %Eosinophils 3.1 % (0.0-10.0); %Lymphocytes 10.5 % (21.0-51.0); %Monocytes 8.6 % (0.0-10.0); %Neutrophils 77.1 % (42.0-75.0); Hemoglobin 7.8 g/dL (12.0-16.0); Mean Corpuscular HGB CONC 31.2 g/dL (32.0-36.0); Mean Corpuscular Hemoglobin 25.5 pg (27.0-31.0); Mean Corpuscular Volume 81.7 fL (78.0-98.0); Mean Platelet Volume 10.3 fL (7.4-10.4); Platelet Count 263 thou/uL (130-400); RBC Distribution Width 17.5 % (11.5-14.5); Red Blood Cell (RBC) Count 3.04 mill/uL (4.20-5.40); White Blood Cell (WBC) Count 11.2 thou/uL (4.8-10.8)
[2019-10-08] MEDS: PROVENTIL INHALER 6.7 G (200 INHALATIONS) INH SCH ×2 (07:58→18:57)
[2019-10-08] MEDS: Mometasone/Formoterol 120 PUFF INHALER INH SCH ×2 (07:59→18:57)
[2019-10-08] MEDS: Sodium Chloride 0.45% 1,000 ML IV SCH ×2 (08:44→21:06)
[2019-10-08] MEDS: Ferrous Sulfate 325 MG TAB PO SCH ×2 (08:45→17:03)
[2019-10-08] MEDS: Heparin 5,000 UNITS/ML VIAL SC SCH ×3 (08:45→21:05)
[2019-10-08] MEDS: Aspirin 325 mg Enteric Coated Tablet PO SCH (08:45)
[2019-10-08] MEDS: Iron, Sodium Ferric Gluconate 250 MG in Sodium Chloride 0.9% 100 ML IVPB SCH (08:45)
[2019-10-08] MEDS: Potassium Chloride 20 MEQ TAB PO SCH (08:46)
[2019-10-08] MEDS: Multivitamin W/ Minerals 1 TAB PO SCH (08:46)
[2019-10-08] MEDS ORDERED: Regadenoson 0.4 MG/5 ML SYRINGE ONE (09:03)
--- NOTE | 2019-10-08 11:30 | PRG ---
DATE OF SERVICE: 10/08/2019 SUBJECTIVE: The patient is doing reasonably well. She is anticipating a stress test later today. She is going to need partial colectomy for a large polyp found in the colon. She says she is breathing better, has no complaints about that. OBJECTIVE: VITAL SIGNS: Temperature is 98.7, pulse 73, respirations 16, O2 saturation 96% on 2 L, and blood pressure 130/64. HEENT: Unremarkable. NECK: No adenopathy or JVD. LUNGS: Slight diminished breath sounds at the left base compared to right. CARDIAC: S1, S2 regular. ABDOMEN: Soft. EXTREMITIES: No edema. LABORATORY DATA: White blood cell count 11.2, hematocrit 24.9, platelet count 263. Sodium 141, potassium 3.8, chloride 93, CO2 of 37, BUN 31, creatinine 1.6, glucose 188. ASSESSMENT: 1. Improved left pleural effusion. 2. Congestive heart failure. 3. Colon polyp. 4. Underlying severe chronic obstructive pulmonary disease. PLAN: 1. Continue diuresis as needed. 2. I would be very hesitant to give her much in the way of IV fluids. 3. She is at high risk for pulmonary complications from surgery. We will follow. Job ID: [id number]
--- NOTE | 2019-10-08 12:05 | PDOC.GSPN ---
Surgery Progress Note: Subj - Subjective Narrative: Ms. Vazquez is a 79 F with a history of COPD, CAD, and prior CABG who presented to the hospital with shortness of breath. GI was consulted for evaluation of anemia. Colonoscopy was done and a colonic mass was found, and surgery is now being consulted. Patient reports feeling tired today but denies shortness of breath on oxygen. She denies difficulty eating, abdominal pain or changes in bowel habits. She notes that she usually has a BM every other day and that this is normal for her. She denies constipation, diarrhea, blood in stool. Surgery Progress Note: Obj - Vital signs Vital signs: Vital Signs - Most Recent Temp Pulse Resp BP Pulse Ox 98.7 F 73 16 132/64 96 10/08/19 07:54 10/08/19 07:59 10/08/19 07:59 10/08/19 07:54 10/08/19 07:54 - Physical Exam General: no distress Cardiovascular: regular rate and rhythm Respiratory: clear to auscultation Abdomen: soft, non tender, nondistended, positive bowel sounds Surgery Progress Note: Results - Labs Result Diagrams: 10/08/19 03:53 10/10/19 04:20 Lab results: Laboratory Results - last 24 hr 10/08/19 10/08/19 10/08/19 03:53 03:53 05:30 WBC 11.2 H RBC 3.04 L Hgb 7.8 L Hct 24.9 L MCV 81.7 MCH 25.5 L MCHC 31.2 L RDW 17.5 H Plt Count 263 MPV 10.3 Neutrophils % 77.1 H Lymphocytes % 10.5 L Monocytes % 8.6 Eosinophils % 3.1 Basophils % 0.7 Neutrophils # 8.6 H Lymphocytes # 1.2 Monocytes # 1.0 H Eosinophils # 0.3 Basophils # 0.1 Sodium 141 Potassium 3.8 Chloride 93 L Carbon Dioxide 37 H Anion Gap 15 BUN 31 H Creatinine 1.61 H Estimated GFR (MDRD) 31 Glucose 188 H POC Glucose 198 H Calcium 9.3 Surgery Progress Note: A/P - Problem (1) Colonic mass Code(s): K63.89 - OTHER SPECIFIED DISEASES OF INTESTINE Status: Acute - Plan Plan: Ms. Vazquez is a 79 F who is being seen by surgery for consultation of colonic mass found on colonoscopy. -Risks, benefits, and alternatives to surgical procedures will be discussed. Biopsy from colonoscopy is pending. Addendum - Physician - Physician Attestation Date/Time: 10/15/19 1828 I personally performed or re-performed the physical examination and medical decision making. I have verified all student documentation or findings, including history, physical exam and/or medical decision making.
--- NOTE | 2019-10-08 12:56 | PDOC.HOSPP ---
- Subjective Encounter Date: 10/08/19 Encounter Time: 10:35 Subjective: is npo for stress test no abd pain or sob - Objective Vital Signs & Weight: Vital Signs (12 hours) Temp Pulse Resp BP BP Pulse Ox 10/08/19 07:59 73 16 10/08/19 07:58 73 16 10/08/19 07:54 98.7 F 65 16 132/64 96 10/08/19 03:29 98.6 F 73 18 142/62 H 95 Weight Weight 202 lb 1.6 oz I&O: 10/07/19 10/08/19 10/09/19 06:59 06:59 06:59 Intake Total 860 840 Output Total 800 700 Balance 60 140 Result Diagrams: 10/08/19 03:53 10/08/19 03:53 Additional Labs: Accuchecks 10/08/19 10/07/19 10/07/19 05:30 20:12 17:06 POC Glucose 198 H 126 H 249 H Hospitalist ROS - Medication Medications: Active Medications Generic Name Dose Route Start Last Admin Trade Name Freq PRN Reason Stop Dose Admin Acetaminophen 650 mg 10/02/19 00:44 10/07/19 22:22 Tylenol PO 650 mg Q4H PRN Administration Headache/Fever/Mild Pain (1-3) Albuterol Sulfate 1 puff 10/02/19 18:30 10/08/19 07:58 Proventil Hfa INH 1 puff BID-RT WONG Administration Amlodipine Besylate 10 mg 10/02/19 09:00 10/07/19 09:15 Norvasc PO 10 mg DAILY WONG Administration Aspirin 325 mg 10/02/19 09:00 10/08/19 08:45 Ecotrin PO 325 mg QAM WONG Administration Carvedilol 6.25 mg 10/02/19 01:18 10/07/19 21:19 Coreg PO 6.25 mg BID WONG Administration Ferrous Sulfate 325 mg 10/03/19 08:00 10/08/19 08:45 Feosol PO 325 mg BID-WM WONG Administration Heparin Sodium (Porcine) 5,000 units 10/02/19 09:00 10/08/19 08:45 Heparin SC 5,000 units TID WONG Administration Insulin Glargine 4 units/ 0.04 mls @ 0 mls/hr 10/02/19 21:00 10/07/19 21:21 Miscellaneous Medication SC Not Given HS WONG Ferric Sodium Gluconate 120 mls @ 60 mls/hr 10/06/19 09:00 10/08/19 08:45 Complex 250 mg/ Sodium IVPB 10/09/19 10:59 120 mls Chloride Q24HR WONG Administration Sodium Chloride 1,000 mls @ 75 mls/hr 10/08/19 06:45 10/08/19 08:44 1/2 Normal Saline IV 1,000 mls .[id number] WONG Administration Insulin Human Lispro 0 units 10/04/19 14:17 10/07/19 17:54 Humalog SC 6 unit .AGGRESSIVE SLIDING PRN Administration Aggressive Correctional Scale Iron/Minerals/Multivitamins 1 tab 10/03/19 09:00 10/08/19 08:46 Theragran M PO 1 tab DAILY WONG Administration Mometasone Furoate/Formoterol Fumar 2 puff 10/02/19 18:30 10/08/19 07:59 Dulera 200 Mcg/5 Mcg Inhaler INH 2 puff BID-RT OWNG Administration Pantoprazole Sodium 40 mg 10/06/19 21:00 10/08/19 08:45 Protonix PO 40 mg BID WONG Administration Janumet Xr 0 each 10/02/19 17:00 10/07/19 16:16 Mg PO 2 each QPM-WM WONG Administration Potassium Chloride 20 meq 10/03/19 09:00 10/08/19 08:46 K-Dur PO 20 meq DAILY WONG Administration Simvastatin 40 mg 10/04/19 21:00 10/07/19 21:19 Zocor PO 40 mg HS WONG Administration Sodium Chloride 10 ml 10/01/19 22:01 10/03/19 14:17 Flush - Normal Saline IVF 10 ml PRN PRN Administration Saline Flush - Exam General Appearance: awake alert Eye: PERRL, anicteric sclera ENT: no oropharyngeal lesions, moist mucosa Neck: supple, no JVD Heart: RRR, no murmur Respiratory: no wheezes, no rales, rhonchi Gastrointestinal: soft, non-tender, non-distended, normal bowel sounds Extremities: no cyanosis, no edema Neurological: cranial nerve grossly intact, no focal deficits Psychiatric: normal affect, A&O x 3 Hosp A/P (1) Colonic mass Code(s): K63.89 - OTHER SPECIFIED DISEASES OF INTESTINE Status: Acute (2) Acute blood loss anemia Code(s): D62 - ACUTE POSTHEMORRHAGIC ANEMIA Status: Acute (3) CAD (coronary artery disease) Code(s): I25.10 - ATHSCL HEART DISEASE OF [place] CORONARY ARTERY W/O ANG PCTRS Status: Chronic Qualifiers: Coronary Disease-Associated Artery/Lesion type: bypass graft [place] vs. transplanted heart: [place] heart Associated angina: without angina Qualified Code(s): I25.810 - Atherosclerosis of coronary artery bypass graft(s) without angina pectoris (4) h/o right breast cancer Status: Chronic (5) Iron deficiency anemia Code(s): D50.9 - IRON DEFICIENCY ANEMIA, UNSPECIFIED Status: Chronic (6) Acute respiratory failure Code(s): J96.00 - ACUTE RESPIRATORY FAILURE, UNSP W HYPOXIA OR HYPERCAPNIA Status: Acute Qualifiers: Respiratory failure complication: hypoxia Qualified Code(s): J96.01 - Acute respiratory failure with hypoxia (7) CHF (congestive heart failure) Code(s): I50.9 - HEART FAILURE, UNSPECIFIED Status: Acute (8) COPD (chronic obstructive pulmonary disease) Status: Chronic Qualifiers: COPD type: chronic bronchitis (9) Physical deconditioning Code(s): R53.81 - OTHER MALAISE Status: Chronic (10) DM type 2 (diabetes mellitus, type 2) Status: Chronic Qualifiers: Diabetes mellitus senior care insulin use: without senior care use Diabetes mellitus complication status: with unspecified complications (11) Hypertension Code(s): I10 - ESSENTIAL (PRIMARY) HYPERTENSION Status: Chronic Qualifiers: Hypertension type: essential hypertension Qualified Code(s): I10 - Essential (primary) hypertension (12) Tobacco abuse Code(s): Z72.0 - TOBACCO USE Status: Chronic - Plan had egd and colonoscopy on 10/06/2019, friable mass in colon at 70cm, biopsy results pending. CT abd and pelvis showed no signs of mets. will need cardiac clearance for likely hemicolectomy, stress test. has gotten iv ferrlicet 250mg daily for severe iron def anemia, dc after am dose. continue asp, coreg, lasix bid, lantus, zocor, norvasc echo showed ef of 50% had 1 unit prbc given on 10/04/2019. Has underlying copd which is severe per . Patient needs to get optimised for surgery, does not want to go to rehab, ? outpt rehab and her sister might drive her daily. hemostable
[2019-10-08] MEDS: Carvedilol 6.25 MG TAB PO SCH ×2 (14:18→21:05)
[2019-10-08] MEDS: Amlodipine 10 MG TAB PO SCH (14:18)
[2019-10-08] MEDS: HumaLOG 300 UNITS/3 ML VIAL SC PRN (17:03)
[2019-10-08] MEDS: JANUMET PO SCH (17:03)
--- NOTE | 2019-10-08 20:10 | CON ---
DATE OF CONSULTATION: 10/08/2019 CHIEF COMPLAINT: Colon mass. HISTORY OF PRESENT ILLNESS: This is a 79-year-old female with a history of COPD, coronary artery disease, who presents with a history of anemia, iron deficient. She was admitted and underwent upper and lower endoscopy showing some diffuse telangiectasias, but she also had a mass at 70 cm in her transverse colon. This was biopsied, those biopsies are pending. It is not an obstructing mass. I have been consulted for surgical opinion. Mrs. Vazquez states that she lives alone, but she hardly ever gets out of the house. She is able to move around her small living quarters, but does not venture far out. She gets too short of breath secondary to her chronic COPD. She has already started stress test today that was ordered by Dr. Cohen. Her primary commercial fisherman is Dr. Gee. She simply denies any melena, hematochezia, abdominal pain. PAST MEDICAL HISTORY: Includes CAD, COPD. PAST SURGICAL HISTORY: Includes right breast lumpectomy, CABG, appendectomy. SOCIAL HISTORY: Former smoker, quit just recently. No alcohol or other drugs. REVIEW OF SYSTEMS: Ten-system review of systems is otherwise negative unless described above. FAMILY HISTORY: Noncontributory to GI malignancy or anesthetic related complication. PHYSICAL EXAMINATION: VITAL SIGNS: Blood pressure 137/77, pulse 80, she is afebrile, she is on 98% on 3 L nasal cannula. CHEST: Coarse breath sounds bilateral. HEART: Regular rate. ABDOMEN: Soft, nontender, nondistended. EXTREMITIES: No ischemia or edema to extremities. LABORATORY DATA: Today her hemoglobin is 7.8, platelet count is 263. Creatinine is 1.61. IMAGING: Her CT scan of the abdomen and pelvis reveals mucosal thickening in the left hemicolon, but no obvious metastatic disease. ASSESSMENT: 1. Colon mass and history of severe iron deficiency anemia. 2. Chronic obstructive pulmonary disease. 3. Coronary artery disease. PLAN: We will have to wait for the results of her cardiac workup and determine, if she is going to be able to obtain clearance. Certainly would be high risk for any surgical procedure given her underlying COPD and CAD. The location of her tumor would be very difficult to approach laparoscopic oftentimes requires an open operation. She would certainly need rehab [facility] postprocedure. We will continue to follow. Job ID: [id number]
[2019-10-08] MEDS: Simvastatin 40 MG TAB PO SCH (21:05)
[2019-10-08] MEDS: Insulin Glargine 4 UNITS in Pre-Filled Syringe 1 EACH SC SCH (21:05)
[2019-10-09] MEDS: Mometasone/Formoterol 120 PUFF INHALER INH SCH ×2 (08:00→18:24)
[2019-10-09] MEDS: PROVENTIL INHALER 6.7 G (200 INHALATIONS) INH SCH ×2 (08:00→18:23)
--- NOTE | 2019-10-09 10:38 | NM ---
NUCLEAR MEDICINE CARDIAC SPECT WITH EF AND WALL MOTION: HISTORY: History of coronary artery disease, status post coronary artery bypass graft, congestive heart failur e, COPD. TECHNIQUE: This is a LexiScan sestamibi study. The patient was injected with 27.7 mCi Technetium 99msestamibi intravenously for stress images and th e patient was injected with 33.0 mCi Technetium 99m sestamibi intravenously for resting images. FINDINGS: There is some focal abnormal decreased activity on stress images in the anterior septal apex region w ith some associated reversibility, evidence for some focal ischemia. There is also a small focus of minimal decreased activity on stress images in the posterolateral wall with some reversibility, evide nce for a 2nd small focus of ischemia. TID 0.98, LHR 0.30. EDV 132 mL. Ejection fraction 50%. MYOCARDIAL PERFUSION WALL MOTION: Wall motion appears to be within normal limits. IMPRESSION: Evidence for small areas of ischemia involving the anterior septal region of primarily the apex as we ll as some evidence for focal ischemic changes in the posterolateral aspect. EDV elevated at 132 mL. Other findings as above. CODE T POS: ALEK
[2019-10-09] MEDS: Ferrous Sulfate 325 MG TAB PO SCH ×2 (11:38→18:11)
[2019-10-09] MEDS: Carvedilol 6.25 MG TAB PO SCH ×2 (11:38→21:13)
[2019-10-09] MEDS: Potassium Chloride 20 MEQ TAB PO SCH (11:39)
[2019-10-09] MEDS: Aspirin 325 mg Enteric Coated Tablet PO SCH (11:39)
[2019-10-09] MEDS: Amlodipine 10 MG TAB PO SCH (11:39)
[2019-10-09] MEDS: Multivitamin W/ Minerals 1 TAB PO SCH (11:39)
[2019-10-09] MEDS: Heparin 5,000 UNITS/ML VIAL SC SCH ×3 (11:40→21:13)
[2019-10-09] MEDS: Sodium Chloride 0.45% 1,000 ML IV SCH (11:40)
[2019-10-09] MEDS ORDERED: Iron, Sodium Ferric Gluconate 250 MG in Sodium Chloride 0.9% 100 ML IVPB SCH (12:00)
--- NOTE | 2019-10-09 12:13 | PDOC.HOSPP ---
- Subjective Encounter Date: 10/09/19 Encounter Time: 09:45 Subjective: no chest pain or sob - Objective Vital Signs & Weight: Vital Signs (12 hours) Temp Pulse Resp BP BP Pulse Ox 10/09/19 11:39 68 10/09/19 07:48 92 L 10/09/19 07:46 98.7 F 68 18 161/67 H 92 L 10/09/19 04:24 98.7 F 69 18 153/67 H 98 Weight Weight 201 lb 12.8 oz I&O: 10/08/19 10/09/19 10/10/19 06:59 06:59 06:59 Intake Total 840 Output Total 700 Balance 140 Result Diagrams: 10/08/19 03:53 10/08/19 03:53 Additional Labs: Accuchecks 10/09/19 10/09/19 10/08/19 10:45 05:35 20:49 POC Glucose 167 H 163 H 179 H 10/08/19 10/08/19 16:27 10:38 POC Glucose 201 H 171 H Hospitalist ROS - Medication Medications: Active Medications Generic Name Dose Route Start Last Admin Trade Name Freq PRN Reason Stop Dose Admin Acetaminophen 650 mg 10/02/19 00:44 10/07/19 22:22 Tylenol PO 650 mg Q4H PRN Administration Headache/Fever/Mild Pain (1-3) Albuterol Sulfate 1 puff 10/02/19 18:30 10/09/19 08:00 Proventil Hfa INH 1 puff BID-RT WONG Administration Amlodipine Besylate 10 mg 10/02/19 09:00 10/09/19 11:39 Norvasc PO 10 mg DAILY WONG Administration Aspirin 325 mg 10/02/19 09:00 10/09/19 11:39 Ecotrin PO 325 mg QAM WONG Administration Carvedilol 6.25 mg 10/02/19 01:18 10/09/19 11:38 Coreg PO 6.25 mg BID WONG Administration Ferrous Sulfate 325 mg 10/03/19 08:00 10/09/19 11:38 Feosol PO 325 mg BID-WM WONG Administration Heparin Sodium (Porcine) 5,000 units 10/02/19 09:00 10/09/19 11:40 Heparin SC Not Given TID [facility] Insulin Glargine 4 units/ 0.04 mls @ 0 mls/hr 10/02/19 21:00 10/08/19 21:05 Miscellaneous Medication SC 0.04 mls HS WONG Administration Sodium Chloride 1,000 mls @ 75 mls/hr 10/08/19 06:45 10/09/19 11:40 1/2 Normal Saline IV Not Given .[id number] WONG Insulin Human Lispro 0 units 10/04/19 14:17 10/08/19 17:03 Humalog SC 6 unit .AGGRESSIVE SLIDING PRN Administration Aggressive Correctional Scale Iron/Minerals/Multivitamins 1 tab 10/03/19 09:00 10/09/19 11:39 Theragran M PO 1 tab DAILY WONG Administration Mometasone Furoate/Formoterol Fumar 2 puff 10/02/19 18:30 10/09/19 08:00 Dulera 200 Mcg/5 Mcg Inhaler INH 2 puff BID-RT WONG Administration Pantoprazole Sodium 40 mg 10/06/19 21:00 10/09/19 11:39 Protonix PO 40 mg BID WONG Administration Janumet Xr 0 each 10/02/19 17:00 10/08/19 17:03 Mg PO 2 each QPM-WM WONG Administration Potassium Chloride 20 meq 10/03/19 09:00 10/09/19 11:39 K-Dur PO 20 meq DAILY WONG Administration Simvastatin 40 mg 10/04/19 21:00 10/08/19 21:05 Zocor PO 40 mg HS WONG Administration Sodium Chloride 10 ml 10/01/19 22:01 10/03/19 14:17 Flush - Normal Saline IVF 10 ml PRN PRN Administration Saline Flush - Exam General Appearance: awake alert Eye: PERRL, anicteric sclera ENT: no oropharyngeal lesions, moist mucosa Neck: supple, no JVD Heart: RRR, no murmur Respiratory: no wheezes, no rales, rhonchi Gastrointestinal: soft, non-tender, non-distended, normal bowel sounds Extremities: no cyanosis, no edema Neurological: cranial nerve grossly intact, no focal deficits Psychiatric: normal affect, A&O x 3 Hosp A/P (1) Colonic mass Code(s): K63.89 - OTHER SPECIFIED DISEASES OF INTESTINE Status: Acute (2) Acute blood loss anemia Code(s): D62 - ACUTE POSTHEMORRHAGIC ANEMIA Status: Acute (3) CAD (coronary artery disease) Code(s): I25.10 - ATHSCL HEART DISEASE OF [place] CORONARY ARTERY W/O ANG PCTRS Status: Chronic Qualifiers: Coronary Disease-Associated Artery/Lesion type: bypass graft [place] vs. transplanted heart: [place] heart Associated angina: without angina Qualified Code(s): I25.810 - Atherosclerosis of coronary artery bypass graft(s) without angina pectoris (4) h/o right breast cancer Status: Chronic (5) Iron deficiency anemia Code(s): D50.9 - IRON DEFICIENCY ANEMIA, UNSPECIFIED Status: Chronic (6) Acute respiratory failure Code(s): J96.00 - ACUTE RESPIRATORY FAILURE, UNSP W HYPOXIA OR HYPERCAPNIA Status: Resolved Qualifiers: Respiratory failure complication: hypoxia Qualified Code(s): J96.01 - Acute respiratory failure with hypoxia (7) CHF (congestive heart failure) Code(s): I50.9 - HEART FAILURE, UNSPECIFIED Status: Acute (8) COPD (chronic obstructive pulmonary disease) Status: Chronic Qualifiers: COPD type: chronic bronchitis (9) Physical deconditioning Code(s): R53.81 - OTHER MALAISE Status: Chronic (10) DM type 2 (diabetes mellitus, type 2) Status: Chronic Qualifiers: Diabetes mellitus superintendent [employer] insulin use: without senior care use Diabetes mellitus complication status: with unspecified complications (11) Hypertension Code(s): I10 - ESSENTIAL (PRIMARY) HYPERTENSION Status: Chronic Qualifiers: Hypertension type: essential hypertension Qualified Code(s): I10 - Essential (primary) hypertension (12) Tobacco abuse Code(s): Z72.0 - TOBACCO USE Status: Chronic - Plan had egd and colonoscopy on 10/06/2019, friable mass in colon at 70cm, biopsy shows tubulovillous adenoma. CT abd and pelvis showed no signs of mets. will need cardiac clearance for likely hemicolectomy, stress test is +ve, await opinion. has gotten iv ferrlicet 250mg daily for severe iron def anemia, dc after am dose. continue asp, coreg, lasix bid, lantus, zocor, norvasc echo showed ef of 50% had 1 unit prbc given on 10/04/2019. Has underlying copd which is severe per . Patient needs to get optimised for surgery, does not want to go to rehab, ? outpt rehab and her sister might drive her daily. hemostable
[2019-10-09] MEDS: Iron, Sodium Ferric Gluconate 250 MG in Sodium Chloride 0.9% 100 ML IVPB SCH (12:32)
[2019-10-09 13:02] LABS: Anion Gap 14 mmol/L (10-20); BUN (Urea Nitrogen) 20 mg/dL (9.8-20.1); Calc. Creatinine Clearance 61 mL/min (70-130); Calcium 9.2 mg/dL (7.8-10.44); Carbon Dioxide 32 mmol/L (23-31); Chloride 97 mmol/L (98-107); Estimated GFR-MDRD 49; Glucose 161 mg/dL (83-110); Potassium 4.5 mmol/L (3.5-5.1); Sodium 138 mmol/L (136-145)
[2019-10-09] MEDS: JANUMET PO SCH (18:12)
[2019-10-09] MEDS: Insulin Glargine 4 UNITS in Pre-Filled Syringe 1 EACH SC SCH (21:12)
[2019-10-09] MEDS: Simvastatin 40 MG TAB PO SCH (21:13)
[2019-10-10 00:01] LABS: Anion Gap 13 mmol/L (10-20); BUN (Urea Nitrogen) 20 mg/dL (9.8-20.1); Calc. Creatinine Clearance 55 mL/min (70-130); Calcium 9.3 mg/dL (7.8-10.44); Carbon Dioxide 35 mmol/L (23-31); Chloride 97 mmol/L (98-107); Estimated GFR-MDRD 43; Glucose 174 mg/dL (83-110); Potassium 4.4 mmol/L (3.5-5.1); Sodium 141 mmol/L (136-145)
[2019-10-10] MEDS: Sodium Chloride 0.45% 1,000 ML IV SCH ×2 (05:04→15:45)
[2019-10-10 05:30] LABS: Anion Gap 12 mmol/L (10-20); BUN (Urea Nitrogen) 20 mg/dL (9.8-20.1); Calc. Creatinine Clearance 63 mL/min (70-130); Calcium 9.3 mg/dL (7.8-10.44); Carbon Dioxide 34 mmol/L (23-31); Chloride 99 mmol/L (98-107); Estimated GFR-MDRD 50; Glucose 136 mg/dL (83-110); Potassium 4.4 mmol/L (3.5-5.1); Sodium 141 mmol/L (136-145)
--- NOTE | 2019-10-10 07:15 | PRG ---
DATE OF SERVICE: 10/09/2019 SUBJECTIVE: Ms. Vazquez appears much better today. Less shortness of breath. She recently underwent upper and lower endoscopy and found to have a 70-cm mass in her transverse colon. She is in need of surgical clearance. From a CV standpoint, Ms. Vazquez does have a previous history of CAD, status post bypass surgery. No current symptoms suggesting angina. She underwent a noninvasive stress study and was found to have an LVEF of 50%. Small area of ischemia present in the distal anteroseptal region in posterolateral aspect. OBJECTIVE: GENERAL: Patient is a pleasant female, who is in no acute distress. The patient appears their stated age. VITAL SIGNS: Blood pressure 148/67, pulse 70, and temperature 98.8. NEUROLOGIC: The patient is alert and oriented x3 with no focal neurologic deficits. HEENT: Sclerae without icterus. Mouth has moist mucous membranes with normal pallor. NECK: No JVD. Carotid upstroke brisk. No bruits bilaterally. LUNGS: Clear to auscultation with unlabored respirations. BACK: No scoliosis or kyphosis. CARDIAC: Regular rate and rhythm with normal S1 and S2. No S3 or S4 noted. No significant rubs, murmurs, thrills, or gallops noted throughout the precordium. PMI is not displaced. There is no parasternal heave. ABDOMEN: Soft, nontender, nondistended. No peritoneal signs present. No hepatosplenomegaly. No abnormal striae. EXTREMITIES: 2+ femoral and 2+ dorsalis pedis pulses. No cyanosis, clubbing, or edema. SKIN: No gross abnormalities. PERTINENT LABORATORY DATA: Hemoglobin 7.8. Creatinine 1.07. IMPRESSION: 1. Preoperative clearance. 2. Coronary artery disease. 3. Status post bypass surgery. 4. Chronic obstructive pulmonary disease. 5. Colonic mass. RECOMMENDATIONS: Ms. Vazquez has no current symptoms suggesting angina. She has 2 small areas of ischemia present with a normal LVEF. At this point, we would not proceed with any further testing. Coronary angiography is of no benefit and Ms. Vazquez was given no current symptoms. Even if she did have stenosis, could not proceed with stent implantation due to large colonic mass. At this point, the patient does not felt to be prohibitive. She is not felt to be at low risk, but not felt to be at high risk for complications. At this point, the benefits outweigh the risks of proceeding with surgery. I did discuss this with Ms. Vazquez and she is agreeable. She is currently on Coreg 6.25 b.i.d. and we will continue. Job ID: [id number]
[2019-10-10] MEDS: PROVENTIL INHALER 6.7 G (200 INHALATIONS) INH SCH ×2 (07:34→18:16)
[2019-10-10] MEDS: Mometasone/Formoterol 120 PUFF INHALER INH SCH ×2 (07:34→18:17)
[2019-10-10] MEDS: Potassium Chloride 20 MEQ TAB PO SCH (08:47)
[2019-10-10] MEDS: Amlodipine 10 MG TAB PO SCH (08:48)
[2019-10-10] MEDS: Ferrous Sulfate 325 MG TAB PO SCH ×2 (08:48→17:42)
[2019-10-10] MEDS: Multivitamin W/ Minerals 1 TAB PO SCH (08:49)
[2019-10-10] MEDS: Heparin 5,000 UNITS/ML VIAL SC SCH ×3 (08:49→20:24)
[2019-10-10] MEDS: Aspirin 325 mg Enteric Coated Tablet PO SCH (08:49)
[2019-10-10] MEDS: Carvedilol 6.25 MG TAB PO SCH ×2 (08:49→20:23)
--- NOTE | 2019-10-10 10:58 | PRG ---
DATE OF SERVICE: 10/10/2019 SUBJECTIVE: She is quite tearful this morning. She knows she needs to get stronger before surgery, but she does not want to go to rehab. OBJECTIVE: VITAL SIGNS: Temperature 98.2, pulse 65, respirations 18, O2 saturation 92% on 2 L, and blood pressure 133/93. HEENT: Unremarkable. NECK: No JVD. LUNGS: Fairly clear bilaterally. CARDIAC: S1 and S2. Regular. ABDOMEN: Soft. EXTREMITIES: No edema. LABORATORY DATA: Sodium 141, potassium 4.4, chloride 99, CO2 of 34, BUN 20, creatinine 0.1, and glucose 136. ASSESSMENT: 1. Severe chronic obstructive pulmonary disease. 2. Diastolic congestive heart failure. 3. Bilateral effusions. 4. Colon polyp. PLAN: This patient is at high risk for pulmonary complications from surgery. There is not much I can do to mitigate that risk. About the only thing I would suggest is perhaps may be letting her go to rehab and get stronger and then bring her back at another time for the surgery. We will discuss with Dr. Betts. Job ID: [id number]
[2019-10-10] MEDS: HumaLOG 300 UNITS/3 ML VIAL SC PRN ×2 (11:31→17:43)
[2019-10-10 16:22] VITALS: BMI 35.0
--- NOTE | 2019-10-10 16:43 | PDOC.HOSPP ---
- Subjective Encounter Date: 10/10/19 Encounter Time: 11:30 Subjective: no abd pain or sob or chest pain is a bit emotional when discussed about going to rehab/swing bed to get stronger she wants surgery done though - Objective Vital Signs & Weight: Vital Signs (12 hours) Temp Pulse Pulse Pulse Resp BP BP 10/10/19 11:50 70 68 134/60 131/57 L 10/10/19 11:05 97 F L 68 24 H 10/10/19 08:48 65 10/10/19 08:00 98.2 F 65 18 10/10/19 07:40 10/10/19 07:34 67 20 BP BP Pulse Ox Pulse Ox Pulse Ox 10/10/19 11:50 98 100 10/10/19 11:05 131/57 L 97 10/10/19 08:48 10/10/19 08:00 133/93 H 92 L 10/10/19 07:40 82 L 10/10/19 07:34 82 L Weight Admit Weight 201 lb 3.2 oz Weight 198 lb I&O: 10/09/19 10/10/19 10/11/19 06:59 06:59 06:59 Intake Total 2325 Output Total 1350 Balance 975 Result Diagrams: 10/08/19 03:53 10/10/19 04:20 Additional Labs: Accuchecks 10/10/19 10/10/19 10/09/19 11:17 05:50 20:32 POC Glucose 189 H 160 H 228 H 10/09/19 16:54 POC Glucose 167 H Hospitalist ROS - Medication Medications: Active Medications Generic Name Dose Route Start Last Admin Trade Name [place] PRN Reason Stop Dose Admin Acetaminophen 650 mg 10/02/19 00:44 10/07/19 22:22 Tylenol PO 650 mg Q4H PRN Administration Headache/Fever/Mild Pain (1-3) Albuterol Sulfate 1 puff 10/02/19 18:30 10/10/19 07:34 Proventil Hfa INH 1 puff BID-RT WONG Administration Amlodipine Besylate 10 mg 10/02/19 09:00 10/10/19 08:48 Norvasc PO 10 mg DAILY WONG Administration Aspirin 325 mg 10/02/19 09:00 10/10/19 08:49 Ecotrin PO 325 mg QAM WONG Administration Carvedilol 6.25 mg 10/02/19 01:18 10/10/19 08:49 Coreg PO 6.25 mg BID WONG Administration Ferrous Sulfate 325 mg 10/03/19 08:00 10/10/19 08:48 Feosol PO 325 mg BID-WM WONG Administration Heparin Sodium (Porcine) 5,000 units 10/02/19 09:00 10/10/19 15:45 Heparin SC 5,000 units TID WONG Administration Insulin Glargine 4 units/ 0.04 mls @ 0 mls/hr 10/02/19 21:00 10/09/19 21:12 Miscellaneous Medication SC 0.04 mls HS WONG Administration Insulin Human Lispro 0 units 10/04/19 14:17 10/10/19 11:31 Humalog SC 3 unit .AGGRESSIVE SLIDING PRN Administration Aggressive Correctional Scale Iron/Minerals/Multivitamins 1 tab 10/03/19 09:00 10/10/19 08:49 Theragran M PO 1 tab DAILY WONG Administration Mometasone Furoate/Formoterol Fumar 2 puff 10/02/19 18:30 10/10/19 07:34 Dulera 200 Mcg/5 Mcg Inhaler INH 2 puff BID-RT WONG Administration Pantoprazole Sodium 40 mg 10/06/19 21:00 10/10/19 08:48 Protonix PO 40 mg BID WONG Administration Janumet Xr 0 each 10/02/19 17:00 10/09/19 18:12 Mg PO 2 each QPM-WM WONG Administration Potassium Chloride 20 meq 10/03/19 09:00 10/10/19 08:47 K-Dur PO 20 meq DAILY WONG Administration Simvastatin 40 mg 10/04/19 21:00 10/09/19 21:13 Zocor PO 40 mg HS WONG Administration Sodium Chloride 10 ml 10/01/19 22:01 10/03/19 14:17 Flush - Normal Saline IVF 10 ml PRN PRN Administration Saline Flush - Exam General Appearance: awake alert Eye: PERRL, anicteric sclera ENT: no oropharyngeal lesions, moist mucosa Neck: supple, no JVD Heart: no murmur, no gallops Respiratory: no wheezes, no rales Gastrointestinal: soft, non-tender, non-distended, normal bowel sounds Extremities: no cyanosis, no edema Neurological: cranial nerve grossly intact, no focal deficits Psychiatric: A&O x 3 Hosp A/P (1) Colonic mass Code(s): K63.89 - OTHER SPECIFIED DISEASES OF INTESTINE Status: Acute (2) Acute blood loss anemia Code(s): D62 - ACUTE POSTHEMORRHAGIC ANEMIA Status: Acute (3) CAD (coronary artery disease) Code(s): I25.10 - ATHSCL HEART DISEASE OF [place] CORONARY ARTERY W/O ANG PCTRS Status: Chronic Qualifiers: Coronary Disease-Associated Artery/Lesion type: bypass graft [place] vs. transplanted heart: [place] heart Associated angina: without angina Qualified Code(s): I25.810 - Atherosclerosis of coronary artery bypass graft(s) without angina pectoris (4) h/o right breast cancer Status: Chronic (5) Iron deficiency anemia Code(s): D50.9 - IRON DEFICIENCY ANEMIA, UNSPECIFIED Status: Chronic (6) Acute respiratory failure Code(s): J96.00 - ACUTE RESPIRATORY FAILURE, UNSP W HYPOXIA OR HYPERCAPNIA Status: Resolved Qualifiers: Respiratory failure complication: hypoxia Qualified Code(s): J96.01 - Acute respiratory failure with hypoxia (7) CHF (congestive heart failure) Code(s): I50.9 - HEART FAILURE, UNSPECIFIED Status: Acute (8) COPD (chronic obstructive pulmonary disease) Status: Chronic Qualifiers: COPD type: chronic bronchitis (9) Physical deconditioning Code(s): R53.81 - OTHER MALAISE Status: Chronic (10) DM type 2 (diabetes mellitus, type 2) Status: Chronic Qualifiers: Diabetes mellitus manager intermediate insulin use: without longterm use Diabetes mellitus complication status: with unspecified complications (11) Hypertension Code(s): I10 - ESSENTIAL (PRIMARY) HYPERTENSION Status: Chronic Qualifiers: Hypertension type: essential hypertension Qualified Code(s): I10 - Essential (primary) hypertension (12) Tobacco abuse Code(s): Z72.0 - TOBACCO USE Status: Chronic - Plan had egd and colonoscopy on 10/06/2019, friable mass in colon at 70cm, biopsy shows tubulovillous adenoma. CT abd and pelvis showed no signs of mets. has cleared her for surgery. has gotten iv ferrlicet 250mg daily x4 doses for severe iron def anemia. continue asp, coreg, lasix bid, lantus, zocor, norvasc echo showed ef of 50% had 1 unit prbc given on 10/04/2019. Has underlying copd which is severe per . Patient needs to get optimised for surgery, does not want to go to rehab, ? outpt rehab and her sister might drive her daily. hemostable d/w , he wants her to get stronger prior to surgery to decrease periop and postop morbidity, he will talk to patient and family dc plan depends on family decision, may tx to med floor if placement is going to take time and they decide for it.
[2019-10-10] MEDS: JANUMET PO SCH (17:42)
[2019-10-10] MEDS: Simvastatin 40 MG TAB PO SCH (20:23)
[2019-10-10] MEDS: Insulin Glargine 4 UNITS in Pre-Filled Syringe 1 EACH SC SCH (20:25)
--- NOTE | 2019-10-10 23:35 | PRG ---
DATE OF SERVICE: 10/10/2019 TIME OF VISIT: 1630 hours. SUBJECTIVE: Ms. Vazquez is sitting up on the side the bed, resting comfortably. From what I was told, Pulmonology has recommended that she delay surgery a couple of weeks and actually get a rehab placement for improvement and strengthening. She is unsure what Dr. Betts had said thus far. She has no new complaints. She has remained stable overnight on telemetry. She denies any chest pain or shortness of breath. PHYSICAL EXAMINATION: GENERAL: This is a pleasant, elderly female, who is in no acute distress. She is sitting and resting comfortably. VITAL SIGNS: Stable. NECK: Supple with no JVD or bruits noted. CHEST: Clear, but decreased breath sounds bilaterally. CARDIOVASCULAR: Regular rate and rhythm with normal S1, S2 and 2/6 systolic murmur at the left sternal border, radiating to the neck. ABDOMEN: Soft, nontender to palpation, nondistended. EXTREMITIES: Shows no cyanosis. She has mild digital clubbing. She has mild peripheral edema. LABORATORY DATA: Reviewed and overall stable. IMPRESSION: 1. Colon mass. 2. Acute anemia. 3. Coronary artery disease, status post previous bypass surgery. 4. Chronic obstructive pulmonary disease. At this time, the patient overall is stable from a cardiac standpoint. Timing of surgery is pending. She may go to rehab placement. Otherwise, she has been cleared for surgery from Dr. Gee standpoint. She does carry moderate risk given her overall comorbidities. I have no changes or recommendations at this time. Job ID: [id number]
[2019-10-11] MEDS: PROVENTIL INHALER 6.7 G (200 INHALATIONS) INH SCH (07:14)
[2019-10-11] MEDS: Mometasone/Formoterol 120 PUFF INHALER INH SCH (07:15)
--- NOTE | 2019-10-11 07:43 | PRG ---
DATE OF SERVICE: 10/10/2019 SUBJECTIVE: Ms. Vazquez has no complaints. I had a long discussion with Dr. Richardson today. OBJECTIVE: VITAL SIGNS: She is afebrile. Vital signs are stable. ABDOMEN: Soft, nontender. ASSESSMENT: Colon mass, large unresectable benign polyp. PLAN: After discussing with Dr. Richardson, I think she would benefit from some rehab. She is nonambulatory at the time. She cannot even lie down flat because of her shortness of breath. I think she is a poor candidate for surgery for nonmalignant disease. Ultimately, this polypoid lesion would turn into a malignancy. The timing of that is unpredictable; however, her operative morbidity and mortality are still high at this point that a period of time for potential rehab would certainly benefit her. So, I highly recommend transfer to rehab and re-evaluate in a month or 2. Job ID: [id number]
[2019-10-11] MEDS: Amlodipine 10 MG TAB PO SCH (08:12)
[2019-10-11] MEDS: Ferrous Sulfate 325 MG TAB PO SCH ×2 (08:12→17:13)
[2019-10-11] MEDS: Carvedilol 6.25 MG TAB PO SCH (08:13)
[2019-10-11] MEDS: Aspirin 325 mg Enteric Coated Tablet PO SCH (08:13)
[2019-10-11] MEDS: Potassium Chloride 20 MEQ TAB PO SCH (08:14)
[2019-10-11] MEDS: Heparin 5,000 UNITS/ML VIAL SC SCH ×2 (08:14→15:23)
[2019-10-11] MEDS: Multivitamin W/ Minerals 1 TAB PO SCH (08:14)
--- NOTE | 2019-10-11 10:38 | PRG ---
DATE OF SERVICE: 10/11/2019 SUBJECTIVE: The patient is doing okay. She is planning to go to rehab. OBJECTIVE: VITAL SIGNS: Temperature 97.7, pulse 65, respirations 20, O2 saturation 95% on 2 L. HEENT: Unremarkable. NECK: No JVD. LUNGS: Distant, but clear breath sounds. CARDIAC: S1 and S2. Regular. ABDOMEN: Soft. EXTREMITIES: No edema. ASSESSMENT: 1. Acute on chronic diastolic heart failure. 2. Chronic obstructive pulmonary disease. PLAN: She is stable for transfer to rehab. Hopefully, she will be able to get her abdominal surgery later when she is stronger. Job ID: [id number]
[2019-10-11] MEDS: HumaLOG 300 UNITS/3 ML VIAL SC PRN (11:42)
[2019-10-11 12:24] VITALS: TEMP 98.5
--- NOTE | 2019-10-11 13:04 | PDOC.HOSPP ---
- Subjective Encounter Date: 10/11/19 Encounter Time: 08:45 Subjective: no sob or abd pain sister at bedside agrees to go to inpt rehab - Objective Vital Signs & Weight: Vital Signs (12 hours) Temp Pulse Pulse Pulse Resp BP BP 10/11/19 12:00 98.5 F 67 20 10/11/19 08:41 72 66 138/89 10/11/19 08:13 184/74 H 10/11/19 08:12 65 184/74 H 10/11/19 08:11 97.7 F 65 20 10/11/19 08:00 10/11/19 07:16 10/11/19 07:15 74 16 10/11/19 07:14 74 16 10/11/19 04:32 97.9 F 64 16 BP BP BP Pulse Ox Pulse Ox Pulse Ox 10/11/19 12:00 141/61 H 95 10/11/19 08:41 180/72 H 94 L 95 10/11/19 08:13 10/11/19 08:12 10/11/19 08:11 184/74 H 95 10/11/19 08:00 95 10/11/19 07:16 95 10/11/19 07:15 95 10/11/19 07:14 95 10/11/19 04:32 150/67 H 92 L Weight Admit Weight 201 lb 3.2 oz Weight 197 lb 14.4 oz I&O: 10/10/19 10/11/19 10/12/19 06:59 06:59 06:59 Intake Total 2325 1140 840 Output Total 1350 850 Balance 975 290 840 Result Diagrams: 10/08/19 03:53 10/10/19 04:20 Additional Labs: Accuchecks 10/11/19 10/11/19 10/10/19 11:05 05:32 19:40 POC Glucose 236 H 143 H 213 H 10/10/19 16:33 POC Glucose 168 H Hospitalist ROS - Medication Medications: Active Medications Generic Name Dose Route Start Last Admin Trade Name Freq PRN Reason Stop Dose Admin Acetaminophen 650 mg 10/02/19 00:44 10/07/19 22:22 Tylenol PO 650 mg Q4H PRN Administration Headache/Fever/Mild Pain (1-3) Albuterol Sulfate 1 puff 10/02/19 18:30 10/11/19 07:14 Proventil Hfa INH 1 puff BID-RT WONG Administration Amlodipine Besylate 10 mg 10/02/19 09:00 10/11/19 08:12 Norvasc PO 10 mg DAILY WONG Administration Aspirin 325 mg 10/02/19 09:00 10/11/19 08:13 Ecotrin PO 325 mg QAM WONG Administration Carvedilol 6.25 mg 10/02/19 01:18 10/11/19 08:13 Coreg PO 6.25 mg BID WONG Administration Ferrous Sulfate 325 mg 10/03/19 08:00 10/11/19 08:12 Feosol PO 325 mg BID-WM WONG Administration Heparin Sodium (Porcine) 5,000 units 10/02/19 09:00 10/11/19 08:14 Heparin SC 5,000 units TID WONG Administration Insulin Glargine 4 units/ 0.04 mls @ 0 mls/hr 10/02/19 21:00 10/10/19 20:25 Miscellaneous Medication SC 0.04 mls HS WONG Administration Insulin Human Lispro 0 units 10/04/19 14:17 10/11/19 11:42 Humalog SC 6 unit .AGGRESSIVE SLIDING PRN Administration Aggressive Correctional Scale Iron/Minerals/Multivitamins 1 tab 10/03/19 09:00 10/11/19 08:14 Theragran M PO 1 tab DAILY WONG Administration Mometasone Furoate/Formoterol Fumar 2 puff 10/02/19 18:30 10/11/19 07:15 Dulera 200 Mcg/5 Mcg Inhaler INH 2 puff BID-RT WONG Administration Pantoprazole Sodium 40 mg 10/06/19 21:00 10/11/19 08:14 Protonix PO 40 mg BID WONG Administration Janumet Xr 0 each 10/02/19 17:00 10/10/19 17:42 Mg PO 2 each QPM-WM WONG Administration Potassium Chloride 20 meq 10/03/19 09:00 10/11/19 08:14 K-Dur PO 20 meq DAILY WONG Administration Simvastatin 40 mg 10/04/19 21:00 10/10/19 20:23 Zocor PO 40 mg HS WONG Administration Sodium Chloride 10 ml 10/01/19 22:01 10/11/19 08:17 Flush - Normal Saline IVF 10 ml PRN PRN Administration Saline Flush - Exam General Appearance: awake alert Eye: PERRL, anicteric sclera ENT: no oropharyngeal lesions, moist mucosa Neck: supple, no JVD Heart: RRR, no murmur Respiratory: no wheezes, no rales, rhonchi Gastrointestinal: soft, non-tender, non-distended, normal bowel sounds Extremities: no cyanosis, no edema Neurological: cranial nerve grossly intact, no focal deficits Psychiatric: normal affect, A&O x 3 Hosp A/P (1) Colonic mass Code(s): K63.89 - OTHER SPECIFIED DISEASES OF INTESTINE Status: Acute (2) Acute blood loss anemia Code(s): D62 - ACUTE POSTHEMORRHAGIC ANEMIA Status: Acute (3) CAD (coronary artery disease) Code(s): I25.10 - ATHSCL HEART DISEASE OF [place] CORONARY ARTERY W/O ANG PCTRS Status: Chronic Qualifiers: Coronary Disease-Associated Artery/Lesion type: bypass graft [place] vs. transplanted heart: [place] heart Associated angina: without angina Qualified Code(s): I25.810 - Atherosclerosis of coronary artery bypass graft(s) without angina pectoris (4) h/o right breast cancer Status: Chronic (5) Iron deficiency anemia Code(s): D50.9 - IRON DEFICIENCY ANEMIA, UNSPECIFIED Status: Chronic (6) Acute respiratory failure Code(s): J96.00 - ACUTE RESPIRATORY FAILURE, UNSP W HYPOXIA OR HYPERCAPNIA Status: Resolved Qualifiers: Respiratory failure complication: hypoxia Qualified Code(s): J96.01 - Acute respiratory failure with hypoxia (7) CHF (congestive heart failure) Code(s): I50.9 - HEART FAILURE, UNSPECIFIED Status: Acute (8) COPD (chronic obstructive pulmonary disease) Status: Chronic Qualifiers: COPD type: chronic bronchitis (9) Physical deconditioning Code(s): R53.81 - OTHER MALAISE Status: Chronic (10) DM type 2 (diabetes mellitus, type 2) Status: Chronic Qualifiers: Diabetes mellitus longterm insulin use: without terminal operations supervisor use Diabetes mellitus complication status: with unspecified complications (11) Hypertension Code(s): I10 - ESSENTIAL (PRIMARY) HYPERTENSION Status: Chronic Qualifiers: Hypertension type: essential hypertension Qualified Code(s): I10 - Essential (primary) hypertension (12) Tobacco abuse Code(s): Z72.0 - TOBACCO USE Status: Chronic - Plan had egd and colonoscopy on 10/06/2019, friable mass in colon at 70cm, biopsy showed tubulovillous adenoma. CT abd and pelvis showed no signs of mets. has cleared her for surgery. has gotten iv ferrlicet 250mg daily x4 doses for severe iron def anemia. continue asp, coreg, lasix bid, lantus, zocor, norvasc echo showed ef of 50% had 1 unit prbc given on 10/04/2019. Has underlying copd on home O2, which is severe per . hemostable May dc anytime to inpt rehab if accepted She has ambulated nearly 140ft with rw and PT this am.
[2019-10-11 15:47] VITALS: BP 163/68
--- NOTE | 2019-10-11 16:39 | EKG ---
Test Reason : Blood Pressure : / mmHG Vent. Rate : 079 BPM Atrial Rate : 079 BPM P-R Int : 140 ms QRS Dur : 084 ms QT Int : 378 ms P-R-T Axes : 033 -02 179 degrees QTc Int : 433 ms Normal sinus rhythm with sinus arrhythmia Left ventricular hypertrophy with repolarization abnormality Abnormal ECG Old T wave inversion I, aVL New T wave inverison II, V4-V6 compared to 09/17/2016 Confirmed by RATNA GALLOWAY DO ([id number]), editor in chief newspaper CORAL HERNANDEZ ([id number]) on 10/11/2019 4:39:00 PM Referred By: Confirmed By:RATNA GALLOWAY DO
[2019-10-11] MEDS: JANUMET PO SCH (17:13)
--- NOTE | 2019-10-12 04:39 | PQF ---
Please forward to physician who discharged this patient. SAP Senior Wind Turbine Technician Crystal Reports Winform Viewer CNONIETAMMY GEOFFREY MORLEY MD [id number] CLINICAL DOCUMENTATION CLARIFICATION FORM: POST DISCHARGE Addendum to original discharge summary date: ____ Late entry note date: __ DATE: 10/12/19 ATTN:Geoffrey Devries Please exercise your independent, professional judgment in responding to the clarification form. Clinical indicators are provided on the bottom of this form for your review Can you please further clarify if NSTEMI type2 is ruled in or ruled out? NSTEMI type2 [ ] Ruled in diagnosis [ ] Continue to treat [ ] Resolved [ ] Ruled out diagnosis [ ] Cannot rule out diagnosis [ ] Other diagnosis [ ] Unable to determine In addition, please specify: Present on Admission (POA): [ ] Yes [ ] No [ ] Unable to determine For continuity of documentation, please document condition throughout progress notes and discharge summary. Thank You. CLINICAL INDICATORS - SIGNS / SYMPTOMS / LABS Hospitalist PN Dr. Devries 10/03 pg.7- NSTEMI type 2 secondary to CHF exacerbation H and P pg.1- Troponin was positive at 0.80 and increased to 0.87 H and P pg.1- EKG showed new T wave inversion in V4-V6 H and P pg.3- Elevated Troponin Laboratory- Troponin 0.80, 0.087, 0.088, 0.093, 0.073H RISK FACTORS Acute diastolic CHF exacerbation- H and P pg.3 CAD_ H and P pg.3 COPD- H and P pg.4 SHARONDA- H and P pg.4 79 years old H and P pg.1 TREATMENTS Chest X ray 10/[address] Gee 10/03 Echocardiogram 10/03 Troponin Monitoring- Laboratory IV Lasix- MAR Aspirin 325mg PO- MAR (This form is maintained as a part of the permanent medical record) 2014 [employer] All Rights Reserved [email or web address]
--- NOTE | 2019-10-12 04:43 | PQF ---
SAP Check Weigher Crystal Reports Winform Viewer TAMMY ROSALES DAVID JOHN [id number] CLINICAL DOCUMENTATION CLARIFICATION FORM: POST DISCHARGE Addendum to original discharge summary date: ____ Late entry note date: __ DATE: 10/12/19 ATTN:Dong Flores Please exercise your independent, professional judgment in responding to the clarification form. Clinical indicators are provided on the bottom of this form for your review Can you please further clarify the specificity of AVM? Please check appropriate box(s): [ ] AVM with bleeding [ ] AVM without bleeding [ ] Other diagnosis please specify [ ] Unable to determine In addition, please specify: Present on Admission (POA): [ ] Yes [ ] No [ ] Unable to determine For continuity of documentation, please document condition throughout progress notes and discharge summary. Thank You. CLINICAL INDICATORS - SIGNS / SYMPTOMS / LABS Consult 10/04 Dr. Flores- julissa Deficiency anemia PN 10/05 pg.1- Hemoglobin stable at 7.7. 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 Flores 10/04 10/02 IV Fluids- MAR Blood Transfusion EGD with argon plasma coagulation treatment- OP report Colonoscopy OP report Pantoprazole 40mg PO- MAR CT abdomen/Pelvis 10/06 (This form is maintained as a part of the permanent medical record) 2014 [employer]. All Rights Reserved [email or web address]
--- NOTE | 2019-10-12 07:34 | DIS ---
DATE OF ADMISSION: 10/01/2019 DATE OF DISCHARGE: 10/11/2019 DISCHARGE DISPOSITION: To inpatient rehab. PRIMARY DISCHARGE DIAGNOSES: Acute blood loss anemia with colonic mass, acute on chronic congestive heart failure exacerbation, acute respiratory failure with hypoxia, chronic obstructive pulmonary disease on home oxygen, deconditioning, diabetes mellitus type 2, hypertension, tobacco abuse, coronary artery disease, history of right breast cancer in the past. PROCEDURES DONE DURING HOSPITALIZATION: Chest x-ray done on the day of admission showed moderate left and tiny right pleural effusion, cardiomegaly. Echo with 2D Doppler showed EF of 50% to 55%, mild concentric LVH. The patient had EGD and colonoscopy done on 10/06/[address] Dong Flores. Upper endoscopy showed 5 small to medium gastric AV malformations, all treated with argon plasma coagulation. Otherwise, EGD was normal. Colonoscopy showed flat, friable mass in the colon at 70 cm, estimated to be in the transverse colon about 3 cm in diameter. This was not endoscopically resectable. Biopsies were obtained and the area was tattooed. There was sigmoid diverticulosis and internal hemorrhoids seen. Abdominal and pelvic CAT scan with contrast done on 10/06/2019 showed stable renal parenchymal hypodensities. No evidence of obstructive uropathy. Cholelithiasis without evidence of cholecystitis. Right-sided pleural effusion with adjacent atelectasis, mucosal thickening of the left hemicolon in the sigmoid colon area. There was no enlarged mesenteric or retroperitoneal lymph nodes. Nuclear stress test done on 2019 showed small areas of ischemia involving the anterior septal area, primarily the apex as well as some evidence of focal ischemic changes in the posterolateral aspect. End-diastolic volume was 132. Ejection fraction 50%. Wall motion was normal. TID 0.98. Histopathology of the colon biopsy showed fragments of tubulovillous adenoma. Urine clean-catch was contaminated with multiple organisms. Hemoglobin dropped down to 6.3 on the , but has been around 7.8 g all through her stay, MCV 81, platelet count 263, white count of 10. BUN 20, creatinine 1.0. Carcinoembryonic antigen levels were 3.54 ng/mL, which is within normal limits. Ferritin was 6.8, serum iron 10, TIBC 391, percent saturation 3. BNP was 615. INPATIENT CONSULTS: 1. Dr. Betts for General Surgery. 2. Dr. Richardson for Pulmonology. 3. Dr. Gee for Cardiology. DISCHARGE MEDICATION: 1. Albuterol nebulizer twice daily. 2. Norvasc 10 mg daily. 3. Symbicort inhaler 2 puffs twice daily. 4. Coreg 6.25 mg twice daily. 5. Lasix 40 mg daily. 6. Levemir 4 units subcu daily. 7. Janumet extended release mg p.o. q.p.m. 8. Multivitamin one tablet once daily. 9. Protonix 40 mg p.o. daily. 10. K-Dur 20 mEq p.o. daily. 11. Simvastatin 40 mg p.o. at bedtime. 12. Aspirin 81 mg p.o. daily. 13. Ferrous sulfate 325 mg p.o. twice daily. 14. DuoNebs three times daily. 15. Lisinopril 5 mg p.o. daily. ALLERGIES: NO KNOWN DRUG ALLERGIES. DISCHARGE PLAN: The patient to follow up with Dr. Betts in 2 to 3 weeks. She needs to follow up with Dr. Josh Nicole, her primary care physician in 2 weeks, Dr. Gee in 3 weeks. BRIEF COURSE DURING HOSPITALIZATION: The patient initially got admitted with complaints of shortness of breath. She had known history of COPD, which was end-stage and her being on home oxygen. The patient also had CHF exacerbation with diastolic dysfunction. She was gently diuresed along with antibiotics, nebulization, and steroids. She was incidentally found to be anemic. Further workup was done towards the same. She has severe iron deficiency anemia. Dr. Dong Flores was consulted for Gastroenterology. Upper and lower endoscopies done showed findings as mentioned above. She had a friable flat mass in the colon 70 cm from the anus, of which biopsies were obtained. This could not be entirely removed. The biopsy results have shown tubulovillous adenoma. She has had consultation with Dr. Betts for possible right hemicolectomy. The patient is currently deconditioned and is being discharged to inpatient rehab for further recuperation prior to undergoing surgery. She was evaluated by Dr. Richardson for COPD as well. Prior to discharge, she has ambulated nearly 140 feet with a rolling walker with minimal PT assistance. She is showing good signs of recovery from her deconditioning. She needs to further work with therapy at the rehab and follow up with Dr. Betts for likely right hemicolectomy. A total of 35 minutes was spent on discharge plan. Please see a [id number] documentation for the day of discharge on [facility]. Job ID: [id number] MTDD
--- NOTE | 2019-10-14 16:35 | PQF ---
SAP Night Manager Crystal Reports Winform ViewerTAMMY ROSALES CHUNG CHANDLER MD [id number] CLINICAL DOCUMENTATION CLARIFICATION FORM: POST DISCHARGE Addendum to original discharge summary date: ____ Late entry note date: __ DATE: 10/14/19 ATTN: Chung Cohen Please exercise your independent, professional judgment in responding to the clarification form. Clinical indicators are provided on the bottom of this form for your review Can you please further clarify if NSTEMI type 2 is ruled in or ruled out? NSTEMI type 2 [ x ] Ruled in diagnosis [ ] Continue to treat [ x ] Resolved [ ] Ruled out diagnosis [ ] Cannot rule out diagnosis [ ] Other diagnosis [ ] Unable to determine In addition, please specify: Present on Admission (POA): [ x ] Yes [ ] No [ ] Unable to determine For continuity of documentation, please document condition throughout progress notes and discharge summary. Thank You. CLINICAL INDICATORS - SIGNS / SYMPTOMS / LABS Hospitalist PN Dr. Devries 10/03 pg.7- NSTEMI type 2 secondary to CHF exacerbation H and P pg.1- Troponin was positive at 0.80 and increased to 0.87 H and P pg.1- EKG showed new T wave inversion in V4-V6 H and P pg.3- Elevated Troponin Laboratory- Troponin 0.80, 0.087, 0.088, 0.093, 0.073H RISK FACTORS Acute diastolic CHF exacerbation- H and P pg.3 CAD_ H and P pg.3 COPD- H and P pg.4 SHARONDA- H and P pg.4 79 years old H and P pg.1 TREATMENTS Chest X ray 10/[address] Gee 10/03 Echocardiogram 10/03 Troponin Monitoring- Laboratory IV Lasix- MAR Aspirin 325mg PO- MAR (This form is maintained as a part of the permanent medical record) 2014 [employer]. All Rights Reserved [email or web address]
== END 2019-10-11 17:16 | DRG 280 ==
LOC: ERS 15:32 → 2NO 21:35
PROVIDERS: ADMIT Internal Medicine; ATTEND Internal Medicine
PROC: 30233N1 Transfusion of Nonautologous Red Blood Cells into Peripheral Vein, Percutaneous Approach (ICD-10-PCS; 2019-10-04)
PROC: 0D568ZZ Destruction of Stomach, Via Natural or Artificial Opening Endoscopic (ICD-10-PCS; principal; 2019-10-06)
PROC: 0DBL8ZX Excision of Transverse Colon, Via Natural or Artificial Opening Endoscopic, Diagnostic (ICD-10-PCS; 2019-10-06)
DX: I13.0 Hypertensive heart and chronic kidney disease with heart failure and stage 1 through stage 4 chronic kidney disease, or unspecified chronic kidney disease (principal); I50.33 Acute on chronic diastolic (congestive) heart failure; I21.A1 Myocardial infarction type 2; J96.21 Acute and chronic respiratory failure with hypoxia; N17.9 Acute kidney failure, unspecified; D62 Acute posthemorrhagic anemia; I25.810 Atherosclerosis of coronary artery bypass graft(s) without angina pectoris; D12.3 Benign neoplasm of transverse colon; J44.9 Chronic obstructive pulmonary disease, unspecified; E78.5 Hyperlipidemia, unspecified; F32.9 Major depressive disorder, single episode, unspecified; N18.2 Chronic kidney disease, stage 2 (mild); D50.9 Iron deficiency anemia, unspecified; D63.1 Anemia in chronic kidney disease; E11.65 Type 2 diabetes mellitus with hyperglycemia; E11.22 Type 2 diabetes mellitus with diabetic chronic kidney disease; I35.0 Nonrheumatic aortic (valve) stenosis; I48.0 Paroxysmal atrial fibrillation; K31.819 Angiodysplasia of stomach and duodenum without bleeding; K57.30 Diverticulosis of large intestine without perforation or abscess without bleeding; K64.8 Other hemorrhoids; Z85.3 Personal history of malignant neoplasm of breast; Z95.1 Presence of aortocoronary bypass graft; Z87.891 Personal history of nicotine dependence; Z79.82 Long term (current) use of aspirin; Z79.51 Long term (current) use of inhaled steroids; Z79.4 Long term (current) use of insulin; Z79.899 Other long term (current) drug therapy; Z90.49 Acquired absence of other specified parts of digestive tract; Z99.81 Dependence on supplemental oxygen; E66.9 Obesity, unspecified; Z68.35 Body mass index [BMI] 35.0-35.9, adult
CPT/HCPCS: 36415; 36416; 36430; 71045; 71046; 74177; 78452; 80048; 80053; 81001; 82274; 82378; 82553; 82728; 83540; 83550; 83735; 83880; 84484; 85025; 86850; 86900; 86901; 87086; 88305; 93005; 93017; 93306; 93798; 94640; 96374; 96376; 99406; A9500; J1644; J1815; J1940; J2250; J2704; J2785; J2916; J3490; J7620; P9016; Q9967

== ENCOUNTER 2020-02-11 11:16 | Emergency (ER) | payer MEDICARE, MEDICAID, OTHER ==
[2020-02-11 12:50] LABS: #Eosinphils 0.1 thou/uL (0.0-0.7); #Lymphocytes 0.9 thou/uL (1.20-3.40); #Monocytes 0.5 thou/uL (0.11-0.59); #Neutrophils 6.9 thou/uL (1.40-6.50); %Basophils 0.2 % (0.0-1.0); %Eosinophils 1.2 % (0.0-10.0); %Lymphocytes 11.2 % (21.0-51.0); %Monocytes 6.2 % (0.0-10.0); %Neutrophils 81.3 % (42.0-75.0); Hemoglobin 12.3 g/dL (12.0-16.0); Mean Corpuscular HGB CONC 30.9 g/dL (32.0-36.0); Mean Corpuscular Hemoglobin 28.2 pg (27.0-31.0); Mean Corpuscular Volume 91.3 fL (78.0-98.0); Mean Platelet Volume 9.2 fL (7.4-10.4); Platelet Count 196 thou/uL (130-400); RBC Distribution Width 13.6 % (11.5-14.5); Red Blood Cell (RBC) Count 4.38 mill/uL (4.20-5.40); White Blood Cell (WBC) Count 8.4 thou/uL (4.8-10.8)
--- NOTE | 2020-02-11 12:53 | RAD ---
EXAM: Single view of the chest HISTORY: Chest pain COMPARISON: 10/04/2019 FINDINGS: Single view of the chest shows an enlarged but stable cardiomediastinal silhouette. The pa tient is status post sternotomy. There is a moderate left pleural effusion The bones are unremarkable. IMPRESSION: Moderate left pleural effusion
[2020-02-11 13:15] LABS: ALT (SGPT) 12 U/L (8-55); AST (SGOT) 14 U/L (5-34); Albumin 3.8 g/dL (3.4-4.8); Alkaline Phosphatase 130 U/L (40-110); BUN (Urea Nitrogen) 16 mg/dL (9.8-20.1); Bilirubin, Total 0.2 mg/dL (0.2-1.2); Calc. Creatinine Clearance 0 mL/min (70-130); Calcium 9.3 mg/dL (7.8-10.44); Estimated GFR-MDRD 66; Glucose 220 mg/dL (83-110); Protein, Total 6.8 g/dL (6.0-8.3)
[2020-02-11 13:28] LABS: Chloride 93 mmol/L (98-107); Potassium 4.5 mmol/L (3.5-5.1); Sodium 141 mmol/L (136-145)
[2020-02-11 13:31] LABS: Anion Gap 17 mmol/L (10-20); Carbon Dioxide 36 mmol/L (23-31)
== END 2020-02-11 15:15 | disposition home or self-care (01) ==
LOC: ERS 11:16
DX: J44.1 Chronic obstructive pulmonary disease with (acute) exacerbation (principal); R60.0 Localized edema; F32.9 Major depressive disorder, single episode, unspecified; I10 Essential (primary) hypertension; I50.9 Heart failure, unspecified; E78.5 Hyperlipidemia, unspecified; Z79.82 Long term (current) use of aspirin; Z79.4 Long term (current) use of insulin; Z79.899 Other long term (current) drug therapy; Z87.891 Personal history of nicotine dependence; Z85.3 Personal history of malignant neoplasm of breast
CPT/HCPCS: 36415; 71045; 80053; 83880; 85025; 93005; 94760

== ENCOUNTER 2020-03-03 15:48 | Inpatient (IN) | payer MEDICARE, MEDICAID ==
--- NOTE | 2020-03-03 16:27 | RAD ---
EXAM: Single view of the chest HISTORY: Shortness of breath and leg swelling COMPARISON: 02/11/2020 FINDINGS: Single view of the chest shows an enlarged but stable cardiomediastinal silhouette. The pa tient is status post sternotomy. There is a moderate left pleural effusion with adjacent atelectasis. The bones are unremarkable. IMPRESSION: Moderate left pleural effusion with adjacent atelectasis
[2020-03-03 16:54] LABS: #Eosinphils 0.1 thou/uL (0.0-0.7); #Lymphocytes 0.9 thou/uL (1.20-3.40); #Monocytes 0.7 thou/uL (0.11-0.59); #Neutrophils 7.6 thou/uL (1.40-6.50); %Eosinophils 0.8 % (0.0-10.0); %Lymphocytes 9.6 % (21.0-51.0); %Monocytes 7.4 % (0.0-10.0); %Neutrophils 82.2 % (42.0-75.0); Hemoglobin 11.9 g/dL (12.0-16.0); Mean Corpuscular HGB CONC 30.4 g/dL (32.0-36.0); Mean Corpuscular Volume 92.3 fL (78.0-98.0); Mean Platelet Volume 9.9 fL (7.4-10.4); Platelet Count 112 thou/uL (130-400); RBC Distribution Width 14.4 % (11.5-14.5); Red Blood Cell (RBC) Count 4.23 mill/uL (4.20-5.40); White Blood Cell (WBC) Count 9.2 thou/uL (4.8-10.8)
[2020-03-03 17:07] LABS: ALT (SGPT) 14 U/L (8-55); AST (SGOT) 15 U/L (5-34); Albumin 3.8 g/dL (3.4-4.8); Alkaline Phosphatase 117 U/L (40-110); Anion Gap 14 mmol/L (10-20); BUN (Urea Nitrogen) 25 mg/dL (9.8-20.1); Bilirubin, Total 0.4 mg/dL (0.2-1.2); Calc. Creatinine Clearance 0 mL/min (70-130); Carbon Dioxide 37 mmol/L (23-31); Chloride 92 mmol/L (98-107); Estimated GFR-MDRD 47; Globulin 3.1 g/dL (2.4-3.5); Glucose 276 mg/dL (83-110); Potassium 4.7 mmol/L (3.5-5.1); Protein, Total 6.9 g/dL (6.0-8.3); Sodium 138 mmol/L (136-145)
[2020-03-03 17:10] LABS: Platelet Morphology Comment Appears Decreased; RBC Morphology Normal
[2020-03-03 17:27] LABS: CKMB 2.3 ng/mL (0-6.6)
[2020-03-03] MEDS ORDERED: Furosemide 40 MG/4 ML VIAL ONE (18:40)
[2020-03-03] MEDS ORDERED: Albuterol 200 PUFF (6.7GM INHALER) INH SCH (21:00)
[2020-03-03 21:05] LABS: Troponin I 0.044 ng/mL (< 0.028)
[2020-03-03] MEDS ORDERED: Albuterol 200 PUFF (6.7GM INHALER) INH PRN (22:15)
[2020-03-03 22:26] VITALS: BMI 35.9
[2020-03-03] MEDS: Atorvastatin Calcium 20 MG TAB PO SCH (22:52)
[2020-03-03 23:39] LABS: Troponin I 0.056 ng/mL (< 0.028)
[2020-03-04 05:12] LABS: Prothrombin Time 13.4 sec (12.0-14.7)
[2020-03-04] MEDS: Furosemide 40 MG/4 ML VIAL SLOW IVP SCH ×2 (05:18→15:07)
[2020-03-04] MEDS ORDERED: hydrALAZINE 20 MG/ML VIAL SLOW IVP PRN (05:42)
[2020-03-04] MEDS: Mometasone 200 MCG/Formoterol 5 MCG 120 PUFF INHALER INH SCH ×2 (07:09→19:33)
[2020-03-04] MEDS: Potassium Chloride 20 MEQ TAB PO SCH (07:58)
[2020-03-04] MEDS: Carvedilol 6.25 MG TAB PO SCH ×2 (07:58→17:37)
[2020-03-04] MEDS: Lisinopril 5 MG TAB PO SCH (07:58)
[2020-03-04] MEDS: Amlodipine 10 MG TAB PO SCH (07:58)
[2020-03-04] MEDS: Ferrous Sulfate 325 MG TAB PO SCH ×2 (07:58→17:37)
[2020-03-04] MEDS: Aspirin Chewable 81 MG TAB PO SCH (07:59)
[2020-03-04] MEDS ORDERED: INSULIN DETEMIR 4 UNIT SQ SCH (09:00)
[2020-03-04] MEDS ORDERED: Enoxaparin Sodium 40 MG/0.4 ML SYRINGE SC SCH ×2 (09:00→21:00)
[2020-03-04] MEDS ORDERED: Insulin Glargine 4 UNITS in Pre-Filled Syringe 1 EACH SC SCH (09:00)
[2020-03-04] MEDS ORDERED: Dextrose 5% in Water 1,000 ML IV PRN (10:51)
[2020-03-04] MEDS ORDERED: Dextrose 50% Abboject 50 ML SYRINGE SLOW IVP PRN (10:51)
--- NOTE | 2020-03-04 11:51 | HP ---
CHIEF COMPLAINT: Shortness of breath. HISTORY OF PRESENT ILLNESS: The patient is a 79-year-old female with past medical history of coronary artery disease, COPD, hypertension, diabetes mellitus, and arthritis, who presented to the hospital with complaints of worsening shortness of breath and lower extremity edema for the past 3 days. The patient does carry a diagnosis of congestive heart failure and has been compliant with her Lasix according to her story. The patient stated that she has not been very compliant with her salt restriction in her diet lately. She wears oxygen at home at 2 L, but lately has been needing to increase it to 4 L due to worsening symptoms. She denies chest pain, fever, nausea, or vomiting. REVIEW OF SYSTEMS: Negative except as noted in HPI. PAST MEDICAL HISTORY: As noted above. PAST SURGICAL HISTORY: CABG, appendectomy, right lumpectomy of the breast, cataract, skin cancer removal in the forearm. SOCIAL HISTORY: The patient denies alcohol use, illicit drug use, and stated that she quit smoking earlier this year. ALLERGIES: NO KNOWN DRUG ALLERGIES. PHYSICAL EXAMINATION: GENERAL: The patient is alert and oriented x3. HEENT: Head is normocephalic and atraumatic. Extraocular muscles are intact. NECK: Supple. CHEST: Auscultation revealed decreased breath sounds and crackles bilaterally. CARDIOVASCULAR: Revealed irregular rhythm with normal rate. No murmurs, rubs, or gallops. NEUROLOGIC: Did not show any focal abnormalities. EXTREMITIES: Revealed 2+ pitting edema. ASSESSMENT: 1. Acute exacerbation of congestive heart failure. 2. Acute on chronic respiratory failure with hypoxia. 3. New onset atrial fibrillation. 4. Pleural effusion. PLAN: The patient will be placed on telemetry. Start low-salt diet and 1800 mL fluid restriction. Daily weight and strict intake and output. Start Lasix 40 mg IV twice daily. Check echocardiogram. Consult Cardiology and Pulmonology. Start therapeutic Lovenox given her elevated CHADS-VASc score. Job ID: [id number]
[2020-03-04] MEDS ORDERED: Insulin Glargine 40 UNITS in Pre-Filled Syringe 1 EACH SC SCH (12:30)
[2020-03-04] MEDS: HumaLOG 300 UNITS/3 ML VIAL SC PRN ×2 (12:45→17:37)
--- NOTE | 2020-03-04 14:23 | CON ---
DATE OF CONSULTATION: 03/04/2020 REASON FOR CONSULTATION: Shortness of breath. HISTORY OF PRESENT ILLNESS: Ms. Vazquez is a very pleasant 79-year-old woman, who I have seen and evaluated in the past. She has a history of severe COPD in addition to AFib with RVR. She has been seen and evaluated on several occasions while in the hospital. She was last seen in the office in November. She states she began to have lower extremity edema in addition to increased shortness of breath. She was seen and evaluated by Dr. Jones, who recommended that she proceed to the emergency room. HOME MEDICATIONS: Include, 1. Aspirin. 2. Iron sulfate. 3. Amlodipine. 4. Centrum Silver. 5. Levemir. 6. Pantoprazole. 7. Janumet. 8. Albuterol. 9. Simvastatin. 10. Coreg. 11. Lisinopril. 12. Lasix. PAST MEDICAL HISTORY: CAD, hypertension, COPD, diabetes mellitus, pulmonary artery disease, anemia, LVH, aortic stenosis, atrial fibrillation. PAST SURGICAL HISTORY: CABG x3, appendectomy, lumpectomy, colostomy. SOCIAL HISTORY: Positive tobacco use. ALLERGIES: NONE. REVIEW OF SYSTEMS: Ten-point review of systems is reviewed and is as above, otherwise negative. PHYSICAL EXAMINATION: GENERAL: Patient is a pleasant woman who is in no acute distress. The patient appear older than stated age. VITAL SIGNS: Blood pressure 110/70, pulse 80, respirations 20. NEUROLOGIC: The patient is alert and oriented x3 with no focal neurologic deficits. HEENT: Sclerae without icterus. Mouth has moist mucous membranes with normal pallor. NECK: No JVD. Carotid upstroke brisk. No bruits bilaterally. LUNGS: Clear to auscultation with unlabored respirations. BACK: No scoliosis or kyphosis. CARDIAC: Irregularly irregular rate and rhythm with normal S1 and S2. No S3 or S4 noted. No significant rubs, murmurs, thrills, or gallops noted throughout the precordium. PMI is not displaced. There is no parasternal heave. ABDOMEN: Soft, nontender, nondistended. No peritoneal signs present. No hepatosplenomegaly. No abnormal striae. EXTREMITIES: 2+ femoral and 2+ dorsalis pedis pulses. No cyanosis, clubbing, or edema. SKIN: No gross abnormalities. PERTINENT LABORATORY DATA: Hemoglobin 11.9. BNP is 661. IMPRESSION: 1. Shortness of breath. 2. Atrial fibrillation with rapid ventricular response. 3. Mild aortic stenosis. 4. Colonic mass. RECOMMENDATIONS: Ms. Vazquez does have AFib and has had AFib chronically. Heart rate has been stable. Would agree with neb treatments and Lasix. She also has mild aortic stenosis, which maybe a minor contributing factor. She also has a colonic mass and has opted to not treat this in the past. This is the main reason she has not been on anticoagulation therapy due to increased risk of bleeding, which she has had in the past. At this point, I will recommend continued conservative therapy. Job ID: [id number]
--- NOTE | 2020-03-04 14:47 | PDOC.HOSPP ---
- Subjective Encounter Date: 03/04/20 Subjective: The patient stated that her shortness of breath is improved compared to yesterday. - Objective Vital Signs & Weight: Vital Signs (12 hours) Temp Pulse Resp BP BP BP Pulse Ox 03/04/20 13:20 79 16 93 L 03/04/20 11:36 98.6 F 90 20 138/63 95 03/04/20 07:58 94 129/83 03/04/20 07:50 98.5 F 94 18 129/83 91 L 03/04/20 07:15 92 L 03/04/20 07:12 95 16 92 L 03/04/20 07:09 95 16 92 L 03/04/20 06:36 102 H Weight Weight 209 lb 8 oz I&O: 03/03/20 03/04/20 03/05/20 06:59 06:59 06:59 Intake Total 240 Output Total 700 Balance -460 Result Diagrams: 03/03/20 16:30 03/03/20 16:30 Additional Labs: Accuchecks 03/04/20 11:00 POC Glucose 447 H Hospitalist ROS - Medication Medications: Active Medications Generic Name Dose Route Start Last Admin Trade Name Freq PRN Reason Stop Dose Admin Amlodipine Besylate 10 mg 03/04/20 09:00 03/04/20 07:58 Norvasc PO 10 mg DAILY WONG Administration Aspirin 81 mg 03/04/20 09:00 03/04/20 07:59 Aspirin Chewable PO 81 mg DAILY WONG Administration Atorvastatin Calcium 20 mg 03/03/20 21:00 03/03/20 22:52 Lipitor PO 20 mg HS WONG Administration Carvedilol 6.25 mg 03/04/20 08:00 03/04/20 07:58 Coreg PO 6.25 mg BID-WM WONG Administration Ferrous Sulfate 325 mg 03/04/20 08:00 03/04/20 07:58 Feosol PO 325 mg BID-WM WONG Administration Furosemide 40 mg 03/04/20 06:00 03/04/20 05:18 Lasix SLOW IVP 40 mg 0600,1400 WONG Administration Hydralazine HCl 10 mg 03/04/20 05:42 03/04/20 06:36 Apresoline SLOW IVP 10 mg Q6H PRN Administration SBP > 180 Insulin Glargine 40 units/ 0.4 mls @ 0 mls/hr 03/04/20 12:30 03/04/20 12:46 Miscellaneous Medication SC 03/04/20 15:00 0.4 mls NOW WONG Administration As Directed Insulin Human Lispro 0 units 03/04/20 10:51 03/04/20 12:45 Humalog SC 10 unit .MODERATE SLIDING SC PRN Administration Moderate Correctional Scale Lisinopril 5 mg 03/04/20 09:00 03/04/20 07:58 Zestril PO 5 mg QAM WONG Administration Mometasone Furoate/Formoterol Fumar 2 puff 03/04/20 06:30 03/04/20 07:09 Dulera 200 Mcg/5 Mcg Inhaler INH 2 puff BID-RT WONG Administration Pantoprazole Sodium 40 mg 03/04/20 09:00 03/04/20 07:58 Protonix PO 40 mg DAILY WONG Administration Potassium Chloride 20 meq 03/04/20 08:00 03/04/20 07:58 K-Dur PO 20 meq QAM-WM WONG Administration - Exam General Appearance: awake alert ENT: normocephalic atraumatic Neck: supple Heart: irregular Respiratory: rhonchi, wheezes Neurological: cranial nerve grossly intact, no focal deficits Hosp A/P (1) CHF exacerbation Code(s): I50.9 - HEART FAILURE, UNSPECIFIED Status: Acute (2) Atrial fibrillation Code(s): I48.91 - UNSPECIFIED ATRIAL FIBRILLATION Status: Acute (3) COPD exacerbation Code(s): J44.1 - CHRONIC OBSTRUCTIVE PULMONARY DISEASE W (ACUTE) EXACERBATION Status: Acute (4) Acute respiratory failure with hypercapnia Code(s): J96.02 - ACUTE RESPIRATORY FAILURE WITH HYPERCAPNIA Status: Acute (5) DM type 2 (diabetes mellitus, type 2) Status: Chronic - Plan Continue Lasix for CHF exacerbation. Echocardiogram pending. The patient is having good urine output. Her symptoms are improving. She appears to be in some degree of COPD exacerbation. We will initiate prednisone, azithromycin, and increase the frequency of her DuoNeb.
[2020-03-04] MEDS ORDERED: Albuterol 200 PUFF (6.7GM INHALER) INH SCH (18:30)
[2020-03-04] MEDS: Atorvastatin Calcium 20 MG TAB PO SCH (20:27)
[2020-03-05 03:56] LABS: #Eosinphils 0.1 thou/uL (0.0-0.7); #Lymphocytes 0.8 thou/uL (1.20-3.40); #Monocytes 0.6 thou/uL (0.11-0.59); #Neutrophils 8.1 thou/uL (1.40-6.50); %Basophils 0.1 % (0.0-1.0); %Eosinophils 1.3 % (0.0-10.0); %Lymphocytes 8.4 % (21.0-51.0); %Monocytes 5.7 % (0.0-10.0); %Neutrophils 84.4 % (42.0-75.0); Hemoglobin 11.5 g/dL (12.0-16.0); Mean Corpuscular Hemoglobin 28.4 pg (27.0-31.0); Mean Corpuscular Volume 91.6 fL (78.0-98.0); Mean Platelet Volume 10.4 fL (7.4-10.4); Platelet Count 118 thou/uL (130-400); RBC Distribution Width 14.4 % (11.5-14.5); Red Blood Cell (RBC) Count 4.06 mill/uL (4.20-5.40); White Blood Cell (WBC) Count 9.6 thou/uL (4.8-10.8)
[2020-03-05 04:00] LABS: INR-International Normal Ratio 1.1; Prothrombin Time 14.2 sec (12.0-14.7)
[2020-03-05 04:16] LABS: BUN (Urea Nitrogen) 22 mg/dL (9.8-20.1); Calc. Creatinine Clearance 72 mL/min (70-130); Calcium 9.1 mg/dL (7.8-10.44); Estimated GFR-MDRD 56; Glucose 137 mg/dL (83-110)
[2020-03-05 04:27] LABS: Anion Gap 16 mmol/L (10-20); Carbon Dioxide 35 mmol/L (23-31); Chloride 92 mmol/L (98-107); Potassium 3.8 mmol/L (3.5-5.1); Sodium 139 mmol/L (136-145)
[2020-03-05] MEDS: Furosemide 40 MG/4 ML VIAL SLOW IVP SCH ×2 (05:59→14:30)
[2020-03-05] MEDS: Mometasone 200 MCG/Formoterol 5 MCG 120 PUFF INHALER INH SCH ×2 (07:16→19:31)
[2020-03-05] MEDS: Potassium Chloride 20 MEQ TAB PO SCH (08:48)
[2020-03-05] MEDS: predniSONE 20 MG TAB PO SCH (08:48)
[2020-03-05] MEDS: Insulin Glargine 30 UNITS in Pre-Filled Syringe 1 EACH SC SCH (08:48)
[2020-03-05] MEDS: Azithromycin 250 MG TAB PO SCH (08:49)
[2020-03-05] MEDS: Amlodipine 10 MG TAB PO SCH (08:49)
[2020-03-05] MEDS: Aspirin Chewable 81 MG TAB PO SCH (08:50)
[2020-03-05] MEDS: Carvedilol 6.25 MG TAB PO SCH ×2 (08:50→18:21)
[2020-03-05] MEDS: Ferrous Sulfate 325 MG TAB PO SCH ×2 (08:50→18:21)
[2020-03-05] MEDS: Lisinopril 5 MG TAB PO SCH (08:50)
[2020-03-05] MEDS: Enoxaparin Sodium 40 MG/0.4 ML SYRINGE SC SCH (08:51)
--- NOTE | 2020-03-05 10:22 | CON ---
DATE OF CONSULTATION: 03/05/2020 HISTORY OF PRESENT ILLNESS: Taylor is a 79-year-old female with history of congestive heart failure and pleural effusion, it has been tapped by Dr. Richardson in the past. She has been admitted in the past and diuresed and improved with diuresis. She has a chronic pleural effusion on the left going back over a year. She is admitted with lower extremity swelling and complains of increased shortness of breath. She also has chronic obstructive pulmonary disease, is on oxygen at home. She has a history of atrial fibrillation. MEDICATIONS: Medications have been reviewed. PAST MEDICAL HISTORY: Remarkable for, 1. Coronary artery disease. 2. Hypertension. 3. COPD. 4. Chronic hypoxemic respiratory failure, on home oxygen. 5. Diabetes. 6. History of aortic stenosis. 7. History of atrial fibrillation. 8. History of coronary artery bypass grafting. 9. History of an appendectomy. 10. History of a lumpectomy. 11. History of colostomy in the past. SOCIAL HISTORY: She denies currently smoking. She says she quit early in the year. She is not a drinker. REVIEW OF SYSTEMS: Ten-point review of systems otherwise negative. ALLERGIES: NEGATIVE. PHYSICAL EXAMINATION: VITAL SIGNS: She is afebrile. Heart rate is in the 90s, respiratory rate is , oximetry is 94, and blood pressure is 130/63. HEAD AND NECK: Unremarkable. GENERAL: She appears her age. RESPIRATORY: She has absent breath sounds at her left base. HEART: Regular rhythm. ABDOMEN: Soft and nontender. EXTREMITIES: Without clubbing or cyanosis. She does have 2+ pretibial edema about a quarter the way up to her knees. DIAGNOSTIC DATA: Chest radiograph shows a large left effusion, not significantly changed. LABORATORY DATA: White count 9.6, hemoglobin 11.5, and platelets 118. Sodium 139, potassium 3.8, chloride 92, bicarb 35, BUN 22, and creatinine 0.97. IMPRESSION: 1. Chronic congestive heart failure with mild exacerbation. 2. Underlying chronic obstructive pulmonary disease, on home oxygen. PLAN: Diuresis, serial exams. She gets worse, so we would not recommend another thoracentesis at this point. This is a 50 min consult with greater than 50% of the time spent on coordination of care. Job ID: [id number] [facility]
[2020-03-05] MEDS: HumaLOG 300 UNITS/3 ML VIAL SC PRN ×3 (11:53→21:55)
--- NOTE | 2020-03-05 14:30 | PDOC.HOSPP ---
- Subjective Encounter Date: 03/05/20 Subjective: The patient's respiratory status is improving. She remains hypoxic. - Objective Vital Signs & Weight: Vital Signs (12 hours) Temp Pulse Resp BP BP Pulse Ox 03/05/20 11:27 99.1 F 90 20 134/63 94 L 03/05/20 10:53 90 16 92 L 03/05/20 08:45 98.2 F 106 H 22 H 158/57 H 95 03/05/20 07:16 92 16 94 L 03/05/20 07:15 92 16 94 L 03/05/20 03:37 98.2 F 87 20 130/63 95 Weight Weight 206 lb 14.4 oz I&O: 03/04/20 03/05/20 03/06/20 06:59 06:59 06:59 Intake Total 240 720 Output Total 700 1800 Balance -460 -1080 Result Diagrams: 03/05/20 03:41 03/05/20 03:41 Additional Labs: Accuchecks 03/05/20 03/05/20 03/04/20 10:42 05:29 20:19 POC Glucose 379 H 121 H 157 H 03/04/20 16:45 POC Glucose 195 H Hospitalist ROS - Medication Medications: Active Medications Generic Name Dose Route Start Last Admin Trade Name Freq PRN Reason Stop Dose Admin Albuterol/Ipratropium 3 ml 03/04/20 15:00 03/05/20 10:53 Duoneb NEB 3 ml [id number] WONG Administration Amlodipine Besylate 10 mg 03/04/20 09:00 03/05/20 08:49 Norvasc PO 10 mg DAILY WONG Administration Aspirin 81 mg 03/04/20 09:00 03/05/20 08:50 Aspirin Chewable PO 81 mg DAILY WONG Administration Atorvastatin Calcium 20 mg 03/03/20 21:00 03/04/20 20:27 Lipitor PO 20 mg HS WONG Administration Azithromycin 500 mg 03/05/20 09:00 03/05/20 08:49 Zithromax PO 03/08/20 09:01 500 mg DAILY WONG Administration Carvedilol 6.25 mg 03/04/20 08:00 03/05/20 08:50 Coreg PO 6.25 mg BID-WM WONG Administration Enoxaparin Sodium 40 mg 03/05/20 09:00 03/05/20 08:51 Lovenox SC 40 mg 0900 WONG Administration Ferrous Sulfate 325 mg 03/04/20 08:00 03/05/20 08:50 Feosol PO 325 mg BID-WM WONG Administration Furosemide 40 mg 03/04/20 06:00 03/05/20 05:59 Lasix SLOW IVP 40 mg 0600,1400 WONG Administration Hydralazine HCl 10 mg 03/04/20 05:42 03/04/20 06:36 Apresoline SLOW IVP 10 mg Q6H PRN Administration SBP > 180 Insulin Glargine 30 units/ 0.3 mls @ 0 mls/hr 03/05/20 09:00 03/05/20 08:48 Miscellaneous Medication SC 0.3 mls QAM WONG Administration Insulin Human Lispro 0 units 03/04/20 10:51 03/05/20 11:53 Humalog SC 10 unit .MODERATE SLIDING SC PRN Administration Moderate Correctional Scale Lisinopril 5 mg 03/04/20 09:00 03/05/20 08:50 Zestril PO 5 mg QAM WONG Administration Mometasone Furoate/Formoterol Fumar 2 puff 03/04/20 06:30 03/05/20 07:16 Dulera 200 Mcg/5 Mcg Inhaler INH 2 puff BID-RT WONG Administration Pantoprazole Sodium 40 mg 03/04/20 09:00 03/05/20 08:50 Protonix PO 40 mg DAILY WONG Administration Potassium Chloride 20 meq 03/04/20 08:00 03/05/20 08:48 K-Dur PO 20 meq QAM-WM WONG Administration Prednisone 60 mg 03/05/20 08:00 03/05/20 08:48 Prednisone PO 60 mg QAM-WM WONG Administration - Exam General Appearance: awake alert ENT: normocephalic atraumatic Neck: supple Respiratory: normal chest expansion, rhonchi, wheezes Gastrointestinal: soft Neurological: cranial nerve grossly intact, no focal deficits Hosp A/P (1) CHF exacerbation Code(s): I50.9 - HEART FAILURE, UNSPECIFIED Status: Acute (2) Atrial fibrillation Code(s): I48.91 - UNSPECIFIED ATRIAL FIBRILLATION Status: Acute (3) COPD exacerbation Code(s): J44.1 - CHRONIC OBSTRUCTIVE PULMONARY DISEASE W (ACUTE) EXACERBATION Status: Acute (4) Acute respiratory failure with hypercapnia Code(s): J96.02 - ACUTE RESPIRATORY FAILURE WITH HYPERCAPNIA Status: Acute (5) DM type 2 (diabetes mellitus, type 2) Status: Chronic - Plan Acute on chronic respiratory failure with hypoxia due to COPD and CHF exacerbations. The patient remains hypoxic requiring more oxygen than her baseline. She is tolerating diuresis well. Continue nebulizer treatments, antibiotics, and corticosteroids.
--- NOTE | 2020-03-05 15:06 | PRG ---
DATE OF SERVICE: 03/05/2020 SUBJECTIVE: Ms. Vazquez states she is breathing better today. She has diuresed on Lasix. She continues with neb treatments. She is also on steroid therapy. OBJECTIVE: VITAL SIGNS: Blood pressure 134/63, pulse 90, temperature 99.1. LUNGS: Rhonchi and rales bilaterally with mild crackles. HEART: Irregularly irregular. ABDOMEN: Soft, nontender, nondistended. EXTREMITIES: 1+ pitting edema. PERTINENT LABORATORY DATA: Hemoglobin 11.5. Creatinine 0.97. IMPRESSION: 1. Acute on chronic diastolic/systolic heart failure. 2. Chronic obstructive pulmonary disease. 3. Atrial fibrillation. RECOMMENDATIONS: 1. Continue neb treatments, corticosteroids, and IV Lasix. 2. Check BNP in a.m. 3. Continue Coreg one p.o. b.i.d. in addition to atorvastatin, aspirin, as well as amlodipine. Job ID: [id number]
[2020-03-05] MEDS: Atorvastatin Calcium 20 MG TAB PO SCH (20:48)
[2020-03-06 04:16] LABS: INR-International Normal Ratio 1.1; Prothrombin Time 14.3 sec (12.0-14.7)
[2020-03-06 04:31] LABS: BUN (Urea Nitrogen) 33 mg/dL (9.8-20.1); Calc. Creatinine Clearance 54 mL/min (70-130); Calcium 8.8 mg/dL (7.8-10.44); Estimated GFR-MDRD 41; Glucose 315 mg/dL (83-110)
[2020-03-06 04:41] LABS: Chloride 91 mmol/L (98-107); Potassium 4.6 mmol/L (3.5-5.1); Sodium 136 mmol/L (136-145)
[2020-03-06 04:44] LABS: Anion Gap 17 mmol/L (10-20); Carbon Dioxide 33 mmol/L (23-31)
[2020-03-06 05:02] LABS: #Lymphocytes 0.8 thou/uL (1.20-3.40); #Monocytes 0.5 thou/uL (0.11-0.59); #Neutrophils 9.2 thou/uL (1.40-6.50); %Basophils 0.1 % (0.0-1.0); %Eosinophils 0.2 % (0.0-10.0); %Lymphocytes 7.4 % (21.0-51.0); %Monocytes 4.4 % (0.0-10.0); %Neutrophils 87.9 % (42.0-75.0); Hemoglobin 10.8 g/dL (12.0-16.0); Mean Corpuscular HGB CONC 29.9 g/dL (32.0-36.0); Mean Corpuscular Hemoglobin 27.4 pg (27.0-31.0); Mean Corpuscular Volume 91.9 fL (78.0-98.0); Mean Platelet Volume 10.4 fL (7.4-10.4); Platelet Count 132 thou/uL (130-400); RBC Distribution Width 14.3 % (11.5-14.5); Red Blood Cell (RBC) Count 3.92 mill/uL (4.20-5.40); White Blood Cell (WBC) Count 10.5 thou/uL (4.8-10.8)
[2020-03-06] MEDS: HumaLOG 300 UNITS/3 ML VIAL SC PRN ×3 (06:10→17:38)
[2020-03-06] MEDS: Furosemide 40 MG/4 ML VIAL SLOW IVP SCH ×2 (06:10→15:38)
[2020-03-06] MEDS: Mometasone 200 MCG/Formoterol 5 MCG 120 PUFF INHALER INH SCH ×2 (07:57→18:36)
[2020-03-06] MEDS: Carvedilol 6.25 MG TAB PO SCH ×2 (08:47→16:37)
[2020-03-06] MEDS: Lisinopril 5 MG TAB PO SCH (08:47)
[2020-03-06] MEDS: Amlodipine 10 MG TAB PO SCH (08:47)
[2020-03-06] MEDS: Potassium Chloride 20 MEQ TAB PO SCH (08:47)
[2020-03-06] MEDS: Ferrous Sulfate 325 MG TAB PO SCH ×2 (08:47→16:37)
[2020-03-06] MEDS: predniSONE 20 MG TAB PO SCH (08:48)
[2020-03-06] MEDS: Aspirin Chewable 81 MG TAB PO SCH (08:48)
[2020-03-06] MEDS: Azithromycin 250 MG TAB PO SCH (08:49)
[2020-03-06] MEDS: Enoxaparin Sodium 40 MG/0.4 ML SYRINGE SC SCH (08:50)
[2020-03-06] MEDS: Insulin Glargine 30 UNITS in Pre-Filled Syringe 1 EACH SC SCH (08:51)
--- NOTE | 2020-03-06 10:00 | PRG ---
DATE OF SERVICE: SUBJECTIVE: The patient is doing better, wants to go home. OBJECTIVE: VITAL SIGNS: Temperature 98.0, pulse 80, respirations 14, O2 saturation 96% on 3 L, blood pressure 139/65. HEENT: Unremarkable. NECK: No JVD. LUNGS: She has slightly diminished breath sounds, left base compared to right. CARDIAC: S1 and S2 regular. ABDOMEN: Soft. EXTREMITIES: No edema. ASSESSMENT: 1. Congestive heart failure with a chronic left-sided pleural effusion which oscillates with her volume status. 2. Chronic obstructive pulmonary disease. PLAN: Would continue to diurese. Does not need a thoracentesis as it will not make much difference in her management. Job ID: [id number]
--- NOTE | 2020-03-06 14:50 | PDOC.HOSPP ---
- Subjective Encounter Date: 03/06/20 Subjective: The patient was seen and examined. Her condition is improving, however, she is still requiring more oxygen than her baseline. She cannot participate in normal activities as she is at her baseline. She is still requiring IV diuretics and would need to continue her hospitalization. - Objective Vital Signs & Weight: Vital Signs (12 hours) Temp Pulse Resp BP BP BP Pulse Ox 03/06/20 14:15 97 18 96 03/06/20 11:18 98.7 F 84 20 119/57 L 96 03/06/20 10:43 82 18 94 L 03/06/20 07:54 80 14 96 03/06/20 07:25 98 F 85 20 139/65 97 03/06/20 03:44 98.4 F 84 18 135/64 96 03/06/20 03:36 98.2 F 84 18 135/64 94 L Weight Weight 205 lb I&O: 03/05/20 03/06/20 03/07/20 06:59 06:59 06:59 Intake Total 720 960 Output Total 1800 800 Balance -1080 160 Result Diagrams: 03/06/20 03:36 03/06/20 03:36 Additional Labs: Accuchecks 03/06/20 03/06/20 03/05/20 10:43 05:41 20:09 POC Glucose 286 H 282 H 386 H 03/05/20 16:45 POC Glucose 231 H Hospitalist ROS - Medication Medications: Active Medications Generic Name Dose Route Start Last Admin Trade Name Freq PRN Reason Stop Dose Admin Albuterol/Ipratropium 3 ml 03/04/20 15:00 03/06/20 14:15 Duoneb NEB 3 ml [id number] WONG Administration Amlodipine Besylate 10 mg 03/04/20 09:00 03/06/20 08:47 Norvasc PO 10 mg DAILY WONG Administration Aspirin 81 mg 03/04/20 09:00 03/06/20 08:48 Aspirin Chewable PO 81 mg DAILY WONG Administration Atorvastatin Calcium 20 mg 03/03/20 21:00 03/05/20 20:48 Lipitor PO 20 mg HS WONG Administration Azithromycin 500 mg 03/05/20 09:00 03/06/20 08:49 Zithromax PO 03/08/20 09:01 500 mg DAILY WONG Administration Carvedilol 6.25 mg 03/04/20 08:00 03/06/20 08:47 Coreg PO 6.25 mg BID-WM WONG Administration Enoxaparin Sodium 40 mg 03/05/20 09:00 03/06/20 08:50 Lovenox SC 40 mg 0900 WONG Administration Ferrous Sulfate 325 mg 03/04/20 08:00 03/06/20 08:47 Feosol PO 325 mg BID-WM WONG Administration Hydralazine HCl 10 mg 03/04/20 05:42 03/04/20 06:36 Apresoline SLOW IVP 10 mg Q6H PRN Administration SBP > 180 Insulin Glargine 30 units/ 0.3 mls @ 0 mls/hr 03/05/20 09:00 03/06/20 08:51 Miscellaneous Medication SC 0.3 mls QAM WONG Administration Insulin Human Lispro 0 units 03/04/20 10:51 03/06/20 11:52 Humalog SC 6 unit .MODERATE SLIDING SC PRN Administration Moderate Correctional Scale Lisinopril 5 mg 03/04/20 09:00 03/06/20 08:47 Zestril PO 5 mg QAM WONG Administration Mometasone Furoate/Formoterol Fumar 2 puff 03/04/20 06:30 03/06/20 07:57 Dulera 200 Mcg/5 Mcg Inhaler INH 2 puff BID-RT WONG Administration Pantoprazole Sodium 40 mg 03/04/20 09:00 03/06/20 08:49 Protonix PO 40 mg DAILY WONG Administration Potassium Chloride 20 meq 03/04/20 08:00 03/06/20 08:47 K-Dur PO 20 meq QAM-WM WONG Administration - Exam General Appearance: awake alert ENT: normocephalic atraumatic Neck: supple Heart: RRR Respiratory: normal chest expansion, rhonchi, wheezes Gastrointestinal: soft, non-tender, non-distended, normal bowel sounds Neurological: cranial nerve grossly intact, no focal deficits Hosp A/P (1) CHF exacerbation Code(s): I50.9 - HEART FAILURE, UNSPECIFIED Status: Acute (2) Atrial fibrillation Code(s): I48.91 - UNSPECIFIED ATRIAL FIBRILLATION Status: Acute (3) COPD exacerbation Code(s): J44.1 - CHRONIC OBSTRUCTIVE PULMONARY DISEASE W (ACUTE) EXACERBATION Status: Acute (4) Acute respiratory failure with hypercapnia Code(s): J96.02 - ACUTE RESPIRATORY FAILURE WITH HYPERCAPNIA Status: Acute (5) DM type 2 (diabetes mellitus, type 2) Status: Chronic - Plan Acute on chronic respiratory failure with hypoxia due to COPD and CHF exacerbations. The patient remains hypoxic requiring more oxygen than her baseline. She is tolerating diuresis well. We will reduce the dose of Lasix due to worsening kidney function. Continue nebulizer treatments, antibiotics, and corticosteroids.
[2020-03-06] MEDS ORDERED: Furosemide 20 MG/2 ML VIAL SLOW IVP SCH (15:00)
[2020-03-06] MEDS: Atorvastatin Calcium 20 MG TAB PO SCH (20:41)
[2020-03-07 04:58] LABS: #Monocytes 0.4 thou/uL (0.11-0.59); #Neutrophils 10.3 thou/uL (1.40-6.50); %Eosinophils 0.3 % (0.0-10.0); %Lymphocytes 8.5 % (21.0-51.0); %Monocytes 3.7 % (0.0-10.0); %Neutrophils 87.5 % (42.0-75.0); Hemoglobin 11.4 g/dL (12.0-16.0); Mean Corpuscular HGB CONC 30.1 g/dL (32.0-36.0); Mean Corpuscular Hemoglobin 27.3 pg (27.0-31.0); Mean Corpuscular Volume 90.6 fL (78.0-98.0); Mean Platelet Volume 9.9 fL (7.4-10.4); Platelet Count 163 thou/uL (130-400); RBC Distribution Width 14.3 % (11.5-14.5); Red Blood Cell (RBC) Count 4.17 mill/uL (4.20-5.40); White Blood Cell (WBC) Count 11.7 thou/uL (4.8-10.8)
[2020-03-07 05:05] LABS: INR-International Normal Ratio 1.1; Prothrombin Time 13.8 sec (12.0-14.7)
[2020-03-07 05:17] LABS: Anion Gap 15 mmol/L (10-20); BUN (Urea Nitrogen) 39 mg/dL (9.8-20.1); Calc. Creatinine Clearance 55 mL/min (70-130); Calcium 9.2 mg/dL (7.8-10.44); Carbon Dioxide 36 mmol/L (23-31); Chloride 92 mmol/L (98-107); Estimated GFR-MDRD 42; Glucose 217 mg/dL (83-110); Potassium 4.7 mmol/L (3.5-5.1); Sodium 138 mmol/L (136-145)
[2020-03-07] MEDS: HumaLOG 300 UNITS/3 ML VIAL SC PRN ×2 (05:54→11:39)
[2020-03-07] MEDS ORDERED: Furosemide 20 MG/2 ML VIAL SLOW IVP SCH (06:00)
[2020-03-07] MEDS: Mometasone 200 MCG/Formoterol 5 MCG 120 PUFF INHALER INH SCH (07:46)
[2020-03-07] MEDS ORDERED: predniSONE 20 MG TAB PO SCH (08:00)
[2020-03-07] MEDS: Carvedilol 6.25 MG TAB PO SCH (08:16)
[2020-03-07] MEDS: Potassium Chloride 20 MEQ TAB PO SCH (08:16)
[2020-03-07] MEDS: Amlodipine 10 MG TAB PO SCH (08:16)
[2020-03-07] MEDS: Ferrous Sulfate 325 MG TAB PO SCH (08:16)
[2020-03-07] MEDS: Aspirin Chewable 81 MG TAB PO SCH (08:17)
[2020-03-07] MEDS: Enoxaparin Sodium 40 MG/0.4 ML SYRINGE SC SCH (08:17)
[2020-03-07] MEDS: Azithromycin 250 MG TAB PO SCH (08:17)
[2020-03-07] MEDS: Lisinopril 5 MG TAB PO SCH (08:17)
[2020-03-07] MEDS: Insulin Glargine 30 UNITS in Pre-Filled Syringe 1 EACH SC SCH (08:18)
[2020-03-07 11:38] VITALS: BP 125/56; TEMP 98.5
--- NOTE | 2020-03-07 13:26 | PRG ---
DATE OF SERVICE: 03/07/2020 SUBJECTIVE: Ms. Vazquez states she is doing much better. She is at or near baseline. She has diuresed. She has received nebulizer treatments and is improving. OBJECTIVE: VITAL SIGNS: Blood pressure 125/56, pulse 78, temperature 98.5. Physical exam deferred. PERTINENT LABORATORY DATA: Hemoglobin 11.4, hematocrit 37.8. IMPRESSION: 1. Chronic obstructive pulmonary disease exacerbation. 2. Atrial fibrillation. 3. Acute on chronic diastolic heart failure. RECOMMENDATIONS: Ms. Vazquez appears to be improving. She is at or near baseline. Continue amlodipine, aspirin in addition to carvedilol. She has been against the use of anticoagulation therapy due to previous bleeding issues. She understands the risk of stroke. Plan is follow up as an outpatient. Job ID: [id number]
== END 2020-03-07 13:02 | disposition home health service (06) | DRG 291 ==
LOC: ERS 15:48 → ERHOLD 18:47 → 2NO 22:05 → OBSVTOIN 03-05 14:27
PROVIDERS: ADMIT Internal Medicine; ATTEND Internal Medicine
DX: I11.0 Hypertensive heart disease with heart failure (principal); J96.21 Acute and chronic respiratory failure with hypoxia; J96.22 Acute and chronic respiratory failure with hypercapnia; J44.1 Chronic obstructive pulmonary disease with (acute) exacerbation; J90 Pleural effusion, not elsewhere classified; F32.9 Major depressive disorder, single episode, unspecified; I50.33 Acute on chronic diastolic (congestive) heart failure; I25.10 Atherosclerotic heart disease of native coronary artery without angina pectoris; E11.9 Type 2 diabetes mellitus without complications; I48.91 Unspecified atrial fibrillation; E78.5 Hyperlipidemia, unspecified; M19.90 Unspecified osteoarthritis, unspecified site; D64.9 Anemia, unspecified; I35.0 Nonrheumatic aortic (valve) stenosis; Z95.1 Presence of aortocoronary bypass graft; Z90.49 Acquired absence of other specified parts of digestive tract; Z98.42 Cataract extraction status, left eye; Z98.41 Cataract extraction status, right eye; Z87.891 Personal history of nicotine dependence; Z79.01 Long term (current) use of anticoagulants; Z93.3 Colostomy status
CPT/HCPCS: 36415; 36416; 71045; 80048; 80053; 82310; 82553; 83880; 84484; 85025; 85610; 93005; 93306; 94640; 94760; 96372; 96374; 96375; 96376; G0378; J0360; J1650; J1815; J1940; J7512; J7620

== ENCOUNTER 2020-03-11 08:09 | Inpatient (IN) | payer MEDICARE, MEDICAID, OTHER ==
--- NOTE | 2020-03-11 08:39 | RAD ---
EXAM: Single view of the chest HISTORY: Respiratory failure status post intubation COMPARISON: 03/03/2020 FINDINGS: Single view of the chest shows an enlarged but stable cardiomediastinal silhouette. Athero sclerotic calcifications are seen in the aorta. The patient is status post sternotomy. An endotracheal tube is seen with its tip between the clavicles. An NG tube courses off the inferior asp ect of the film. There is a small left pleural effusion. Multifocal infiltrates are seen in the lungs. Degenerative changes are seen in the spine. IMPRESSION: 1. Appropriate position of lines and tubes 2. Multifocal pneumonia 3. Left pleural effusion
[2020-03-11 08:40] LABS: Actual Bicarbonate (HCO3a) 32.7 mEq/L (22-28); Analyzer IN Cardio ER; Base Excess (BEa) 6.7 mEq/L (-2.0 to +3.0); CO2 Tension 53.8 mmHg (35.0-45.0); Calcium, Ionized (arterial) 1.14 mmol/L (1.12-1.30); Carboxyhemoglobin (COHb) 0.1 gm% (0.0-3.0); Hemoglobin (Hb) 11.8 g/dL (12.0-16.0); O2 Tension (PaO2), arterial 105.5 mmHg (> 70.0); Potassium - ABG Lab 5.36 mmol/L (3.70-5.30)
[2020-03-11 08:52] LABS: #Eosinphils 0.1 thou/uL (0.0-0.7); #Lymphocytes 0.5 thou/uL (1.20-3.40); #Monocytes 0.4 thou/uL (0.11-0.59); #Neutrophils 10.3 thou/uL (1.40-6.50); %Basophils 0.1 % (0.0-1.0); %Eosinophils 0.6 % (0.0-10.0); %Lymphocytes 4.2 % (21.0-51.0); %Monocytes 3.5 % (0.0-10.0); %Neutrophils 91.6 % (42.0-75.0); Hemoglobin 11.3 g/dL (12.0-16.0); Mean Corpuscular HGB CONC 30.2 g/dL (32.0-36.0); Mean Corpuscular Hemoglobin 28.3 pg (27.0-31.0); Mean Corpuscular Volume 93.6 fL (78.0-98.0); Mean Platelet Volume 9.2 fL (7.4-10.4); Platelet Count 217 thou/uL (130-400); RBC Distribution Width 14.3 % (11.5-14.5); Red Blood Cell (RBC) Count 3.99 mill/uL (4.20-5.40); White Blood Cell (WBC) Count 11.3 thou/uL (4.8-10.8)
[2020-03-11] MEDS ORDERED: Propofol 1,000 MG/100 ML VIAL IV ONE (08:52)
[2020-03-11 09:10] LABS: INR-International Normal Ratio 1.1; Prothrombin Time 14.3 sec (12.0-14.7)
[2020-03-11] MEDS ORDERED: cefTRIAXone\\ROCEPHIN 2 GM VIAL ONE (09:13)
[2020-03-11] MEDS ORDERED: Azithromycin 500 MG VIAL ONE (09:13)
[2020-03-11 09:18] LABS: PTT 17.3 sec (22.9-36.1)
[2020-03-11 09:33] LABS: ALT (SGPT) 33 U/L (8-55); AST (SGOT) 33 U/L (5-34); Albumin 3.6 g/dL (3.4-4.8); Alkaline Phosphatase 136 U/L (40-110); BUN (Urea Nitrogen) 38 mg/dL (9.8-20.1); Bilirubin, Total 0.3 mg/dL (0.2-1.2); CK (CPK) 89 U/L (29-168); Calc. Creatinine Clearance 0 mL/min (70-130); Estimated GFR-MDRD 46; Globulin 2.7 g/dL (2.4-3.5); Glucose 312 mg/dL (83-110); Lipase 26 U/L (8-78); Magnesium 1.9 mg/dL (1.6-2.6); Protein, Total 6.3 g/dL (6.0-8.3)
[2020-03-11 09:43] LABS: Anion Gap 16 mmol/L (10-20); Carbon Dioxide 36 mmol/L (23-31); Chloride 94 mmol/L (98-107); Potassium 6.3 mmol/L (3.5-5.1); Sodium 140 mmol/L (136-145)
[2020-03-11 09:51] LABS: CKMB 9.5 ng/mL (0-6.6)
[2020-03-11 10:04] LABS: Puncture Site RRA
[2020-03-11] MEDS ORDERED: Ondansetron PF 4 MG/2 ML Vial ONE (10:13)
--- NOTE | 2020-03-11 10:50 | CT ---
HEAD CT WITHOUT CONTRAST: HISTORY: Unresponsive patient. Found down. COVID positive. COMPARISON: None. FINDINGS: No parenchymal hemorrhage. No extraaxial hematoma. No midline shift. Basilar cisterns are patent. There are white matter hypodensities due to chronic small-vessel ischemic change. There is loss of c ortical regan-white matter differentiation involving the right temporal and parietal lobe as well as t he right frontal lobe near the vertex. Acute right MCA distribution infarct is suspected. Calvarium is intact. Adequate aeration of the sinuses and mastoid air cells. Remote insult with ass ociated encephalomalacia and gliosis involving the posterior left and right cerebrum. IMPRESSION: 1. 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 2. Age-appropriate atrophy. 3. Chronic small-vessel ischemic change of the white matter. 4. Encephalomalacia and gliosis involving the right and left cerebrum due to remote insult. Results of the study were discussed with Dr. Atwood 03/11/2020 at 10:05 a.m. CODE CR POS: [facility]
[2020-03-11] MEDS ORDERED: Enoxaparin Sodium 100 MG/ML SYRINGE ONE (11:25)
--- NOTE | 2020-03-11 11:29 | CT ---
CTA HEAD AND NECK WITH CONTRAST: CTA HEAD WITH CONTRAST: Axial tomograms were obtained with multiplanar reconstruction and 3d post processing following angio protocol. INDICATION: Stroke. The patient was found unresponsive. COVID positive. FINDINGS: CT head shows evidence of acute infarct in the right frontoparietal region. Old infarct in this area is also noted with areas of encephalomalacia. FINDINGS: The intracranial internal carotid arteries are patent and symmetric. Atherosclerotic calcifications are seen in the cavernous ICAs bilaterally without evidence of significant stenosis. Both anterior cerebral arteries are patent and symmetric. M1 segment of both middle cerebral arteries appear patent and symmetric with no evidence of stenosis. There are decreased peripheral M3 branches on the right in the region of the infarct indicating moira e peripheral right MCA occlusions. Basilar artery is patent. Both posterior cerebral arteries are patent and symmetric. IMPRESSION: No evidence of proximal cerebral artery stenosis or occlusion. Decreased M3 branches on the right in the area of infarct. CTA NECK: Axial tomograms obtained with multiplanar reconstruction and 3D post processing. INDICATION: Stroke protocol. FINDINGS: No evidence of stenosis at the origin of the arch vessels. Both common carotid arteries show mild atherosclerotic change. No evidence of common carotid artery stenosis. Atherosclerotic calcification and soft plaque seen in both bulbs and both proximal ICAs. This result s in moderate stenosis in the proximal right ICA. The right ICA lumen is irregular due to this ather osclerotic change and there is luminal narrowing which appears to approach 50% diameter by NASCENT CR ITERIA. The right ICA is tortuous above this area of stenosis and there is a focal kink in this osiel ry above the bulb. The left ICA shows atherosclerotic change and mild stenosis which does not appear to reach 50% diamet er by NASCENT criteria. Review of the vertebral arteries shows atherosclerotic change at the origin of the right vertebral wi th calcification. The right vertebral appears occluded proximally but does reconstitute in the mid c ervical spine region. Diffuse atherosclerotic change is seen throughout this vessel and this vessel is small throughout its reconstituted course. The left vertebral is patent throughout its course wit h mild atherosclerotic change. SOFT TISSUES: No mass or adenopathy. There is a multinodular thyroid gland noted. Images through the lung apices show evidence of bilateral effusions and lung atelectasis. IMPRESSION: 1. Atherosclerotic changes at both bulbs. There is evidence of hemodynamically significant stenosis in the proximal right internal carotid artery and mild stenosis in the proximal left internal caroti d artery. Suggest a followup catheter angiogram study for better delineation of the luminal stenosis . 2. 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 Th is vessel remains small with partial reconstitution in mid and distal regions.
[2020-03-11 11:30] LABS: Bilirubin Negative (Negative); Blood, Urine Negative (Negative); Clarity Clear (Clear); Glucose, Urine (Dipstick) 70 mg/dL (Negative); Ketone, Urine Negative (Negative); Leukocyte 75 Leu/uL (Negative); Nitrite Negative (Negative); Protein, Urine (Dipstick) 20 mg/dL (Neg-Trace); RBC/HPF 0-3 HPF (0-3); Specific Gravity, Urine 1.016 (1.002-1.036); Squamous Epithelial 0-3 HPF (0-3); Urobilinogen Normal mg/dL (Less than 2)
[2020-03-11] MEDS ORDERED: Acetaminophen 650 MG Suppository PR PRN (11:38)
[2020-03-11] MEDS ORDERED: Ondansetron PF 4 MG/2 ML Vial IVP PRN (11:38)
[2020-03-11 11:40] LABS: Bacteria/HPF 1+ HPF (None Seen)
[2020-03-11] MEDS ORDERED: Dextrose 50% Abboject 50 ML SYRINGE SLOW IVP PRN (11:57)
[2020-03-11] MEDS ORDERED: Insulin Regular 300 UNITS/3 ML VIAL IVP SCH (12:00)
[2020-03-11] MEDS ORDERED: Dextrose 50% Abboject 50 ML SYRINGE ONE (12:05)
[2020-03-11] MEDS ORDERED: Insulin Regular 300 UNITS/3 ML VIAL ONE (12:05)
[2020-03-11 12:25] LABS: Troponin I 2.329 ng/mL (< 0.028)
--- NOTE | 2020-03-11 13:30 | HP ---
HISTORY: The patient recently discharged from the hospital after an episode of CHF exacerbation, atrial fibrillation, COPD exacerbation, acute respiratory failure with hypercapnia, diabetes mellitus number 2. Unfortunately I find no discharge note on the chart. Today she was found unresponsive by family. lugger were called. She was found to have an O2 saturation in the 60s. She was intubated, brought to the emergency room. She is currently intubated, sedated. PAST MEDICAL HISTORY: In addition to that mentioned in the present illnesses, coronary artery disease, long history of COPD from smoking, hypertension, diabetes mellitus type 2. PAST SURGICAL HISTORY: Coronary artery bypass graft, appendectomy, right lumpectomy, cataract surgery. ALLERGIES: NO KNOWN DRUG ALLERGIES. FAMILY HISTORY: Mother at 73, CHF, stroke. Father of an [place] at 52. SOCIAL HISTORY: Full code status. Quit smoking within the last year. No alcohol. DISCHARGE MEDICINES: On 03/07/2020 1. Amlodipine 10 mg a day. 2. Zocor 40 mg a day. 3. Coreg 6.25 mg twice a day. 4. Protonix 40 mg a day. 5. Potassium chloride 20 mEq a day. 6. Albuterol 2 puffs q.4 hours p.r.n. 7. Budesonide. 8. Formoterol 160/4.5 two puffs twice a day. 9. Insulin detemir 25 units daily subcu. 10. Aspirin 81 mg a day. 11. Sitagliptin metformin/Janumet XR 1 tablet every evening. 12. Lisinopril 1 tablet daily. 13. Lasix 40 mg p.o. b.i.d. REVIEW OF SYSTEMS: Unobtainable. The patient is intubated. PHYSICAL EXAMINATION: VITAL SIGNS: Blood pressure 153/98, pulse 89, respirations 20 on the ventilator, temperature approximately 96, O2 saturation 96-100 on the ventilator. GENERAL: She is nonresponsive. HEAD, EYES, EARS, NOSE, AND THROAT: Reveal pupils round. Sclerae white. Negative doll's eyes. Tympanic membranes clear. Nose clear. Orally intubated. NECK: No jugular venous distention, adenopathy, or thyromegaly. CHEST: Adequate breath sounds. Remarkably few rhonchi considering her chest x-ray, scattered, nonfocal. HEART: Irregular rate and rhythm. First, second heart sounds variable. ABDOMEN: Soft. Bowel sounds markedly diminished. No tenderness. No bruit. No mass. EXTREMITIES: 2+ edema. No cyanosis or clubbing. Pulses, carotid and radial pulses symmetric. Femoral and pedal pulses diminished. SKIN: Warm and dry. HEME/LYMPH: No tender or swollen lymph nodes, axilla, inguinal, or cervical area. NEUROLOGICAL: Faces are symmetric. Deep tendon reflexes are symmetric. Toes are downgoing. DIAGNOSTIC DATA: Chest x-ray reveals left pleural effusion, cardiomegaly, diffuse opacities, postsurgical changes personally reviewed. Brain CT revealed loss of cortical regan-white matter differentiation, right temporoparietal suggestive of right MCA infarct. Personally reviewed. CT angio is available, has not been interpreted. EKG will evaluate when I am able to locate it. LABORATORY DATA: PTT 17.3, PT 1.1. Arterial blood gas: pH 7.4, CO2 53.8, O2 105.5 on 80% O2. Serology for COVID pending. Chemistries: Creatinine 1.15, BUN 38, sodium 140, potassium 6.3, chloride 94, CO2 36, BUN 38, glucose 312. Liver functions unremarkable. CK-MB 9.5, troponin 0.617. BNP 890. ADMITTING DIAGNOSES: Respiratory failure, acute, combined; probable COVID pneumonia; diabetes mellitus type 2 with chronic kidney disease stage 3; hyperkalemia; coronary artery disease. PLAN: Admit to coronary care unit. Consult senior manager creative services, steroids Accu-Cheks sliding scale, possible IV insulin. We will give a dose of IV insulin now for hyperkalemia. Prognosis is guarded. Job ID: [id number]
[2020-03-11 13:43] LABS: Anion Gap 14 mmol/L (10-20); BUN (Urea Nitrogen) 37 mg/dL (9.8-20.1); Calc. Creatinine Clearance 0 mL/min (70-130); Calcium 8.9 mg/dL (7.8-10.44); Carbon Dioxide 33 mmol/L (23-31); Chloride 97 mmol/L (98-107); Estimated GFR-MDRD 46; Glucose 289 mg/dL (83-110); Potassium 5.5 mmol/L (3.5-5.1); Sodium 138 mmol/L (136-145)
[2020-03-11] MEDS ORDERED: Lorazepam 2 MG/ML VIAL SLOW IVP PRN (13:44)
[2020-03-11] MEDS ORDERED: fentaNYL Citrate/PF 2,000 MCG in Sodium Chloride 0.9% 60 ML IV SCH (13:44)
[2020-03-11] MEDS ORDERED: Propofol BOLUS 1,000 MG/100 ML VIAL IV PRN (13:44)
[2020-03-11] MEDS ORDERED: DISCONTINUE PREVIOUS NARCOTIC PAIN MEDICATIONS AND BENZODIAZEPINES FS SCH (13:44)
[2020-03-11] MEDS ORDERED: Fentanyl BOLUS 250 ML IVPB PRN (13:44)
[2020-03-11] MEDS ORDERED: Iopamidol-370 76% 500 ML 1 ML ONE (13:59)
[2020-03-11 15:56] LABS: Troponin I 5.148 ng/mL (< 0.028)
[2020-03-11] MEDS: Sodium Chloride 0.9% 1,000 ML IV SCH (16:03)
[2020-03-11] MEDS: Dexamethasone 10 MG/ML VIAL SLOW IVP SCH (16:05)
[2020-03-11 16:17] LABS: #Eosinphils 0.1 thou/uL (0.0-0.7); #Lymphocytes 1.2 thou/uL (1.20-3.40); #Monocytes 0.8 thou/uL (0.11-0.59); #Neutrophils 10.7 thou/uL (1.40-6.50); %Basophils 0.2 % (0.0-1.0); %Eosinophils 0.4 % (0.0-10.0); %Lymphocytes 9.6 % (21.0-51.0); %Monocytes 6.2 % (0.0-10.0); %Neutrophils 83.7 % (42.0-75.0); Mean Corpuscular HGB CONC 29.8 g/dL (32.0-36.0); Mean Corpuscular Hemoglobin 27.8 pg (27.0-31.0); Mean Corpuscular Volume 93.3 fL (78.0-98.0); Mean Platelet Volume 9.1 fL (7.4-10.4); Platelet Count 212 thou/uL (130-400); RBC Distribution Width 14.4 % (11.5-14.5); Red Blood Cell (RBC) Count 4.31 mill/uL (4.20-5.40); White Blood Cell (WBC) Count 12.7 thou/uL (4.8-10.8)
[2020-03-11] MEDS: Propofol 1,000 MG/100 ML VIAL IV PRN (16:34)
[2020-03-11 16:43] LABS: Hypochromia SLIGHT = 6-15 cells (100X) (0-5/hpf); MDiff Complete? YES; Platelet Morphology Comment Appears Adequate
[2020-03-11 16:55] LABS: Anion Gap 19 mmol/L (10-20); BUN (Urea Nitrogen) 36 mg/dL (9.8-20.1); Calc. Creatinine Clearance 0 mL/min (70-130); Calcium 9.4 mg/dL (7.8-10.44); Carbon Dioxide 29 mmol/L (23-31); Chloride 97 mmol/L (98-107); Estimated GFR-MDRD 49; Glucose 202 mg/dL (83-110); Potassium 5.2 mmol/L (3.5-5.1); Sodium 140 mmol/L (136-145)
--- NOTE | 2020-03-11 17:11 | PDOC.EVN ---
Event Note - Event Note Event Note: CVA and NSTEMI to admit Dx
--- NOTE | 2020-03-11 17:44 | CON ---
DATE OF CONSULTATION: HISTORY OF PRESENT ILLNESS: Tatiana Vazquez is a 79-year-old obese female, who was just recently discharged from the hospital. She presented to the hospital obtunded. Family members noticed that she was found down with shallow respiration. ER doctor upon arrival intubated. Her sats are about 60% on 4 L. Chest x-ray shows there is chronic left-sided pleural effusion. PAST MEDICAL HISTORY: Extensively outlined and pertinent for COPD, CHF, diabetes, chronic left pleural effusion, and breast carcinoma. PAST SURGICAL HISTORY: Bypass x3, appendix, lumpectomy right, skin cancer. SOCIAL HISTORY: Alcohol, none. Former smoker, a pack a day, quit smoking recently. She was admitted on 03/05/2020. MEDICATIONS: She has home oxygen at home. Additional medicine includes: 1. Metformin. 2. Janumet. 3. Simvastatin 40. 4. Lisinopril. 5. Levemir. 6. Lasix 40. 7. Coreg 3.25. 8. Symbicort. 9. Zithromax. 10. Amlodipine 10. REVIEW OF SYSTEMS: I am not able to obtain any review of systems. PHYSICAL EXAMINATION: VITAL SIGNS: Temperature 98, blood pressure 143/84, sats 100% on present vent settings, 60% FiO2, PEEP of 5. CHEST: Decreased breath sounds. No wheezing. CARDIAC: Normal S1, S2. No gallops. ABDOMEN: No masses. LABORATORY DATA: Her creatinine 1.4, glucose 289. Troponin is elevated. Chest x-ray, chronic pleural effusion. CT angiogram shows a possible new CVA. Significant stenosis in the right internal carotid. PO2 is 105, pCO2 of 53, pH 7.40. BNP is 9000. IMPRESSION: 1. Respiratory failure, possible new CVA. 2. Chronic obstructive pulmonary disease. 3. Chronic pleural effusion. 4. Renal failure. PLAN: Son wants apparently DNR. I have started neb treatments. Continue supportive care. We will notify Dr. Richardson who has seen in the past. This is an ICU, 45 minutes of critical care time. Job ID: [id number]
[2020-03-11] MEDS ORDERED: Enoxaparin Sodium 40 MG/0.4 ML SYRINGE SC SCH (21:00)
[2020-03-11] MEDS: Enoxaparin Sodium 100 MG/ML SYRINGE SC SCH (22:04)
[2020-03-11 22:26] LABS: Anion Gap 20 mmol/L (10-20); BUN (Urea Nitrogen) 33 mg/dL (9.8-20.1); Calc. Creatinine Clearance 0 mL/min (70-130); Calcium 9.3 mg/dL (7.8-10.44); Carbon Dioxide 28 mmol/L (23-31); Chloride 97 mmol/L (98-107); Estimated GFR-MDRD 48; Glucose 219 mg/dL (83-110); Potassium 4.9 mmol/L (3.5-5.1); Sodium 140 mmol/L (136-145)
[2020-03-12] MEDS: Propofol 1,000 MG/100 ML VIAL IV PRN ×5 (00:58→17:59)
[2020-03-12] MEDS: Dexamethasone 10 MG/ML VIAL SLOW IVP SCH (01:02)
[2020-03-12 01:07] VITALS: BMI 36.6
[2020-03-12 03:46] LABS: #Lymphocytes 0.7 thou/uL (1.20-3.40); #Monocytes 0.2 thou/uL (0.11-0.59); #Neutrophils 9.4 thou/uL (1.40-6.50); %Eosinophils 0.2 % (0.0-10.0); %Lymphocytes 6.3 % (21.0-51.0); %Monocytes 1.6 % (0.0-10.0); %Neutrophils 91.9 % (42.0-75.0); Hemoglobin 11.9 g/dL (12.0-16.0); Mean Corpuscular HGB CONC 30.8 g/dL (32.0-36.0); Mean Corpuscular Volume 90.9 fL (78.0-98.0); Mean Platelet Volume 9.6 fL (7.4-10.4); Platelet Count 238 thou/uL (130-400); RBC Distribution Width 15.1 % (11.5-14.5); Red Blood Cell (RBC) Count 4.23 mill/uL (4.20-5.40); White Blood Cell (WBC) Count 10.3 thou/uL (4.8-10.8)
[2020-03-12 04:09] LABS: Anion Gap 23 mmol/L (10-20); BUN (Urea Nitrogen) 36 mg/dL (9.8-20.1); Calc. Creatinine Clearance 47 mL/min (70-130); Calcium 9.4 mg/dL (7.8-10.44); Carbon Dioxide 24 mmol/L (23-31); Chloride 98 mmol/L (98-107); Estimated GFR-MDRD 39; Glucose 321 mg/dL (83-110); Potassium 5.1 mmol/L (3.5-5.1); Sodium 140 mmol/L (136-145)
[2020-03-12] MEDS ORDERED: Dextrose 50% Abboject 50 ML SYRINGE IVP PRN (04:32)
[2020-03-12] MEDS ORDERED: Dextrose 5% in Water 1,000 ML IV PRN (04:32)
[2020-03-12] MEDS: HumaLOG 300 UNITS/3 ML VIAL SC PRN ×3 (06:09→18:01)
[2020-03-12 07:58] LABS: Actual Bicarbonate (HCO3a) 24.9 mEq/L (22-28); Base Excess (BEa) 3.2 mEq/L (-2.0 to +3.0); CO2 Tension 29.4 mmHg (35.0-45.0); Calcium, Ionized (arterial) 1.11 mmol/L (1.12-1.30); Carboxyhemoglobin (COHb) 0.4 gm% (0.0-3.0); Hemoglobin (Hb) 12.4 g/dL (12.0-16.0); O2 Tension (PaO2), arterial 64.3 mmHg (> 70.0)
--- NOTE | 2020-03-12 08:07 | RAD ---
EXAM: Single view of the chest HISTORY: Ventilated patient with respiratory failure COMPARISON: 03/11/2020 FINDINGS: Single view of the chest shows an enlarged but stable cardiomediastinal silhouette. The pa tient is status post sternotomy. There are bilateral pleural effusions, left greater than right. The endotracheal tube and NG tube are unchanged in position. The bones are unremarkable IMPRESSION: Stable exam
[2020-03-12 08:33] LABS: pH, Arterial 7.55 (7.35-7.45)
[2020-03-12 08:34] LABS: Puncture Site LRA
--- NOTE | 2020-03-12 08:42 | PDOC.HOSPP ---
- Subjective Encounter Date: 03/12/20 Encounter Time: 08:38 Subjective: intubated, sedated - Objective Vital Signs & Weight: Vital Signs (12 hours) Temp Pulse Resp BP Pulse Ox 03/12/20 07:33 100 20 138/76 97 03/12/20 06:00 20 03/12/20 04:00 99.6 F 20 03/12/20 02:00 20 03/12/20 00:00 100 F H 20 03/11/20 23:58 95 20 98 03/11/20 22:00 20 Weight Weight 187 lb 9.814 oz Most Recent Monitor Data Heart Rate from ECG 108 NIBP 138/76 NIBP BP-Mean 96 Respiration from ECG 20 SpO2 98 I&O: 03/11/20 03/12/20 03/13/20 06:59 06:59 06:59 Intake Total 1136 Output Total 1060 Balance 76 Result Diagrams: 03/12/20 03:38 03/12/20 03:38 Additional Labs: Accuchecks 03/11/20 12:18 POC Glucose 224 H Radiology Reviewed by me: Yes (cxr-cardiomegaly, L pleural effusion, ET tube) Hospitalist ROS - Medication Medications: Active Medications Generic Name Dose Route Start Last Admin Trade Name Freq PRN Reason Stop Dose Admin Albuterol/Ipratropium 3 ml 03/11/20 19:00 03/12/20 07:33 Duoneb NEB 3 ml [id number] WONG Administration Dexamethasone 10 mg 03/11/20 14:00 03/12/20 01:02 Decadron SLOW IVP 10 mg 0200,1400 WONG Administration Enoxaparin Sodium 90 mg 03/11/20 21:00 03/11/20 22:04 Lovenox SC 90 mg 0900,2100 WONG Administration Sodium Chloride 1,000 mls @ 50 mls/hr 03/11/20 13:45 03/11/20 16:03 Normal Saline 0.9% IV 1,000 mls .Q20H WONG Administration Insulin Human Lispro 0 units 03/12/20 04:32 03/12/20 06:09 Humalog SC 11 unit .AGGRESSIVE SLIDING PRN Administration AGGRESSIVE SLIDING SCALE Protocol Propofol 1,000 mg 03/11/20 13:44 03/12/20 06:08 Diprivan IV 08/20/20 13:44 1,000 mg INF PRN Administration TO ACHIEVE GOAL RASS Protocol - Exam Neck: no JVD Heart: RRR, no murmur Respiratory - other findings: dull L base, non-focal OW-adequate BS Gastrointestinal: soft, non-tender, non-distended, normal bowel sounds Extremities: 1+ LE edema Hosp A/P (1) CVA (cerebral vascular accident) Code(s): I63.9 - CEREBRAL INFARCTION, UNSPECIFIED Status: Acute Qualifiers: CVA mechanism: thrombosis Precerebral and cerebral artery: middle cerebral artery Laterality of affected vessel: right Qualified Code(s): I63.311 - Cerebral infarction due to thrombosis of right middle cerebral artery (2) NSTEMI (non-ST elevated myocardial infarction) Code(s): I21.4 - NON-ST ELEVATION (NSTEMI) MYOCARDIAL INFARCTION Status: Acute (3) Acute respiratory failure with hypercapnia Code(s): J96.02 - ACUTE RESPIRATORY FAILURE WITH HYPERCAPNIA Status: Acute (4) CHF (congestive heart failure) Code(s): I50.9 - HEART FAILURE, UNSPECIFIED Status: Acute (5) COPD exacerbation Code(s): J44.1 - CHRONIC OBSTRUCTIVE PULMONARY DISEASE W (ACUTE) EXACERBATION Status: Acute (6) DM type 2 (diabetes mellitus, type 2) Status: Chronic Qualifiers: Diabetes mellitus longterm insulin use: with longterm use Diabetes mellitus complication status: with kidney complications Diabetes mellitus complication detail: with chronic kidney disease Chronic kidney disease stage : stage 3 (moderate) Qualified Code(s): E11.22 - Type 2 diabetes mellitus with diabetic chronic kidney disease; N18.3 - Chronic kidney disease, stage 3 ( moderate); Z79.4 - 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
--- NOTE | 2020-03-12 09:12 | PRG ---
DATE OF SERVICE: 03/12/2020 TIME SPENT: 35 minutes of critical care time. SUBJECTIVE: The patient remains intubated in the critical care unit. OBJECTIVE: VITAL SIGNS: Temperature is 99.6 with T-max 100.0, pulse 108, blood pressure 138/76, and O2 saturation 98%. Total intake 1136 and output 1060. HEENT: Unremarkable. NECK: No JVD. LUNGS: Clear. CARDIAC: S1 and S2. Regular. ABDOMEN: Soft and obese. EXTREMITIES: No edema. NEUROLOGIC: She will withdrawal with her right arm and right leg and left foot, but does not withdraw with her left arm. She will not arouse to deep painful stimulation. LABORATORY DATA: White blood cell count 10.3, hematocrit 38.4, and platelet count 238. A pH of 7.55, pCO2 of 29, pO2 of 64 on SIMV rate 20, tidal volume 500, PEEP 5, pressure support 10, and FiO2 of 40%. Sodium 140, potassium 5.1, chloride 98, CO2 of 24, BUN 36, creatinine 1.3, and glucose 321. X-ray shows minimal left pleural effusion, ET tube is in good position. She has an NG tube. ASSESSMENT: 1. Right middle cerebral artery distribution infarct. 2. Respiratory failure. 3. Chronic pleural effusion. 4. Diastolic heart dysfunction. PLAN: 1. The patient will remain on mechanical ventilation. I would recommend Neurology consultation for disposition regarding her stroke. 2. She is currently on steroids. 3. Adjust insulin as needed. 4. Consider Palliative Care input. Job ID: [id number]
[2020-03-12] MEDS: Enoxaparin Sodium 100 MG/ML SYRINGE SC SCH ×2 (09:48→20:10)
[2020-03-12] MEDS: Aspirin 325 MG TAB PER TUBE SCH (09:49)
[2020-03-12] MEDS: Insulin Glargine 15 UNITS in Pre-Filled Syringe 1 EACH SC SCH (09:57)
[2020-03-12] MEDS: Sodium Chloride 0.9% 1,000 ML IV SCH (10:05)
[2020-03-12] MEDS: Morphine 2 MG/ML VIAL SLOW IVP PRN ×2 (10:51→14:27)
--- NOTE | 2020-03-12 13:26 | PDOC.EVN ---
Event Note - Event Note Event Note: discussed withflorencia- family desires aggressive tx
--- NOTE | 2020-03-12 17:22 | PDOC.EVN ---
Event Note - Event Note Event Note: CT brain 03/[address] 03/11
[2020-03-13] MEDS: HumaLOG 300 UNITS/3 ML VIAL SC PRN ×3 (01:16→11:46)
[2020-03-13] MEDS: Propofol 1,000 MG/100 ML VIAL IV PRN ×5 (01:33→23:39)
[2020-03-13] MEDS: Sodium Chloride 0.9% 1,000 ML IV SCH ×2 (01:34→23:39)
[2020-03-13 03:48] LABS: #Lymphocytes 1.2 thou/uL (1.20-3.40); #Monocytes 0.7 thou/uL (0.11-0.59); #Neutrophils 9.2 thou/uL (1.40-6.50); %Eosinophils 0.3 % (0.0-10.0); %Lymphocytes 10.9 % (21.0-51.0); %Monocytes 6.6 % (0.0-10.0); %Neutrophils 82.3 % (42.0-75.0); Hemoglobin 10.9 g/dL (12.0-16.0); Mean Corpuscular HGB CONC 30.3 g/dL (32.0-36.0); Mean Corpuscular Hemoglobin 27.3 pg (27.0-31.0); Mean Corpuscular Volume 90.2 fL (78.0-98.0); Mean Platelet Volume 9.7 fL (7.4-10.4); Platelet Count 231 thou/uL (130-400); RBC Distribution Width 15.6 % (11.5-14.5); White Blood Cell (WBC) Count 11.2 thou/uL (4.8-10.8)
[2020-03-13 04:31] LABS: Anion Gap 17 mmol/L (10-20); BUN (Urea Nitrogen) 44 mg/dL (9.8-20.1); Calc. Creatinine Clearance 45 mL/min (70-130); Calcium 8.6 mg/dL (7.8-10.44); Carbon Dioxide 29 mmol/L (23-31); Chloride 98 mmol/L (98-107); Estimated GFR-MDRD 37; Glucose 194 mg/dL (83-110); Potassium 4.3 mmol/L (3.5-5.1); Sodium 140 mmol/L (136-145)
[2020-03-13 07:53] LABS: Actual Bicarbonate (HCO3a) 31.2 mEq/L (22-28); Base Excess (BEa) 7.9 mEq/L (-2.0 to +3.0); CO2 Tension 38.5 mmHg (35.0-45.0); Carboxyhemoglobin (COHb) 0.3 gm% (0.0-3.0); Hemoglobin (Hb) 11.7 g/dL (12.0-16.0); O2 Tension (PaO2), arterial 76.6 mmHg (> 70.0); Potassium - ABG Lab 4.08 mmol/L (3.70-5.30); pH, Arterial 7.53 (7.35-7.45)
[2020-03-13 07:57] LABS: Puncture Site LRA
[2020-03-13 07:58] LABS: ALV-art Gradient 160.475 (0-20)
--- NOTE | 2020-03-13 08:02 | CT ---
PRELIMINARY REPORT/[facility]/EMERGENCY AFTER HOURS PROCEDURE: EXAM: CT Head Without Intravenous Contrast. CLINICAL HISTORY: F/U CVA TECHNIQUE: Axial computed tomography images of the head/brain without intravenous contrast. COMPARISON: CT\GA\SR - CTA ANGIO HEAD W WO - 03/11/2020 10:[address]\SR - CT BRAIN WO 03/11/2020 09:41 AM CDT FINDINGS: BRAIN: Interval progressive hypodensity of the right frontal parietal lobe infarct with associated subcortic al white matter hypodensity. Associated mildly increased mass-effect in the right cerebral hemisphere with effacement of the sulci with unchanged 4 mm leftward midline shift. Unchanged encephalomalacia of the left parietal infarction with subcortical white matter hypodensity in the left parietal and frontal lobes. No acute intracranial hemorrhage. VENTRICLES: No hydrocephalus. ORBITS: The orbits are unremarkable. SINUSES AND MASTOIDS: The paranasal sinuses and mastoid air cells are clear. SOFT TISSUES: No significant facial or scalp soft tissue swelling evident. No radiopaque foreign body is seen. BONES: No acute skull fracture. IMPRESSION: 1. Interval progressive hypodensity of the right frontal parietal lobe infarct and unchanged left par ietal infarct with associated subcortical white matter hypodensity. 2. Associated mildly increased mass-effect in the right cerebral hemisphere with effacement of the adams lci with unchanged 4 mm leftward midline shift. ELECTRONICALLY SIGNED BY: Dmitry Johnson DO Mar 13, 2020 4:06:12 AM CDT This report is intended for review by the ordering physician only, in accordance of law. If you recei ve this report in error, please call [facility] at [phone]. FINAL REPORT EMERGENCY AFTER HOURS CT BRAIN WITHOUT CONTRAST: I agree with the preliminary report given by [facility]. POS: OFF
--- NOTE | 2020-03-13 08:24 | PRG ---
DATE OF SERVICE: 03/13/2020 This is 35 minutes critical time, includes discussion with son over the phone. SUBJECTIVE: Ms. Vazquez remains intubated on mechanical ventilation. Neurologically, I can get her to follow commands by squeezing her right arm and moving both legs. She will not open her eyes vigorously and she cannot move her left arm. OBJECTIVE: VITAL SIGNS: As follows, temperature is 99.7, pulse 101, blood pressure 119/75, O2 saturation 98%. 24-hour intake 1601, output 1245. HEENT: Unremarkable. NECK: No JVD. CARDIAC: S1 and S2, somewhat irregular. LUNGS: Clear. ABDOMEN: Soft, nontender. EXTREMITIES: No edema. LABORATORY DATA: White blood cell count 11.2, hematocrit 36.1, and platelet count 231. Sodium 140, potassium 4.3, chloride 98, CO2 of 29, BUN 44, creatinine 1.3, and glucose 194. ABG; pH 7.53, pCO2 of 38, pO2 of 76, SIMV rate 12, tidal volume 500. Chest x-ray shows no significant change. ASSESSMENT: 1. Right middle cerebral artery distribution infarct on CT with progressive infarcts since last scan. 2. Underlying diastolic heart failure with a recurrent left pleural effusion. 3. Chronic obstructive pulmonary disease. PLAN: I discussed with son on the phone. He is going to come up and see her today. I think he needs to see how bad this is in order to aid him in decision making. The patient does have a DNAR order on the chart. My bias would be to extubate and just make her comfortable as I do not think her recovery is going to be expected. I am going to stop the Lovenox as this is probably contraindicated in high doses given the evolving infarct. Job ID: [id number]
--- NOTE | 2020-03-13 08:25 | RAD ---
PORTABLE CHEST 1 VIEW: DATE: 03/13/2020. TIME: 3:21 AM. HISTORY: Respiratory failure. FINDINGS/IMPRESSION: No significant interval change is seen since the previous day's exam. POS: OFF
[2020-03-13] MEDS: Insulin Glargine 15 UNITS in Pre-Filled Syringe 1 EACH SC SCH (09:20)
[2020-03-13] MEDS: Aspirin 325 MG TAB PER TUBE SCH ×2 (09:20→09:27)
--- NOTE | 2020-03-13 17:06 | PDOC.HOSPP ---
- Subjective Encounter Date: 03/13/20 Encounter Time: 12:30 Subjective: on vent, not in distress - Objective Vital Signs & Weight: Vital Signs (12 hours) Temp Pulse Pulse Pulse Resp BP BP 03/13/20 16:00 19 03/13/20 14:11 88 96/69 03/13/20 14:10 81 12 03/13/20 14:00 13 03/13/20 13:00 99.9 F H 03/13/20 12:00 20 03/13/20 11:43 92 97 102/59 L 03/13/20 11:42 98 103 H 102/59 L 03/13/20 11:16 86 102/59 L 03/13/20 10:00 14 03/13/20 08:36 97 22 H 03/13/20 08:00 98.9 F 14 03/13/20 07:11 12 03/13/20 06:00 12 BP Pulse Ox Pulse Ox Pulse Ox 03/13/20 16:00 03/13/20 14:11 03/13/20 14:10 98 03/13/20 14:00 03/13/20 13:00 03/13/20 12:00 03/13/20 11:43 112/87 97 97 03/13/20 11:42 112/87 97 97 03/13/20 11:16 03/13/20 10:00 03/13/20 08:36 99 03/13/20 08:00 03/13/20 07:11 98 03/13/20 06:00 Weight Admit Weight 187 lb 9.814 oz Weight 187 lb 9.814 oz Most Recent Monitor Data Heart Rate from ECG 102 NIBP 124/85 NIBP BP-Mean 98 Respiration from ECG 19 SpO2 93 I&O: 03/12/20 03/13/20 03/14/20 06:59 06:59 06:59 Intake Total 1136 1601 Output Total 1060 1245 555 Balance 76 356 -555 Result Diagrams: 03/13/20 03:32 03/13/20 03:32 Additional Labs: Accuchecks 03/13/20 03/13/20 03/12/20 11:48 01:19 18:05 POC Glucose 187 H 227 H 216 H 03/12/20 03/12/20 12:11 01:18 POC Glucose 356 H 237 H Hospitalist ROS - Medication Medications: Active Medications Generic Name Dose Route Start Last Admin Trade Name Freq PRN Reason Stop Dose Admin Acetaminophen 650 mg 03/11/20 11:38 03/12/20 11:13 Tylenol TN 650 mg Q4H PRN Administration Headache/Fever/Mild Pain (1-3) Albuterol/Ipratropium 3 ml 03/11/20 19:00 03/13/20 14:10 Duoneb NEB 3 ml [id number] WONG Administration Aspirin 325 mg 03/12/20 09:00 03/13/20 09:27 Aspirin PER TUBE Not Given DAILY WONG Sodium Chloride 1,000 mls @ 50 mls/hr 03/11/20 13:45 03/13/20 01:34 Normal Saline 0.9% IV 1,000 mls .Q20H WONG Administration Insulin Glargine 15 units/ 0.15 mls @ 0 mls/hr 03/12/20 09:00 03/13/20 09:20 Miscellaneous Medication SC 0.15 mls QAM WONG Administration Insulin Human Lispro 0 units 03/12/20 04:32 03/13/20 11:46 Humalog SC 3 unit .AGGRESSIVE SLIDING PRN Administration AGGRESSIVE SLIDING SCALE Protocol Morphine Sulfate 2 mg 03/11/20 13:44 03/12/20 14:27 Morphine SLOW IVP 04/10/20 13:44 2 mg Q1H PRN Administration Breakthrough Pain/Agitation Propofol 1,000 mg 03/11/20 13:44 03/13/20 16:20 Diprivan IV 04/10/20 13:44 1,000 mg INF PRN Administration TO ACHIEVE GOAL RASS Protocol - Exam General Appearance: ill appearing Eye: PERRL, anicteric sclera ENT: no oropharyngeal lesions, dry oral mucosa Neck: supple, no JVD Heart: RRR, no murmur Respiratory: no wheezes, rales, rhonchi Gastrointestinal: soft, non-tender, non-distended, normal bowel sounds Extremities: no cyanosis, no clubbing Hosp A/P (1) Acute respiratory failure with hypercapnia Code(s): J96.02 - ACUTE RESPIRATORY FAILURE WITH HYPERCAPNIA Status: Acute (2) CVA (cerebral vascular accident) Code(s): I63.9 - CEREBRAL INFARCTION, UNSPECIFIED Status: Acute Qualifiers: CVA mechanism: thrombosis Precerebral and cerebral artery: middle cerebral artery Laterality of affected vessel: right Qualified Code(s): I63.311 - Cerebral infarction due to thrombosis of right middle cerebral artery (3) NSTEMI (non-ST elevated myocardial infarction) Code(s): I21.4 - NON-ST ELEVATION (NSTEMI) MYOCARDIAL INFARCTION Status: Acute (4) COPD exacerbation Code(s): J44.1 - CHRONIC OBSTRUCTIVE PULMONARY DISEASE W (ACUTE) EXACERBATION Status: Acute (5) CAD (coronary artery disease) Code(s): I25.10 - ATHSCL HEART DISEASE OF [place] CORONARY ARTERY W/O ANG PCTRS Status: Chronic Qualifiers: Coronary Disease-Associated Artery/Lesion type: bypass graft [place] vs. transplanted heart: [place] heart Associated angina: without angina Qualified Code(s): I25.810 - Atherosclerosis of coronary artery bypass graft(s) without angina pectoris (6) COPD (chronic obstructive pulmonary disease) Status: Chronic Qualifiers: COPD type: chronic bronchitis (7) DM type 2 (diabetes mellitus, type 2) Status: Chronic Qualifiers: Diabetes mellitus intermediate insulin use: with intermediate use Diabetes mellitus complication status: with kidney complications Diabetes mellitus complication detail: with chronic kidney disease Chronic kidney disease stage : stage 3 (moderate) Qualified Code(s): E11.22 - Type 2 diabetes mellitus with diabetic chronic kidney disease; N18.3 - Chronic kidney disease, stage 3 ( moderate); Z79.4 - penitentiary (current) use of insulin (8) Hypertension Code(s): I10 - ESSENTIAL (PRIMARY) HYPERTENSION Status: Chronic Qualifiers: Hypertension type: essential hypertension Qualified Code(s): I10 - Essential (primary) hypertension - Plan is on asp, lantus, nebs poor prognosis family has a meeting with palliative care in am old left parietal cva and now ac right cva with left hemiparesis has multiple med issues
[2020-03-14 03:44] LABS: #Eosinphils 0.2 thou/uL (0.0-0.7); #Lymphocytes 1.2 thou/uL (1.20-3.40); #Monocytes 0.6 thou/uL (0.11-0.59); #Neutrophils 7.1 thou/uL (1.40-6.50); %Basophils 0.3 % (0.0-1.0); %Eosinophils 1.8 % (0.0-10.0); %Lymphocytes 13.3 % (21.0-51.0); %Monocytes 6.5 % (0.0-10.0); %Neutrophils 78.2 % (42.0-75.0); Hemoglobin 10.6 g/dL (12.0-16.0); Mean Corpuscular HGB CONC 31.1 g/dL (32.0-36.0); Mean Corpuscular Hemoglobin 28.4 pg (27.0-31.0); Mean Corpuscular Volume 91.3 fL (78.0-98.0); Mean Platelet Volume 9.7 fL (7.4-10.4); Platelet Count 210 thou/uL (130-400); RBC Distribution Width 15.4 % (11.5-14.5); Red Blood Cell (RBC) Count 3.74 mill/uL (4.20-5.40); White Blood Cell (WBC) Count 9.1 thou/uL (4.8-10.8)
[2020-03-14 04:03] LABS: Anion Gap 13 mmol/L (10-20); BUN (Urea Nitrogen) 34 mg/dL (9.8-20.1); Calc. Creatinine Clearance 62 mL/min (70-130); Calcium 8.2 mg/dL (7.8-10.44); Carbon Dioxide 31 mmol/L (23-31); Chloride 100 mmol/L (98-107); Estimated GFR-MDRD 54; Glucose 164 mg/dL (83-110); Potassium 3.8 mmol/L (3.5-5.1); Sodium 140 mmol/L (136-145)
[2020-03-14] MEDS: HumaLOG 300 UNITS/3 ML VIAL SC PRN ×3 (05:13→16:12)
[2020-03-14] MEDS: Propofol 1,000 MG/100 ML VIAL IV PRN ×3 (05:38→19:46)
[2020-03-14 07:29] LABS: Base Excess (BEa) 2.9 mEq/L (-2.0 to +3.0); CO2 Tension 39.6 mmHg (35.0-45.0); Calcium, Ionized (arterial) 1.09 mmol/L (1.12-1.30); Carboxyhemoglobin (COHb) 0.3 gm% (0.0-3.0); Hemoglobin (Hb) 11.3 g/dL (12.0-16.0); Potassium - ABG Lab 3.66 mmol/L (3.70-5.30); pH, Arterial 7.45 (7.35-7.45)
[2020-03-14 07:52] LABS: Puncture Site RRAD
--- NOTE | 2020-03-14 07:52 | RAD ---
EXAM: Single view of the chest HISTORY: Ventilated patient with respiratory failure COMPARISON: 03/13/2020 FINDINGS: Single view of the chest shows an enlarged but stable cardiomediastinal silhouette. The pat ient is status post sternotomy. The endotracheal tube and NG tube are unchanged in position. There is a moderate left pleural effusion. There may also be a small right pleural effusion. Atelectasis is seen in the lung bases. The bones are unremarkable IMPRESSION: Stable exam
--- NOTE | 2020-03-14 08:18 | PRG ---
DATE OF SERVICE: 03/14/2020 A 35 minutes of critical care time. SUBJECTIVE: The patient remains intubated on mechanical ventilation with no acute changes overnight. OBJECTIVE: VITAL SIGNS: Temperature 98.2, pulse 83, blood pressure 123/67, and O2 saturation 100%. A 24-hour intake 1866 and output 1020. HEENT: Unremarkable. NECK: No adenopathy or JVD. LUNGS: Clear. CARDIAC: S1 and S2. Regular. ABDOMEN: Soft and nontender. EXTREMITIES: No edema. NEUROLOGIC: move left arm. LABORATORY DATA: White count 9.1, hematocrit 34.2, and platelet count 210. Sodium 140, potassium 3.8, chloride 100, CO2 of 31, BUN 34, creatinine 1.0, and glucose 164. Chest x-ray shows no significant change. ASSESSMENT: 1. Cerebrovascular accident. 2. Acute respiratory failure requiring mechanical ventilation. 3. Underlying diastolic heart failure with chronic left pleural effusion. PLAN: The patient currently has a DNAR order on the chart. Palliative Care has a meeting with the family today to discuss goals of care. I am not sure how she , but I hope the family will have an understanding of her poor prognosis. The patient's Lovenox was stopped yesterday because of the evolving stroke. Continue supportive care with enteral tube feeds, mechanical ventilation. Job ID: [id number]
[2020-03-14] MEDS: Aspirin 325 MG TAB PER TUBE SCH (09:00)
[2020-03-14] MEDS: Insulin Glargine 15 UNITS in Pre-Filled Syringe 1 EACH SC SCH (09:00)
[2020-03-14] MEDS ORDERED: Sodium Chloride 0.9% (PF) 10 ML VIAL FS PRN (09:19)
[2020-03-14] MEDS: Pantoprazole 40 MG VIAL IVP SCH (11:12)
--- NOTE | 2020-03-14 13:22 | PDOC.HOSPP ---
- Subjective Encounter Date: 03/14/20 Encounter Time: 13:00 Subjective: on vent, obtunded - Objective Vital Signs & Weight: Vital Signs (12 hours) Temp Pulse Resp Pulse Ox 03/14/20 10:21 97 03/14/20 10:00 20 03/14/20 08:00 99.2 F 17 98 03/14/20 06:00 15 03/14/20 04:00 12 03/14/20 03:28 81 03/14/20 02:00 12 Weight Admit Weight 187 lb 9.814 oz Weight 187 lb 9.814 oz Most Recent Monitor Data Heart Rate from ECG 87 NIBP 118/81 NIBP BP-Mean 93 Respiration from ECG 16 SpO2 97 I&O: 03/13/20 03/14/20 03/15/20 06:59 06:59 06:59 Intake Total 1601 1866 Output Total 1245 1020 245 Balance 356 846 -245 Result Diagrams: 03/14/20 03:23 03/14/20 03:23 Additional Labs: Accuchecks 03/14/20 03/14/20 03/13/20 11:12 00:51 17:29 POC Glucose 182 H 152 H 154 H 03/13/20 03/13/20 03/12/20 11:48 01:19 18:05 POC Glucose 187 H 227 H 216 H 03/12/20 03/12/20 12:11 01:18 POC Glucose 356 H 237 H Hospitalist ROS - Medication Medications: Active Medications Generic Name Dose Route Start Last Admin Trade Name Freq PRN Reason Stop Dose Admin Acetaminophen 650 mg 03/11/20 11:38 03/12/20 11:13 Tylenol [place] 650 mg Q4H PRN Administration Headache/Fever/Mild Pain (1-3) Albuterol/Ipratropium 3 ml 03/11/20 19:00 03/14/20 07:44 Duoneb NEB 3 ml P3OT-FS WONG Administration Aspirin 325 mg 03/12/20 09:00 03/14/20 09:00 Aspirin PER TUBE 325 mg DAILY WONG Administration Sodium Chloride 1,000 mls @ 50 mls/hr 03/11/20 13:45 03/13/20 23:39 Normal Saline 0.9% IV 1,000 mls .Q20H WONG Administration Insulin Glargine 15 units/ 0.15 mls @ 0 mls/hr 03/12/20 09:00 03/14/20 09:00 Miscellaneous Medication SC 0.15 mls QAM WONG Administration Insulin Human Lispro 0 units 03/12/20 04:32 03/14/20 11:14 Humalog SC 3 unit .AGGRESSIVE SLIDING PRN Administration AGGRESSIVE SLIDING SCALE Protocol Morphine Sulfate 2 mg 03/11/20 13:44 03/12/20 14:27 Morphine SLOW IVP 04/10/20 13:44 2 mg Q1H PRN Administration Breakthrough Pain/Agitation Pantoprazole Sodium 40 mg 03/14/20 09:00 03/14/20 11:12 Protonix IVP 40 mg DAILY WONG Administration Propofol 1,000 mg 03/11/20 13:44 03/14/20 05:38 Diprivan IV 04/10/20 13:44 1,000 mg INF PRN Administration TO ACHIEVE GOAL RASS Protocol - Exam General Appearance: ill appearing Eye: PERRL, anicteric sclera ENT: no oropharyngeal lesions, dry oral mucosa Neck: supple, no JVD Heart: RRR, no murmur Respiratory: no wheezes, no rales, rhonchi Gastrointestinal: soft, non-tender, non-distended, normal bowel sounds Extremities: no cyanosis, 1+ LE edema Hosp A/P (1) Acute respiratory failure with hypercapnia Code(s): J96.02 - ACUTE RESPIRATORY FAILURE WITH HYPERCAPNIA Status: Acute (2) CVA (cerebral vascular accident) Code(s): I63.9 - CEREBRAL INFARCTION, UNSPECIFIED Status: Acute Qualifiers: CVA mechanism: thrombosis Precerebral and cerebral artery: middle cerebral artery Laterality of affected vessel: right Qualified Code(s): I63.311 - Cerebral infarction due to thrombosis of right middle cerebral artery (3) NSTEMI (non-ST elevated myocardial infarction) Code(s): I21.4 - NON-ST ELEVATION (NSTEMI) MYOCARDIAL INFARCTION Status: Acute (4) COPD exacerbation Code(s): J44.1 - CHRONIC OBSTRUCTIVE PULMONARY DISEASE W (ACUTE) EXACERBATION Status: Acute (5) CAD (coronary artery disease) Code(s): I25.10 - ATHSCL HEART DISEASE OF [place] CORONARY ARTERY W/O ANG PCTRS Status: Chronic Qualifiers: Coronary Disease-Associated Artery/Lesion type: bypass graft [place] vs. transplanted heart: [place] heart Associated angina: without angina Qualified Code(s): I25.810 - Atherosclerosis of coronary artery bypass graft(s) without angina pectoris (6) COPD (chronic obstructive pulmonary disease) Status: Chronic Qualifiers: COPD type: chronic bronchitis (7) DM type 2 (diabetes mellitus, type 2) Status: Chronic Qualifiers: Diabetes mellitus terminal superintendent insulin use: with terminal superintendent use Diabetes mellitus complication status: with kidney complications Diabetes mellitus complication detail: with chronic kidney disease Chronic kidney disease stage : stage 3 (moderate) Qualified Code(s): E11.22 - Type 2 diabetes mellitus with diabetic chronic kidney disease; N18.3 - Chronic kidney disease, stage 3 ( moderate); Z79.4 - long-term (current) use of insulin (8) Hypertension Code(s): I10 - ESSENTIAL (PRIMARY) HYPERTENSION Status: Chronic Qualifiers: Hypertension type: essential hypertension Qualified Code(s): I10 - Essential (primary) hypertension - Plan is on asp, lantus, nebs poor prognosis family had a meeting with palliative care this am, have decided to go for withdrawal of care in am after grand kids see 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
[2020-03-14] MEDS: Sodium Chloride 0.9% 1,000 ML IV SCH (16:40)
[2020-03-15] MEDS: Propofol 1,000 MG/100 ML VIAL IV PRN (02:49)
[2020-03-15] MEDS: HumaLOG 300 UNITS/3 ML VIAL SC PRN (05:36)
[2020-03-15 07:15] LABS: Actual Bicarbonate (HCO3a) 29.4 mEq/L (22-28); Base Excess (BEa) 3.7 mEq/L (-2.0 to +3.0); CO2 Tension 48.6 mmHg (35.0-45.0); Calcium, Ionized (arterial) 1.15 mmol/L (1.12-1.30); Carboxyhemoglobin (COHb) 0.6 gm% (0.0-3.0); Hemoglobin (Hb) 12.8 g/dL (12.0-16.0); O2 Tension (PaO2), arterial 75.1 mmHg (> 70.0); Potassium - ABG Lab 3.62 mmol/L (3.70-5.30)
[2020-03-15 07:40] VITALS: BP 119/58
[2020-03-15 07:43] LABS: Puncture Site RRAD
[2020-03-15] MEDS ORDERED: Lorazepam 2 MG/ML VIAL SLOW IVP PRN (08:09)
--- NOTE | 2020-03-15 08:26 | PRG ---
DATE OF SERVICE: 03/15/2020 35 minutes of critical care time. SUBJECTIVE: The patient is resting comfortably on mechanical ventilation. OBJECTIVE: VITAL SIGNS: Temperature 98.8, pulse 79, blood pressure 117/58. Currently sedated, on propofol. Intake 24 hours 1812, output 960. HEENT: Unremarkable. NECK: No JVD. LUNGS: Clear anteriorly. CARDIAC: S1, S2, regular. ABDOMEN: Soft. EXTREMITIES: No edema. NEUROLOGIC: She cannot move her left arm or left leg. LABORATORY DATA: PH 7.40, pCO2 of 48, pO2 of 75 on SIMV rate 12, tidal volume 450, PEEP 5, pressure support 10, FiO2 of 40%. ASSESSMENT: 1. Status post hemispheric stroke with left-sided hemiparesis. 2. Acute respiratory failure requiring mechanical ventilation. 3. History of diastolic heart failure with chronic left pleural effusion. PLAN: I spoke with the patient's 3 sons yesterday to discuss goals of care. It sounds like they are leaning toward compassionate extubation. They told me that she would not want to have a tracheostomy or feeding tube. I told them I was not confident that she could maintain her airway after extubation, but we will have to see. I am anticipating extubation later this morning. Job ID: [id number]
[2020-03-15] MEDS: Morphine 4 MG/ML VIAL SLOW IVP PRN ×2 (09:34→11:06)
[2020-03-15] MEDS: Insulin Glargine 15 UNITS in Pre-Filled Syringe 1 EACH SC SCH (09:35)
[2020-03-15] MEDS: Aspirin 325 MG TAB PER TUBE SCH (09:35)
[2020-03-15] MEDS: Pantoprazole 40 MG VIAL IVP SCH (09:35)
[2020-03-15 09:45] VITALS: TEMP 98.8
--- NOTE | 2020-03-16 08:52 | DIS ---
DATE OF ADMISSION: 03/11/2020 DATE OF DISCHARGE: 03/15/2020 DATE OF : 03/15/2020 at 12:01 p.m. PRIMARY CAUSE OF : Right MCA stroke with left hemiparesis 5 days, acute respiratory failure with hypoxia 5 days, chronic obstructive pulmonary disease exacerbation 5 days. SECONDARY CAUSE OF : Diabetes mellitus type 2, hypertension, coronary artery disease, [id number] myocardial infarction. BRIEF COURSE DURING HOSPITALIZATION: The patient initially got admitted on 03/11/2020 with complaints of shortness of breath and being unresponsive at home. The patient's saturations were 60% when EMS arrived, and she was intubated and brought to the emergency room. The patient continued on the ventilator for the entire length of her stay here. She was evaluated by Dr. Richardson for Pulmonology. The patient has had recent hospitalization for CHF exacerbation and COPD exacerbation as well and was discharged on 03/07/2020. She had known diastolic dysfunction. Ms. Vazquez has had a severe deconditioning on the ventilator and was not weanable. Multiple discussions were held by Dr. Richardson with family members. They opted for withdrawal of care today. The patient was pronounced at 12:01 p.m. She was found to have had acute CVA on admission with left hemiparesis in addition to CHF exacerbation, COPD exacerbation, and acute on chronic respiratory failure as well. The body will be released to family per hospital protocol. Job ID: [id number]
== END 2020-03-15 13:19 | disposition expired | DRG 208 ==
LOC: ERS 08:09 → CCU 12:51
PROVIDERS: ADMIT Internal Medicine; ATTEND Internal Medicine
PROC: 5A1945Z Respiratory Ventilation, 24-96 Consecutive Hours (ICD-10-PCS; principal; 2020-03-11)
DX: J96.21 Acute and chronic respiratory failure with hypoxia (principal); I21.4 Non-ST elevation (NSTEMI) myocardial infarction; I63.311 Cerebral infarction due to thrombosis of right middle cerebral artery; I50.33 Acute on chronic diastolic (congestive) heart failure; G81.94 Hemiplegia, unspecified affecting left nondominant side; J44.1 Chronic obstructive pulmonary disease with (acute) exacerbation; J90 Pleural effusion, not elsewhere classified; I13.0 Hypertensive heart and chronic kidney disease with heart failure and stage 1 through stage 4 chronic kidney disease, or unspecified chronic kidney disease; Z51.5 Encounter for palliative care; R53.81 Other malaise; Z66 Do not resuscitate; Z20.828 Contact with and (suspected) exposure to other viral communicable diseases; J96.22 Acute and chronic respiratory failure with hypercapnia; I25.10 Atherosclerotic heart disease of native coronary artery without angina pectoris; E87.5 Hyperkalemia; E11.22 Type 2 diabetes mellitus with diabetic chronic kidney disease; N18.3 Chronic kidney disease, stage 3 (moderate); Z90.49 Acquired absence of other specified parts of digestive tract; Z98.42 Cataract extraction status, left eye; Z98.41 Cataract extraction status, right eye; Z87.891 Personal history of nicotine dependence; Z79.4 Long term (current) use of insulin; Z95.1 Presence of aortocoronary bypass graft
CPT/HCPCS: 36415; 36416; 51702; 70450; 70496; 70498; 71045; 80048; 80053; 81003; 81015; 82550; 82553; 82728; 82805; 83605; 83690; 83735; 83880; 84484; 85025; 85379; 85610; 85730; 86140; 87040; 87149; 93005; 94002; 94003; 94640; 96361; 96365; 96366; 96368; 96372; 96375; C9113; J0456; J0696; J1100; J1650; J1815; J2060; J2270; J2405; J2704; J7620; Q9967; U0002